=== PATIENT | male | born 1990 | race Caucasian/White ===

== ENCOUNTER 2019-06-23 10:38 | Inpatient (IN) | payer BC ==
[2019-06-23] VITALS (10 sets, daily range): BP systolic 139–155; BP diastolic 78–89
[~2019-06-23] VITALS: Ht 177.8 cm; Wt 100.0 kg
[2019-06-23] MEDS ORDERED: PROPOFOL 50 ML IV ONE ×5 (11:06→17:35)
[2019-06-23 11:09] LABS: BASO % 0 % (0-3); EOS % 0 % (0-3); HEMATOCRIT 48.4 % (39.0-53.0); HEMOGLOBIN 15.9 g/dL (13.0-17.5); LYMPH # 2.7 x10^3/uL (1.0-4.8); LYMPH % 19 % (24-48); MEAN CORPUSCULAR HEMOGLOBIN 30 pg (25-35); MEAN CORPUSCULAR HGB CONC 33 g/dL (31-37); MEAN CORPUSCULAR VOLUME 93 fL (79-100); MONO # 3.1 x10^3/uL (0.0-1.1); MONO % 22 % (0-9); NEUT # 8.3 x10^3/uL (1.8-7.7); NEUT % 59 % (31-73); PLATELET COUNT 352 x10^3/uL (140-400); RED BLOOD COUNT 5.22 x10^6/uL (4.30-5.70); RED CELL DISTRIBUTION WIDTH 12.8 % (11.5-14.5); WHITE BLOOD COUNT 14.2 x10^3/uL (4.0-11.0)
[2019-06-23] MEDS ORDERED: MIDAZOLAM HCL IV ONE (11:15)
[2019-06-23] MEDS ORDERED: NS IV ONE (11:15)
[2019-06-23] MEDS ORDERED: IV NORMAL SALINE 1000ML BAG 1,000 ML IV ONE ×3 (11:15→15:45)
--- NOTE | 2019-06-23 11:15 | PHYS DOC ---
Past Medical History Past Medical History: Seizure Additional Past Medical Histor: MS Past Medical History Limited due to acuity of condition/active seizure Past Surgical History: No Surgical History Past Surgical History Limited due to acuity of condition/active seizures Smoking Status: Never Smoker Alcohol Use: Occasionally Drug Use: Marijuana Social History Limited due to acuity of condition/active seizures Adult General Chief Complaint Chief Complaint: SEIZURE HPI HPI Patient is a 29 year old male presents to ED with ongoing seizure lasting greater than 10 minutes. Patient has history of MS and seizures in the past. His last seizure was roughly 1 year ago that was severe enough to be taken to [facility]. According to his parents and partner he was placed on a unknown seizure medication following last episode. This medication was stopped by his neurologist Perfecto Tuttle APRN at [facility] in December. Prior to this evening he had been dealing with gastroenteritis-like symptoms with nausea and vomiting and possible fever. His partner said that he was very lethargic thi s morning and his partner had to dress him. They were on the way to an urgent care when patient's right arm stiffened and he was unable to move it. They were in the middle of it going down the stairs. His partner stated that he carried the patient down the stairs. The patient then began seizing. He and his partner both fell to the ground. His partner was unsure about any head trauma. His partner reports concern due to vomiting and possible aspiration and therefore he placed him on his side and immediately dialed 911 and then patient's parents. In route to the hospital via EMT he received 10 mg of Versed IM which he was unresponsive to. No history of recent ETOH abuse or withdrawal seizures. Partner reports use of THC gummy bears this weekend during trip to [place]. Reports last used S at06/20/19. HPI limited due to acuity of condition/active seizure Review of Systems Review of Systems Constitutional: Reports subjective fever GI: Reports nausea and vomiting Neurologic: Reports active seizure like activity ROS limited due to acuity of condition/ active seizure Current Medications Current Medications Current Medications Medications (Trade) Dose Ordered Sig/Placido Start Time Stop Time Status Last Admin Dose Admin Acyclovir Sodium 800 mg/Dextrose 266 ml @ 266 mls/hr 1X ONCE 06/23/19 14:45 06/23/19 15:44 DC 06/23/19 15:18 266 MLS/HR Ceftriaxone Sodium (Rocephin) 2 gm 1X ONCE 06/23/19 14:30 06/23/19 14:31 DC 06/23/19 15:16 2 GM Dexamethasone Sodium Phosphate (Decadron) 10 mg 1X ONCE 06/23/19 14:30 06/23/19 14:31 DC 06/23/19 15:18 10 MG Levetiracetam 1000 mg/Dextrose 110 ml @ 440 mls/hr 1X ONCE 06/23/19 12:00 06/23/19 12:14 DC 06/23/19 12:19 440 MLS/HR Lidocaine HCl (Lidocaine 1% 20ml Vial) 20 ml 1X ONCE 06/23/19 12:30 06/23/19 12:31 DC 06/23/19 15:00 20 ML Lorazepam (Ativan Inj) 4 mg 1X ONCE 06/23/19 14:30 06/23/19 14:31 DC 06/23/19 14:22 4 MG Lorazepam 40 mg/ Sodium Chloride 270 ml @ 0 mls/hr CONT PRN 06/23/19 14:30 06/23/19 15:02 6.3 MLS/HR Midazolam HCl (Versed) 5 mg 1X ONCE 06/23/19 13:15 06/23/19 13:16 DC 06/23/19 10:49 5 MG Midazolam HCl 50 mg/Sodium Chloride 50 ml @ 1 mls/hr 1X ONCE 06/23/19 11:15 06/25/19 13:14 06/23/19 11:43 1 MLS/HR Propofol 50 ml @ 0 mls/hr 1X ONCE 06/23/19 11:30 06/23/19 11:31 DC 06/23/19 11:19 3 MLS/HR Rocuronium [place] (Zemuron) 50 mg 1X ONCE 06/23/19 13:15 06/23/19 13:16 DC 06/23/19 10:50 50 MG Sodium Chloride 1,000 ml @ 1,000 mls/hr 1X ONCE 06/23/19 12:30 06/23/19 13:29 DC 06/23/19 13:24 1,000 MLS/HR Vancomycin HCl 2 gm/Sodium Chloride 500 ml @ 250 mls/hr 1X ONCE 06/23/19 14:30 06/23/19 16:29 DC 06/23/19 17:27 250 MLS/HR Allergies Allergies Allergies Coded Allergies Type Severity Reaction Last Updated Verified No Known Drug Allergies 06/23/19 No Physical Exam Physical Exam Constitutional: Well developed, well nourished, active tonic clonic seizure HENT: Normocephalic, atraumatic, TMs clear, oropharynx moist Eyes: PERRL, conjunctiva normal, no discharge Neck: Supple, no stridor, no edema Cardiovascular: Heart rate tachycardic, regular rhythm Lungs & Thorax: Bilateral breath sounds diminished upon arrival, no wheezing /rales/rhonchi, required supplemental ventilation with BVM due to decreased respiratory effort Abdomen: Soft, no tenderness, no distention Skin: Warm, dry, no erythema, no laceration, area with raised lesions likely genital warts Extremities: No deformity, no edema Neurologic: Active generalized tonic clonic seizure activity, nonverbal Current Patient Data Vital Signs Vital Signs Date Time Temp Pulse Resp B/P (MAP) Pulse Ox O2 Delivery O2 Flow Rate FiO2 06/23/19 15:02 86 20 94 06/23/19 13:00 Ventilator 06/23/19 10:39 98.2 202/106 (138) 98.2 Lab Values Laboratory Tests Test 06/23/19 10:43 06/23/19 10:44 06/23/19 10:58 06/23/19 11:40 Glucose (Fingerstick) 154 mg/dL (70-99) H White Blood Count 14.2 x10^3/uL (4.0-11.0) H Red Blood Count 5.22 x10^6/uL (4.30-5.70) Hemoglobin 15.9 g/dL (13.0-17.5) Hematocrit 48.4 % (39.0-53.0) Mean Corpuscular Volume 93 fL (79-100) Mean Corpuscular Hemoglobin 30 pg (25-35) Mean Corpuscular Hemoglobin Concent 33 g/dL (31-37) Red Cell Distribution Width 12.8 % (11.5-14.5) Platelet Count 352 x10^3/uL (140-400) Neutrophils (%) (Auto) 59 % (31-73) Lymphocytes (%) (Auto) 19 % (24-48) L Monocytes (%) (Auto) 22 % (0-9) H Eosinophils (%) (Auto) 0 % (0-3) Basophils (%) (Auto) 0 % (0-3) Neutrophils # (Auto) 8.3 x10^3/uL (1.8-7.7) H Lymphocytes # (Auto) 2.7 x10^3/uL (1.0-4.8) Monocytes # (Auto) 3.1 x10^3/uL (0.0-1.1) H Eosinophils # (Auto) 0.0 x10^3/uL (0.0-0.7) Basophils # (Auto) 0.0 x10^3/uL (0.0-0.2) Segmented Neutrophils % 38 % (35-66) Band Neutrophils % 13 % (0-9) H Lymphocytes % 24 % (24-48) Monocytes % 25 % (0-10) H Platelet Estimate Adequate (ADEQUATE) Prothrombin Time 14.6 SEC (11.7-14.0) H Prothrombin Time INR 1.2 (0.8-1.1) H Activated Partial Thromboplast Time 33 SEC (24-38) Sodium Level 145 mmol/L (136-145) Potassium Level 4.8 mmol/L (3.5-5.1) Chloride Level 102 mmol/L (98-107) Carbon Dioxide Level 22 mmol/L (21-32) Anion Gap 21 (6-14) H Blood Urea Nitrogen 19 mg/dL (8-26) Creatinine 1.1 mg/dL (0.7-1.3) Estimated GFR (Cockcroft-Gault) 80.3 BUN/Creatinine Ratio 17 (6-20) Glucose Level 174 mg/dL (70-99) H Lactic Acid Level 14.2 mmol/L (0.4-2.0) *H Calcium Level 10.0 mg/dL (8.5-10.1) Magnesium Level 2.6 mg/dL (1.8-2.4) H Total Bilirubin 0.4 mg/dL (0.2-1.0) Aspartate Amino Transferase (AST) 16 U/L (15-37) Alanine Aminotransferase (ALT) 27 U/L (16-63) Alkaline Phosphatase 60 U/L (46-116) Creatine Kinase 83 U/L (39-308) Total Protein 8.0 g/dL (6.4-8.2) Albumin 4.6 g/dL (3.4-5.0) Albumin/Globulin Ratio 1.4 (1.0-1.7) Ethyl Alcohol Level < 10 mg/dL (0-10) O2 Saturation 99 % (92-99) Arterial Blood pH 7.24 (7.35-7.45) L Arterial Blood pCO2 at Patient Temp 48 mmHg (35-46) H Arterial Blood pO2 at Patient Temp 215 mmHg (85-108) H Arterial Blood HCO3 20 mmol/L (21-28) L Arterial Blood Base Excess -7 mmol/L (-3-3) L Oxyhemoglobin 97.8 % Methemoglobin 0.6 % (0.0-1.9) Carbon Monoxide, Quantitative 0.3 % (0.0-1.9) FiO2 Vent 100% Urine Collection Type U cath Urine Color Sara Urine Clarity Clear Urine pH 5.5 Urine Specific [place] 1.025 Urine Protein 100 mg/dL (NEG-TRACE) Urine Glucose (UA) Negative mg/dL (NEG) Urine Ketones (Stick) 15 mg/dL (NEG) Urine Blood Negative (NEG) Urine Nitrite Negative (NEG) Urine Bilirubin Negative (NEG) Urine Urobilinogen Dipstick 1.0 mg/dL (0.2 mg/dL) Urine Leukocyte Esterase Negative (NEG) Urine RBC 0 /HPF (0-2) Urine WBC 5-10 /HPF (0-4) Urine Bacteria Moderate /HPF (0-FEW) Urine Mucus Marked /LPF Urine Opiates Screen Neg (NEG) Urine Methadone Screen Neg (NEG) Urine Barbiturates Neg (NEG) Urine Phencyclidine Screen Neg (NEG) Urine Amphetamine/Methamphetamine Neg (NEG) Urine Benzodiazepines Screen Pos (NEG) Urine Cocaine Screen Neg (NEG) Urine Cannabinoids Screen Pos (NEG) Urine Ethyl Alcohol Neg (NEG) Test 06/23/19 14:50 CSF Tube Number 3 CSF Volume 2.0 CSF Color Colorless CSF Clarity Clear CSF WBC 3 /cmm (Not Established) CSF RBC 1 /cmm (Not Established) CSF Glucose 80 mg/dL (37-70) H CSF Total Protein 46.6 mg/dL (15.0-45.0) H Laboratory Tests 06/23/19 10:44 Laboratory Tests 06/23/19 10:44 Microbiology 06/23/19 CSF Gram Stain - Final, Complete EKG EKG [] Radiology/Procedures Radiology/Procedures PROCEDURE: PORTABLE CHEST 1V EXAM: CHEST 1 VIEW History: Hypoxia COMPARISON: None available. TECHNIQUE: Single portable radiograph of the chest FINDINGS: The ET tube is identified in the trachea the level of the clavicles. The feeding tube is identified in the stomach. The lungs are clear bilaterally. The costophrenic sulci are clear and well demarcated. IMPRESSION: 1. ET tube, feeding tube in place. 2. The lungs are clear. Electronically signed by: Onur Perez MD (06/23/2019 11:29 AM) [id number] PROCEDURE: CT HEAD WO CONTRAST CT HEAD WO CONTRAST Indication: Seizure. Exposure: One or more of the following individualized dose reduction techniques were utilized for this examination: 1. Automated exposure control 2. Adjustment of the mA and/or kV according to patient size 3. Use of iterative reconstruction technique. Technique: Standard imaging without intravenous contrast. Comparison: None FINDINGS: No evidence of acute infarct cranial hemorrhage, mass effect, midline shift or abnormal extra-axial fluid collection. Generalized enlargement of ventricles and sulci relative to the patient's age. Patchy white matter low attenuation bilaterally. Partially visualized orbits unremarkable. No large scalp hematoma is seen. The partially visualized sinuses demonstrate mild ethmoid sinus mucosal thickening and minimal right maxillary sinus mucosal thickening. The mastoids appear clear. IMPRESSION: 1. No evidence of acute intracranial hemorrhage. 2. Generalized atrophy, abnormally advanced for the patient's age. 3. Patchy white matter low attenuation, abnormal for the patient's age. Nonspecific, considerations include demyelination, leukodystrophy or congenital disorder. Correlate with patient history. Electronically signed by: Sarath Higgins MD (06/23/2019 1:05 PM) [id number] Course & Med Decision Making Course & Med Decision Making Pertinent Labs and Imaging studies reviewed. (See chart for details) Patient with pmh of MS and prior seizure requiring intubation and ICU stay at [facility] presents via EMS in status epileptics. Patient no longer on anti-seizure medications. Hx of N/V and possible fever yesterday. Patient continued with tonic clonic generalized seizure despite 10mg of IM Versed by EMS and additional 5mg of IV Versed upon arrival. Decision to protect airway. ETT successfully placed. CXR with good position of ETT and no acute infiltration noted. Patient started on Propofol and Versed gtt. Some initial improvement of seizure like a ctivity. Patient subsequently required intermittent doses to IV Ativan. Versed gtt changed to Ativan gtt. Keppra bolus also provided. CT head without acute process. Labs obtained and posted to chart. WBC and bandemia noted. Lactic acid significantly elevated. Discussed case with Dr. Blair (neurology) who recommended LP and is in agreement with admission. LP performed and empiric antibiotics and antivirals given. CSF with high glucose and no significant WBCs noted. Cannot fully exclude viral. HIV and HSV pending. Dr. Blair also requesting STAT MRI brain which was ordered. Patient requiring ICU admission for further evaluation and treatment. Discussed case with Dr. Hairston (hospitalist) who is in agreement with admission. Discussed findings and plan with patient's partner and family, who acknowledge understanding and agreement. Dragon Disclaimer Dragon Disclaimer This electronic medical record was generated, in whole or in part, using a voice recognition dictation system. Intubation Intubation : Intubation Method: orotracheal Tube Size (cm): 8.0 Medications: Versed (5mg) Breath Sounds after Intubation: equal Intubation Complications: no complications Post Intubation Xray: Yes Progress/Xray Impression: Good position of ETT Progress Emergent consent utilized. Time out performed. Hand hygiene utilized. Patient with active seizures despite multiple medications given. Decision to protect airway and place patient on Propofol. Becerril direct laryngoscope utilized. 8.0 cuffed endotracheal tube placed over bougie. Placed at 24 cm at teeth. End tidal CO2 positive with good fogging of tube and equal breath sounds bilaterally. Pa christina tolerated procedure well and without difficulty. Additional Procedures Additional Procedures : Additional Procedures: lumbar puncture Progress Written consent obtained from family. Time out performed. Patient placed in lateral recombinant position on left side. Hand hygiene utilized. Sterile attire donned. Betadine swaps applied and sterile drapes utilized. Anesthesia obtained with 1% lidocaine x 3mls via 25g hypodermic needle at L4/L5 level. 22g spinal needle placed with successful placement into spinal canal. Opening pressure 24mmHg. CSF clear. Vial sample obtained. Spinal needle removed and direct pressure held. Sterile bandaid applied. Betadine then removed from skin. Patient tolerated procedure well and without difficulty. Departure Departure Impression: Primary Impression: Status epilepticus Additional Impressions: Bandemia Leukocytosis Disposition: ADMITTED INPATIENT Condition: CRITICAL Critical Care Time Critical care time was 45 minutes which includes time at bedside, spent in discussion of patient's care with specialists and/or family members, with interpretation of laboratory and/or radiological studies and is exclusive of procedures. Problem Qualifiers Additional Impressions: Leukocytosis Leukocytosis type: unspecified Qualified Codes: D72.829 - Elevated white blood cell count, unspecified SARATH WINTER DO Jun 23, 2019 11:15
--- NOTE | 2019-06-23 11:33 | RAD ---
EXAM: CHEST 1 VIEW History: Hypoxia COMPARISON: None available. TECHNIQUE: Single portable radiograph of the chest FINDINGS: The ET tube is identified in the trachea the level of the clavicles. The feeding tube is identified in the stomach. The lungs are clear bilaterally. The costophrenic sulci are clear and well demarcated. IMPRESSION: 1. ET tube, feeding tube in place. 2. The lungs are clear. Electronically signed by: Onur Perez MD (06/23/2019 11:29 AM) [id number]
[2019-06-23] MEDS: MIDAZOLAM HCL/PF 2 MG/2 ML VIAL. IV PRN ×2 (11:38→16:13)
[2019-06-23 11:49] LABS: BILIRUBIN,URINE NEGATIVE (NEG); CLARITY,URINE CLEAR; COLOR,URINE AMBER; NITRITE,URINE NEGATIVE (NEG); PH,URINE 5.5; PROTEIN,URINE 100 mg/dL (NEG-TRACE)
[2019-06-23 11:51] LABS: PROTHROMBIN TIME PATIENT 14.6 SEC (11.7-14.0)
[2019-06-23 11:56] LABS: BARBITURATES NEG (NEG); BENZODIAZEPINES POS (NEG); CANNABINOIDS POS (NEG); COCAINE NEG (NEG); METHADONE NEG (NEG); OPIATES NEG (NEG); PHENCYCLIDINE NEG (NEG)
[2019-06-23 11:58] LABS: BACTERIA,URINE MODERATE /HPF (0-FEW); RBC,URINE 0 /HPF (0-2)
[2019-06-23] MEDS ORDERED: levETIRAcetam 1,000 MG in IV DEXTROSE 5% 100ML 100 ML IV ONE (12:00)
[2019-06-23 12:03] LABS: % BANDS 13 % (0-9); % LYMPHS 24 % (24-48); % MONOS 25 % (0-10); % SEGS 38 % (35-66); CREATININE 1.1 mg/dL (0.7-1.3); GFR 80.3; POTASSIUM 4.8 mmol/L (3.5-5.1)
[2019-06-23 12:04] LABS: PLT ESTIMATE ADEQUATE (ADEQUATE)
[2019-06-23 12:06] LABS: AMPHETAMINE/METHAMPHETAMINE NEG (NEG)
[2019-06-23 12:07] LABS: BASE EXCESS COOX -7 mmol/L (-3-3); HCO3 COOX 20 mmol/L (21-28); METHEMOGLOBIN 0.6 % (0.0-1.9); OXYHEMOGLOBIN 97.8 %; PCO2 COOX 48 mmHg (35-46); PO2 COOX 215 mmHg (85-108); SAT O2 COOX 99 % (92-99)
[2019-06-23 12:09] LABS: ALBUMIN 4.6 g/dL (3.4-5.0); ALBUMIN/GLOBULIN RATIO 1.4 (1.0-1.7); MAGNESIUM 2.6 mg/dL (1.8-2.4); TOTAL BILIRUBIN 0.4 mg/dL (0.2-1.0)
[2019-06-23] MEDS ORDERED: LIDOCAINE 1% Multi-Dose 20 ML VIAL. INJ ONE (12:30)
--- NOTE | 2019-06-23 13:08 | RAD ---
CT HEAD WO CONTRAST Indication: Seizure. Exposure: One or more of the following individualized dose reduction techniques were utilized for this examination: 1. Automated exposure control 2. Adjustment of the mA and/or kV according to patient size 3. Use of iterative reconstruction technique. Technique: Standard imaging without intravenous contrast. Comparison: None FINDINGS: No evidence of acute infarct cranial hemorrhage, mass effect, midline shift or abnormal extra-axial fluid collection. Generalized enlargement of ventricles and sulci relative to the patient's age. Patchy white matter low attenuation bilaterally. Partially visualized orbits unremarkable. No large scalp hematoma is seen. The partially visualized sinuses demonstrate mild ethmoid sinus mucosal thickening and minimal right maxillary sinus mucosal thickening. The mastoids appear clear. IMPRESSION: 1. No evidence of acute intracranial hemorrhage. 2. Generalized atrophy, abnormally advanced for the patient's age. 3. Patchy white matter low attenuation, abnormal for the patient's age. Nonspecific, considerations include demyelination, leukodystrophy or congenital disorder. Correlate with patient history. Electronically signed by: Sarath Higgins MD (06/23/2019 1:05 PM) [id number]
[2019-06-23] MEDS ORDERED: MIDAZOLAM HCL/PF 5 MG/5 ML VIAL. IV ONE ×2 (13:15)
[2019-06-23] MEDS ORDERED: ROCURONIUM 50 MG/5 ML VIAL. IV ONE (13:15)
[2019-06-23] MEDS ORDERED: DEXTROSE 5% IV ONE (14:30)
[2019-06-23] MEDS ORDERED: VANCOMYCIN 2 GM in IV NORMAL SALINE 500ML BAG 500 ML IV ONE (14:30)
[2019-06-23] MEDS ORDERED: cefTRIAXone IV Push 1 GM VIAL. IVP ONE (14:30)
[2019-06-23] MEDS ORDERED: LORazepam 40 MG in IV NORMAL SALINE 250ML 250 ML IV PRN (14:30)
[2019-06-23] MEDS ORDERED: DEXAMETHASONE SOD PHOS 4 MG/ML VIAL IVP ONE (14:30)
[2019-06-23] MEDS ORDERED: ACYCLOVIR SODIUM IV ONE (14:30)
[2019-06-23] MEDS ORDERED: ACYCLOVIR SODIUM 800 MG in IV DEXTROSE 5% 250 ML IV ONE (14:45)
[2019-06-23 15:16] LABS: CSF PROTEIN 46.6 mg/dL (15.0-45.0)
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
[2019-06-23] MEDS ORDERED: fentaNYL PF VIAL 100 MCG/2 ML VIAL IV PRN (15:45)
[2019-06-23] MEDS ORDERED: ONDANSETRON PF 4 MG/2 ML VIAL. IV PRN ×2 (15:45→20:00)
[2019-06-23 15:47] LABS: CSF CLARITY CLEAR; CSF COLOR COLORLESS
[2019-06-23 15:48] LABS: CSF RBC COUNT 1 /cmm (Not Established)
[2019-06-23 15:49] LABS: CSF WBC COUNT 3 /cmm (Not Established)
[2019-06-23] MEDS ORDERED: levETIRAcetam 750 MG in IV DEXTROSE 5% 100ML 100 ML IV SCH (17:00)
--- NOTE | 2019-06-23 17:02 | PDOC2 ---
NEUROLOGY CONSULT Date of Admission Date of Admission DATE: 06/23/19 TIME: 16:32 Reason for Consult Reason for Consult: IMPRESSION: Status epilepticus. Seizure x 1 a year ago. Postural status. Hypoxia. Respiratory failure. Metabolic encephalopathy. Lactic acidosis. Fever on 06/22/19. Leukocytosis. MS. Genital wards likely. Obesity. RECOMMENDATIONS/PLAN: Life support treatments provided in ER. Ativan IV, several doses administrated. Keppra 500 mg IV q12h. HCT performed no SAH, ICH or other acute findings. LP performed. Lab: see orders. HSV by PCR, HIV, EBV IgM and IgG included. Brain MRI w/wo contrast. EEG. Treat medical diseases. HISTORY OF THE PRESENT ILLNESS: This is a 29-year-old male patient with history of MS and seizure. He was brought to the ER of [facility] on 06/23/19 due to persistent seizures. He was reportedly to have a seizure about 1 year ago that was severe enough to be taken to [facility]. According to his parents and partner he was placed on a unknown seizure medication following last episode. This medication was stopped by his neurologist Perfecto Tuttle APRN at [facility] in December of 2018. Prior to this evening he had been dealing with gastroenteritis-like symptoms with nausea and vomiting. His partner said that he was very lethargic this morning and his partner had to dress him. They were on the way to an urgent care when patient's right arm stiffened and he was unable to move it. They were in the middle of it going down the stairs. His partner stated that he carried the patient down the stairs. The patient then began seizing. He and his partner both fell to the ground. His partner was unsure about any head trauma. His partner placed him on his side and immediately dialed 911 and his parents. In route to the hospital via EMT he received 10 mg of Versed was given. He was still seizing in the ER of [facility] and eventually stopped by Ativan and Versed. PAST MEDICAL HISTORY: Seizure MS PAST SURGERY HISTORY: No major surgery recently. ALLERGY: Unknown MEDICATIONS: Refer to [facility] HISTORY: Non contributory. SOCIAL HISTORY: Lives with his partner. Denies smoking. He drinks alcohol occasionally. He uses/abuses marijuana. REVIEW OF SYSTEMS: Constitutional: No malnutrition, weight loss, cachexia. Head: No traumatic brain or head injury. Skin: No edema, or rash. Ear: No infection. Eyes: No vision loss or color blindness. Nose: No bleeding or purulent discharges. Hearing: No hearing decrease. Neck: No injury. Cardiac: No NE, arrhythmia,claudication. Pulmonary: Pneumonia. GI: No GI ulcer, GI bleeding. Urinary/genital: UTI. Endocrinologic: Diabetes Mellitus. Skeletomuscular: No muscular atrophy, deformity. Neurological: Seizure, MS. Psychiatric: Marijuana use/abuse. Otherwise, not [id number] review of systems. PHYSICAL EXAMINATION: General appearance is in acute distress. HEENT: Normocephalic and nontraumatic. Eyes, nose, ears, and throat are unremarkable. Neck is supple. No crepitus. Cardiovascular: S1, S2, regular rate and rhythm. Pulmonary: On vent. Abdomen: Bowel sounds are positive. Extremities: No rash, lesions, or edema. No restriction of range of motion NEUROLOGICAL EXAMINATION: On vent. Unresponsiveness. Postural episodes noted. Not oriented to time, place and person. Pupils 1.5 mm, insensitive to light stimuli. EOMI not elicited. CN: no focal findings elicited. Muscle tone: Increased due to periodical posturing. Muscle strength: No movements to pain stimuli. DTR: 1 Plantar reflex: Neutral response bilaterally Gait: not able to walk. Sensory exam: Minimal response to stimuli. Not able to access cerebellar signs. F-T-N test not performed due to unresponsiveness. Current Medications Current Medications Current Medications Propofol 100 ml @ 0 mls/hr CONT PRN IV SEE PROTOCOL; Start 06/23/19 at 11:00 Chlorhexidine Gluconate (Peridex) 15 ml BID MM ; Start 06/23/19 at 21:00 Midazolam HCl (Versed) 2 mg PRN Q30MIN PRN IV SEE COMMENTS. Last administered on 06/23/19at 16:13; Start 06/23/19 at 11:00 Sodium Chloride 1,000 ml @ 1,000 mls/hr 1X ONCE IV Last administered on 06/23/19at 11:23; Start 06/23/19 at 11:15; Stop 06/23/19 at 12:14; Status DC Propofol 50 ml @ As Directed STK-MED ONCE IV ; Start 06/23/19 at 11:06; Stop 06/23/19 at 11:06; Status DC Midazolam HCl 50 mg/Sodium Chloride 50 ml @ 1 mls/hr 1X ONCE IV Last administered on 06/23/19at 11:43; Start 06/23/19 at 11:15; Stop 06/25/19 at 13:14 Propofol 50 ml @ 0 mls/hr 1X ONCE IV Last administered on 06/23/19at 11:19; Start 06/23/19 at 11:30; Stop 06/23/19 at 11:31; Status DC Propofol 50 ml @ 0 mls/hr 1X ONCE IV Last administered on 06/23/19at 11:19; Start 06/23/19 at 11:30; Stop 06/23/19 at 11:31; Status DC Levetiracetam 1000 mg/Dextrose 110 ml @ 440 mls/hr 1X ONCE IV Last administered on 06/23/19at 12:19; Start 06/23/19 at 12:00; Stop 06/23/19 at 12:14; Status DC Lorazepam (Ativan Inj) 4 mg 1X ONCE IVP Last administered on 06/23/19at 11:59; Start 06/23/19 at 12:00; Stop 06/23/19 at 12:01; Status DC Lidocaine HCl (Lidocaine 1% 20ml Vial) 20 ml 1X ONCE INJ Last administered on 06/23/19at 15:00; Start 06/23/19 at 12:30; Stop 06/23/19 at 12:31; Status DC Sodium Chloride 1,000 ml @ 1,000 mls/hr 1X ONCE IV Last administered on 06/23at 13:24; Start 06/23/19 at 12:30; Stop 06/23/19 at 13:29; Status DC Midazolam HCl (Versed) 5 mg 1X ONCE IV Last administered on 06/23/19at 10:43; Start 06/23/19 at 13:15; Stop 06/23/19 at 13:16; Status DC Midazolam HCl (Versed) 5 mg 1X ONCE IV Last administered on 06/23/19at 10:49; Start 06/23/19 at 13:15; Stop 06/23/19 at 13:16; Status DC Rocuronium [place] (Zemuron) 50 mg 1X ONCE IV Last administered on 06/23/19at 10:50; Start 06/23/19 at 13:15; Stop 06/23/19 at 13:16; Status DC Lorazepam (Ativan Inj) 2 mg PRN Q1HR PRN IVP TREMORS Last administered on 06/23/19at 13:19; Start 06/23/19 at 13:30 Lorazepam (Ativan Inj) 4 mg 1X ONCE IVP Last administered on 06/23/19at 14:22; Start 06/23/19 at 14:30; Stop 06/23/19 at 14:31; Status DC Lorazepam 40 mg/ Sodium Chloride 270 ml @ 0 mls/hr CONT PRN IV SEE PROTOCOL Last administered on 06/23/19at 15:02; Start 06/23/19 at 14:30 Ceftriaxone Sodium (Rocephin) 2 gm 1X ONCE IVP Last administered on 06/23/19at 15:16; Start 06/23/19 at 14:30; Stop 06/23/19 at 14:31; Status DC Vancomycin HCl 2 gm/Sodium Chloride 500 ml @ 250 mls/hr 1X ONCE IV ; Start 06/23/19 at 14:30; Stop 06/23/19 at 16:29; Status DC Dexamethasone Sodium Phosphate (Decadron) 10 mg 1X ONCE IVP Last administered on 06/23/19at 15:18; Start 06/23/19 at 14:30; Stop 06/23/19 at 14:31; Status DC Acyclovir Sodium 800 mg/Dextrose 116 ml @ 116 mls/hr 1X ONCE IV ; Start 06/06 12/23 at 14:30; Stop 06/23/19 at 14:36; Status DC Acyclovir Sodium 800 mg/Dextrose 266 ml @ 266 mls/hr 1X ONCE IV Last admini stered on 06/23/19at 15:18; Start 06/23/19 at 14:45; Stop 06/23/19 at 15:44; Status DC Ondansetron HCl (Zofran) 4 mg PRN Q8HRS PRN IV NAUSEA/VOMITING; Start 06/23/19 at 15:45; Stop 06/24/19 at 15:44 Fentanyl Citrate (Fentanyl 2ml Vial) 50 mcg PRN Q1HR PRN IV PAIN; Start 06/23/19 at 15:45; Stop 06/24/19 at 15:44 Sodium Chloride 1,000 ml @ 125 mls/hr 1X ONCE IV ; Start 06/23/19 at 15:45; Stop 06/23/19 at 23:44 Propofol 50 ml @ As Directed STK-MED ONCE IV ; Start 06/23/19 at 16:02; Stop 06/23/19 at 16:02; Status DC Allergies Allergies: Allergies Coded Allergies Type Severity Reaction Last Updated Verified No Known Drug Allergies 06/23/19 No ROS Review of System The patient denies any associated fevers, chills, headache, ear pain, rhinorrhea, sore throat, stiff neck, productive cough, chest pain, shortness of breath, back or flank pain, abdominal pain, nausea, vomiting, diarrhea, constipation, dysuria, rash, numbness, weakness, tingling, incontinence, difficulty ambulating, or diaphoresis. Physical Exam Physical Exam General: Well developed, well nourished, no acute distress, well appearing HEENT: Pupils equally round and reactive to light, EOMI, no discharge, normal conjunctiva Neck: Supple, no nuchal rigidity, no JVD, trachea midline, no tenderness Cardiac: RRR, no murmurs, no gallops, no rubs Chest/Lungs: CTAB, no wheeze, no rhonchi, no crackles Abdomen: soft, non-distended, no guarding, no peritoneal signs, non-tender Back: No tenderness Extremities: no edema, pulses intact, non-tender,capillary refill <3 sec bilateral upper and lower extremities, Neuro: Alert and oriented x 4, no focal deficits, normal speech Vitals Vitals: Vital Signs Date Time Temp Pulse Resp B/P (MAP) Pulse Ox O2 Delivery O2 Flow Rate FiO2 06/23/19 13:00 Ventilator Labs Labs Laboratory Tests Test 06/23/19 10:43 06/23/19 10:44 06/23/19 10:58 06/23/19 11:40 Glucose (Fingerstick) 154 mg/dL (70-99) White Blood Count 14.2 x10^3/uL (4.0-11.0) Red Blood Count 5.22 x10^6/uL (4.30-5.70) Hemoglobin 15.9 g/dL (13.0-17.5) Hematocrit 48.4 % (39.0-53.0) Mean Corpuscular Volume 93 fL (79-100) Mean Corpuscular Hemoglobin 30 pg (25-35) Mean Corpuscular Hemoglobin Concent 33 g/dL (31-37) Red Cell Distribution Width 12.8 % (11.5-14.5) Platelet Count 352 x10^3/uL (140-400) Neutrophils (%) (Auto) 59 % (31-73) Lymphocytes (%) (Auto) 19 % (24-48) Monocytes (%) (Auto) 22 % (0-9) Eosinophils (%) (Auto) 0 % (0-3) Basophils (%) (Auto) 0 % (0-3) Neutrophils # (Auto) 8.3 x10^3/uL (1.8-7.7) Lymphocytes # (Auto) 2.7 x10^3/uL (1.0-4.8) Monocytes # (Auto) 3.1 x10^3/uL (0.0-1.1) Eosinophils # (Auto) 0.0 x10^3/uL (0.0-0.7) Basophils # (Auto) 0.0 x10^3/uL (0.0-0.2) Segmented Neutrophils % 38 % (35-66) Band Neutrophils % 13 % (0-9) Lymphocytes % 24 % (24-48) Monocytes % 25 % (0-10) Platelet Estimate Adequate (ADEQUATE) Prothrombin Time 14.6 SEC (11.7-14.0) Prothromb Time International Ratio 1.2 (0.8-1.1) Activated Partial Thromboplast Time 33 SEC (24-38) Sodium Level 145 mmol/L (136-145) Potassium Level 4.8 mmol/L (3.5-5.1) Chloride Level 102 mmol/L (98-107) Carbon Dioxide Level 22 mmol/L (21-32) Anion Gap 21 (6-14) Blood Urea Nitrogen 19 mg/dL (8-26) Creatinine 1.1 mg/dL (0.7-1.3) Estimated GFR (Cockcroft-Gault) 80.3 BUN/Creatinine Ratio 17 (6-20) Glucose Level 174 mg/dL (70-99) Lactic Acid Level 14.2 mmol/L (0.4-2.0) Calcium Level 10.0 mg/dL (8.5-10.1) Magnesium Level 2.6 mg/dL (1.8-2.4) Total Bilirubin 0.4 mg/dL (0.2-1.0) Aspartate Amino Transf (AST/SGOT) 16 U/L (15-37) Alanine Aminotransferase (ALT/SGPT) 27 U/L (16-63) Alkaline Phosphatase 60 U/L (46-116) Creatine Kinase 83 U/L (39-308) Total Protein 8.0 g/dL (6.4-8.2) Albumin 4.6 g/dL (3.4-5.0) Albumin/Globulin Ratio 1.4 (1.0-1.7) Ethyl Alcohol Level < 10 mg/dL (0-10) O2 Saturation 99 % (92-99) Arterial Blood pH 7.24 (7.35-7.45) Arterial Blood pCO2 at Patient Temp 48 mmHg (35-46) Arterial Blood pO2 at Patient Temp 215 mmHg (85-108) Arterial Blood HCO3 20 mmol/L (21-28) Arterial Blood Base Excess -7 mmol/L (-3-3) Oxyhemoglobin 97.8 % Methemoglobin 0.6 % (0.0-1.9) Carbon Monoxide, Quantitative 0.3 % (0.0-1.9) FiO2 Vent 100% Urine Collection Type U cath Urine Color Sara Urine Clarity Clear Urine pH 5.5 Urine Specific Bangs 1.025 Urine Protein 100 mg/dL (NEG-TRACE) Urine Glucose (UA) Negative mg/dL (NEG) Urine Ketones (Stick) 15 mg/dL (NEG) Urine Blood Negative (NEG) Urine Nitrite Negative (NEG) Urine Bilirubin Negative (NEG) Urine Urobilinogen Dipstick 1.0 mg/dL (0.2 mg/dL) Urine Leukocyte Esterase Negative (NEG) Urine RBC 0 /HPF (0-2) Urine WBC 5-10 /HPF (0-4) Urine Bacteria Moderate /HPF (0-FEW) Urine Mucus Marked /LPF Urine Opiates Screen Neg (NEG) Urine Methadone Screen Neg (NEG) Urine Barbiturates Neg (NEG) Urine Phencyclidine Screen Neg (NEG) Urine Amphetamine/Methamphetamine Neg (NEG) Urine Benzodiazepines Screen Pos (NEG) Urine Cocaine Screen Neg (NEG) Urine Cannabinoids Screen Pos (NEG) Urine Ethyl Alcohol Neg (NEG) Test 06/23/19 14:50 CSF Tube Number 3 CSF Volume 2.0 CSF Color Colorless CSF Clarity Clear CSF WBC 3 /cmm (Not Established) CSF RBC 1 /cmm (Not Established) CSF Glucose 80 mg/dL (37-70) CSF Total Protein 46.6 mg/dL (15.0-45.0) Laboratory Tests Test 06/23/19 10:43 06/23/19 10:44 06/23/19 10:58 06/23/19 11:40 Glucose (Fingerstick) 154 mg/dL (70-99) White Blood Count 14.2 x10^3/uL (4.0-11.0) Red Blood Count 5.22 x10^6/uL (4.30-5.70) Hemoglobin 15.9 g/dL (13.0-17.5) Hematocrit 48.4 % (39.0-53.0) Mean Corpuscular Volume 93 fL (79-100) Mean Corpuscular Hemoglobin 30 pg (25-35) Mean Corpuscular Hemoglobin Concent 33 g/dL (31-37) Red Cell Distribution Width 12.8 % (11.5-14.5) Platelet Count 352 x10^3/uL (140-400) Neutrophils (%) (Auto) 59 % (31-73) Lymphocytes (%) (Auto) 19 % (24-48) Monocytes (%) (Auto) 22 % (0-9) Eosinophils (%) (Auto) 0 % (0-3) Basophils (%) (Auto) 0 % (0-3) Neutrophils # (Auto) 8.3 x10^3/uL (1.8-7.7) Lymphocytes # (Auto) 2.7 x10^3/uL (1.0-4.8) Monocytes # (Auto) 3.1 x10^3/uL (0.0-1.1) Eosinophils # (Auto) 0.0 x10^3/uL (0.0-0.7) Basophils # (Auto) 0.0 x10^3/uL (0.0-0.2) Segmented Neutrophils % 38 % (35-66) Band Neutrophils % 13 % (0-9) Lymphocytes % 24 % (24-48) Monocytes % 25 % (0-10) Platelet Estimate Adequate (ADEQUATE) Prothrombin Time 14.6 SEC (11.7-14.0) Prothromb Time International Ratio 1.2 (0.8-1.1) Activated Partial Thromboplast Time 33 SEC (24-38) Sodium Level 145 mmol/L (136-145) Potassium Level 4.8 mmol/L (3.5-5.1) Chloride Level 102 mmol/L (98-107) Carbon Dioxide Level 22 mmol/L (21-32) Anion Gap 21 (6-14) Blood Urea Nitrogen 19 mg/dL (8-26) Creatinine 1.1 mg/dL (0.7-1.3) Estimated GFR (Cockcroft-Gault) 80.3 BUN/Creatinine Ratio 17 (6-20) Glucose Level 174 mg/dL (70-99) Lactic Acid Level 14.2 mmol/L (0.4-2.0) Calcium Level 10.0 mg/dL (8.5-10.1) Magnesium Level 2.6 mg/dL (1.8-2.4) Total Bilirubin 0.4 mg/dL (0.2-1.0) Aspartate Amino Transf (AST/SGOT) 16 U/L (15-37) Alanine Aminotransferase (ALT/SGPT) 27 U/L (16-63) Alkaline Phosphatase 60 U/L (46-116) Creatine Kinase 83 U/L (39-308) Total Protein 8.0 g/dL (6.4-8.2) Albumin 4.6 g/dL (3.4-5.0) Albumin/Globulin Ratio 1.4 (1.0-1.7) Ethyl Alcohol Level < 10 mg/dL (0-10) O2 Saturation 99 % (92-99) Arterial Blood pH 7.24 (7.35-7.45) Arterial Blood pCO2 at Patient Temp 48 mmHg (35-46) Arterial Blood pO2 at Patient Temp 215 mmHg (85-108) Arterial Blood HCO3 20 mmol/L (21-28) Arterial Blood Base Excess -7 mmol/L (-3-3) Oxyhemoglobin 97.8 % Methemoglobin 0.6 % (0.0-1.9) Carbon Monoxide, Quantitative 0.3 % (0.0-1.9) FiO2 Vent 100% Urine Collection Type U cath Urine Color Sara Urine Clarity Clear Urine pH 5.5 Urine Specific Bangs 1.025 Urine Protein 100 mg/dL (NEG-TRACE) Urine Glucose (UA) Negative mg/dL (NEG) Urine Ketones (Stick) 15 mg/dL (NEG) Urine Blood Negative (NEG) Urine Nitrite Negative (NEG) Urine Bilirubin Negative (NEG) Urine Urobilinogen Dipstick 1.0 mg/dL (0.2 mg/dL) Urine Leukocyte Esterase Negative (NEG) Urine RBC 0 /HPF (0-2) Urine WBC 5-10 /HPF (0-4) Urine Bacteria Moderate /HPF (0-FEW) Urine Mucus Marked /LPF Urine Opiates Screen Neg (NEG) Urine Methadone Screen Neg (NEG) Urine Barbiturates Neg (NEG) Urine Phencyclidine Screen Neg (NEG) Urine Amphetamine/Methamphetamine Neg (NEG) Urine Benzodiazepines Screen Pos (NEG) Urine Cocaine Screen Neg (NEG) Urine Cannabinoids Screen Pos (NEG) Urine Ethyl Alcohol Neg (NEG) Test 06/23/19 14:50 CSF Tube Number 3 CSF Volume 2.0 CSF Color Colorless CSF Clarity Clear CSF WBC 3 /cmm (Not Established) CSF RBC 1 /cmm (Not Established) CSF Glucose 80 mg/dL (37-70) CSF Total Protein 46.6 mg/dL (15.0-45.0) RADHA WORRELL MD Jun 23, 2019 17:02
[2019-06-23] MEDS ORDERED: GADOTERATE 5 MMOL/10ML VIAL. IVP ONE ×2 (17:45)
--- NOTE | 2019-06-23 19:50 | RAD ---
MRI Brain with and without contrast History: Status epilepticus Technique: Multiplanar, multi sequential pre and postcontrast MR imaging was performed of the brain. Comparison: None other than head CT this same day. Findings: There is some motion degradation. There is some signal loss on diffusion sequence in the left parietal temporal region. There is no convincing evidence of recent infarct. There is no midline shift, intra-axial mass effect, or nodular parenchymal or leptomeningeal enhancement. There is multifocal moderate to severe T2 and FLAIR hyperintense signal abnormality of the supratentorial parenchyma bilaterally greatest of the bilateral parietal and periatrial white matter. There is some extent of T2 and FLAIR hyperintense signal close to the cortical surface in the right parietal region although signal abnormalities primarily centered in the white matter. There is moderate ethmoid air cell mucosal thickening, to lesser degree the sphenoid sinus. There is [id number] right and minimal left maxillary sinus mucosal thickening, small right maxillary sinus air-fluid level. There is some fluid in the pharynx. Cerebellar tonsils are normal in location. There is preserved marrow signal of the clivus. There is no abnormality of pineal gland or pituitary gland. There is minimal patchy fluid and thickening of the left mastoid air cells, minimal thickening on the right. IMPRESSION: 1. There is no abnormal intracranial enhancement or evidence of recent infarct. There is scattered multifocal moderate to severe T2 and FLAIR hyperintense signal abnormality of the supratentorial parenchyma bilaterally primarily centered in the white matter. In a patient this age, sequela of inflammatory demyelinating disease is considered most likely unless there is suspicion for inherited disease such as CADASIL. Symmetric pattern and distribution of involvement would be atypical for sequela of infectious etiology. 2. There is paranasal sinus mucosal thickening as stated, small right maxillary sinus air-fluid level. Electronically signed by: Jeffrey Diaz MD (06/23/2019 7:46 PM) [id number]
[2019-06-23] MEDS: PROPOFOL 100 ML IV PRN (20:08)
[2019-06-23 21:00] LABS: INFLUENZA A PATIENT POSITIVE (NEGATIVE); INFLUENZA B PATIENT NEGATIVE (NEGATIVE)
[2019-06-23] MEDS: OSELTAMIVIR 30 MG/5 ML ORAL.SUSP. PEG SCH (23:19)
[2019-06-23] MEDS: CHLORHEXIDINE 0.12% 15 ML MOUTHWASH. MM SCH (23:19)
[2019-06-23] MEDS: levETIRAcetam 750 MG in IV DEXTROSE 5% 100ML 100 ML IV SCH (23:22)
[2019-06-24] VITALS (24 sets, daily range): BP systolic 108–157; BP diastolic 49–88
[2019-06-24] MEDS: ACYCLOVIR SODIUM 800 MG in IV DEXTROSE 5% 250 ML IV SCH ×4 (00:09→23:16)
[2019-06-24] MEDS: VANCOMYCIN PER PHARMACY MC PRN ×3 (01:17→17:55)
--- NOTE | 2019-06-24 01:17 | NUR ---
Pharmacy Vancomycin Dosing Note S:Consulted to monitor and dose vancomycin started 06/23/19. O:FLORES VASQUES is a 29 year old M with Meningitis . Height: 6 feet, 1 inches Weight: 104 kg [place] Body Weight: 79.90 Adjusted Body Weight: 89.54 Dosing Weight: Actual Other Antibiotics: CEFTRIAXONE 2GM LABS: Last BUN: 19 Last Creatinine: 1.1 Creatinine Clearance: 127 mL/min Last WBC: 14.2 Last Procalcitonin: Tmax (past 24 hours): Microbiology: I/O: Drug Levels: Last level: on at Last dose given 06/23/19 at 1700 Vancomycin Dosing: Loading Dose: 2000 mg x1 Dosing Weight: Actual Target Trough: 15-20 A: Based on: WT AND CRCL P: 1. Begin Vancomycin 1500 mg IV q8h 2. Follow up Trough level on 06/24/19 at 1630 3. Pharmacy will continue to monitor, follow and adjust therapy as needed. ERNIE VALLEJO RPH, 06/24/19 0117 Signed: 06/24/19 at 0118 by ERNIE VALLEJO RPH PHA
[2019-06-24] MEDS: PROPOFOL 100 ML IV PRN ×3 (01:24→19:44)
[2019-06-24] MEDS: VANCOMYCIN 1.5 GM in IV NORMAL SALINE 500ML BAG 500 ML IV SCH ×3 (02:30→17:00)
[2019-06-24 05:17] LABS: BASO % 0 % (0-3); EOS % 0 % (0-3); HEMATOCRIT 39.1 % (39.0-53.0); HEMOGLOBIN 13.5 g/dL (13.0-17.5); LYMPH # 0.5 x10^3/uL (1.0-4.8); LYMPH % 6 % (24-48); MEAN CORPUSCULAR HEMOGLOBIN 30 pg (25-35); MEAN CORPUSCULAR HGB CONC 35 g/dL (31-37); MONO # 1.6 x10^3/uL (0.0-1.1); MONO % 19 % (0-9); NEUT # 6.3 x10^3/uL (1.8-7.7); NEUT % 75 % (31-73); PLATELET COUNT 220 x10^3/uL (140-400); RED BLOOD COUNT 4.52 x10^6/uL (4.30-5.70); RED CELL DISTRIBUTION WIDTH 12.5 % (11.5-14.5); WHITE BLOOD COUNT 8.4 x10^3/uL (4.0-11.0)
[2019-06-24 05:18] LABS: MEAN CORPUSCULAR VOLUME 89 fL (79-100)
[2019-06-24 05:25] LABS: CALCIUM 8.4 mg/dL (8.5-10.1); CREATININE 0.7 mg/dL (0.7-1.3); GFR 135.3; POTASSIUM 3.7 mmol/L (3.5-5.1)
[2019-06-24 08:02] LABS: BASE EXCESS ABG 1 mmol/L (-3-3); HCO3 ABG 23 mmol/L (21-28); PCO2 ABG 31 mmHg (35-46); PO2 ABG 115 mmHg (85-108); SAT O2 ABG 98 % (92-99)
[2019-06-24] MEDS ORDERED: DIVA-53 PO (08:43)
[2019-06-24] MEDS ORDERED: CHOL500062 PO (08:43)
[2019-06-24] MEDS ORDERED: GINK60CA PO (08:43)
[2019-06-24] MEDS ORDERED: FING0.5C3 PO (08:43)
--- NOTE | 2019-06-24 08:46 | RAD ---
CHEST AP ONLY Clinical Indication: Mechanical ventilator Comparison: 06/23/2019 Portable Chest X-ray Exam. Findings: Portable semiupright frontal view of the chest was obtained. Enteric and tracheal tubes are in place. The cardiomediastinal silhouette is normal. Lungs are clear. There is no pneumothorax. No pleural effusion is appreciated. No acute bone abnormality. IMPRESSION: No acute cardiopulmonary process. Electronically signed by: Shawn Lopes MD (06/24/2019 8:43 AM) [facility]
--- NOTE | 2019-06-24 09:15 | NUR ---
IP: Pt is Influenza + requiring droplet precautions for 7 days and 24 hours without a fever, whichever is longest.
[2019-06-24] MEDS: levETIRAcetam 750 MG in IV DEXTROSE 5% 100ML 100 ML IV SCH ×2 (10:20→20:54)
[2019-06-24] MEDS: OSELTAMIVIR 30 MG/5 ML ORAL.SUSP. PEG SCH ×2 (10:24→20:54)
[2019-06-24] MEDS: CHLORHEXIDINE 0.12% 15 ML MOUTHWASH. MM SCH ×2 (10:42→20:54)
[2019-06-24] MEDS: MULTIVITAMINS,THERAPEUTIC 5 ML ORAL LIQUID. NG SCH (10:42)
[2019-06-24 11:24] LABS: FIO2 ABG 50
--- NOTE | 2019-06-24 11:53 | PDOC ---
[employer] PROGRESS NOTE Chief Complaint Chief Complaint status epilepticus, MS exacerbation History of Present Illness History of Present Illness 06/24/2019 pt seen and examined family present at bedside, discussed pt care with them chart reviewed consulted with RN regarding pt care and treatment plan pt on ventilator AC 20/500/40% fiO2/ 5 peep pt currently on IC fluids reviewed imaging results with family and answered their questions Vitals/I&O Vitals/I&O: Vital Signs Date Time Temp Pulse Resp B/P (MAP) Pulse Ox O2 Delivery O2 Flow Rate FiO2 06/24/19 11:41 95 Ventilator 06/24/19 10:04 99.7 92 20 115/74 (88) 99.7 I & O 06/23/19 06/23/19 06/24/19 15:00 23:00 07:00 Intake Total 2110 ml 291 ml 255 ml Output Total 1350 ml 1210 ml Balance 2110 ml -1059 ml -955 ml Physical Exam General: moderate distress Abdomen: Normal bowel sounds, Soft, No tenderness, No hepatosplenomegaly, No masses Extremities: No clubbing, No cyanosis, No edema, Normal pulses, No tenderness/swelling Skin: No rashes, No breakdown, No significant lesion Labs Labs: Laboratory Tests Test 06/23/19 14:50 06/23/19 16:10 06/23/19 20:15 06/24/19 04:50 CSF Tube Number 3 CSF Volume 2.0 CSF Color Colorless CSF Clarity Clear CSF WBC 3 /cmm (Not Established) CSF RBC 1 /cmm (Not Established) CSF Glucose 80 mg/dL (37-70) CSF Total Protein 46.6 mg/dL (15.0-45.0) Lactic Acid Level 1.2 mmol/L (0.4-2.0) 1.1 mmol/L (0.4-2.0) HIV (1&2) Antibody Screen Nonreactive (Nonreactive) Influenza Type A Antigen Positive (NEGATIVE) Influenza Type B Antigen Negative (NEGATIVE) White Blood Count 8.4 x10^3/uL (4.0-11.0) Red Blood Count 4.52 x10^6/uL (4.30-5.70) Hemoglobin 13.5 g/dL (13.0-17.5) Hematocrit 39.1 % (39.0-53.0) Mean Corpuscular Volume 89 fL (79-100) Mean Corpuscular Hemoglobin 30 pg (25-35) Mean Corpuscular Hemoglobin Concent 35 g/dL (31-37) Red Cell Distribution Width 12.5 % (11.5-14.5) Platelet Count 220 x10^3/uL (140-400) Neutrophils (%) (Auto) 75 % (31-73) Lymphocytes (%) (Auto) 6 % (24-48) Monocytes (%) (Auto) 19 % (0-9) Eosinophils (%) (Auto) 0 % (0-3) Basophils (%) (Auto) 0 % (0-3) Neutrophils # (Auto) 6.3 x10^3/uL (1.8-7.7) Lymphocytes # (Auto) 0.5 x10^3/uL (1.0-4.8) Monocytes # (Auto) 1.6 x10^3/uL (0.0-1.1) Eosinophils # (Auto) 0.0 x10^3/uL (0.0-0.7) Basophils # (Auto) 0.0 x10^3/uL (0.0-0.2) Sodium Level 143 mmol/L (136-145) Potassium Level 3.7 mmol/L (3.5-5.1) Chloride Level 106 mmol/L (98-107) Carbon Dioxide Level 27 mmol/L (21-32) Anion Gap 10 (6-14) Blood Urea Nitrogen 13 mg/dL (8-26) Creatinine 0.7 mg/dL (0.7-1.3) Estimated GFR (Cockcroft-Gault) 135.3 Glucose Level 111 mg/dL (70-99) Calcium Level 8.4 mg/dL (8.5-10.1) Test 06/24/19 07:55 O2 Saturation 98 % (92-99) Arterial Blood pH 7.49 (7.35-7.45) Arterial Blood pCO2 at Patient Temp 31 mmHg (35-46) Arterial Blood pO2 at Patient Temp 115 mmHg (85-108) Arterial Blood HCO3 23 mmol/L (21-28) Arterial Blood Base Excess 1 mmol/L (-3-3) FiO2 50 Review of Systems Review of Systems: GI: no complaint of NV Skin: no erythema, urticaria or petechiae Assessment and Plan Assessmemt and Plan status epilepticus, MS exacerbation Plan ICU monitoring Obtain ABG Vent weaning DVT prophylaxis Seizure meds Trend labs Appreciated input from subspecialist Imaging as indicated per specialist Resume home meds Prognosis guarded but slowly improving He is still critically ill Total time 31 minutes Comment Review of Relevant I have reviewed the following items rosalina (where applicable) has been applied. Medications: Current Medications Medications (Trade) Dose Ordered Sig/Placido Route PRN Reason Start Time Stop Time Status Last Admin Dose Admin Chlorhexidine Gluconate (Peridex) 15 ml BID MM 06/23/19 21:00 06/24/19 10:42 Levetiracetam 1000 mg/Dextrose 110 ml @ 440 mls/hr 1X ONCE IV 06/23/19 12:00 06/23/19 12:14 DC 06/23/19 12:19 Lorazepam (Ativan Inj) 4 mg 1X ONCE IVP 06/23/19 12:00 06/23/19 12:01 DC 06/23/19 11:59 Lidocaine HCl (Lidocaine 1% 20ml Vial) 20 ml 1X ONCE INJ 06/23/19 12:30 06/23/19 12:31 DC 06/23/19 15:00 Sodium Chloride 1,000 ml @ 1,000 mls/hr 1X ONCE IV 06/23/19 12:30 06/23/19 13:29 DC 06/23/19 13:24 Midazolam HCl (Versed) 5 mg 1X ONCE IV 06/23/19 13:15 06/23/19 13:16 DC 06/23/19 10:43 Midazolam HCl (Versed) 5 mg 1X ONCE IV 06/23/19 13:15 06/23/19 13:16 DC 06/23/19 10:49 Rocuronium [place] (Zemuron) 50 mg 1X ONCE IV 06/23/19 13:15 06/23/19 13:16 DC 06/23/19 10:50 Lorazepam (Ativan Inj) 2 mg PRN Q1HR PRN IVP TREMORS 06/23/19 13:30 06/23/19 13:19 Lorazepam (Ativan Inj) 4 mg 1X ONCE IVP 06/23/19 14:30 06/23/19 14:31 DC 06/23/19 14:22 Lorazepam 40 mg/ Sodium Chloride 270 ml @ 0 mls/hr CONT PRN IV SEE PROTOCOL 06/23/19 14:30 06/23/19 15:02 Ceftriaxone Sodium (Rocephin) 2 gm 1X ONCE IVP 06/23/19 14:30 06/23/19 14:31 DC 06/23/19 15:16 Vancomycin HCl 2 gm/Sodium Chloride 500 ml @ 250 mls/hr 1X ONCE IV 06/23/19 14:30 06/23/19 16:29 DC 06/23/19 17:27 Dexamethasone Sodium Phosphate (Decadron) 10 mg 1X ONCE IVP 06/23/19 14:30 06/23/19 14:31 DC 06/23/19 15:18 Acyclovir Sodium 800 mg/Dextrose 266 ml @ 266 mls/hr 1X ONCE IV 06/23/19 14:45 06/23/19 15:44 DC 06/23/19 15:18 Levetiracetam 750 mg/Dextrose 107.5 ml @ 420 mls/hr Q12HR IV 06/23/19 21:00 06/24/19 10:20 Gadoterate Meglumine (Dotarem) 10 ml 1X ONCE IVP 06/23/19 17:45 06/23/19 17:47 DC 06/23/19 18:50 Gadoterate Meglumine (Dotarem) 10 ml 1X ONCE IVP 06/23/19 17:45 06/23/19 17:47 DC 06/23/19 18:50 Acyclovir Sodium 800 mg/Dextrose 266 ml @ 266 mls/hr Q8H IV 06/23/19 23:00 06/24/19 10:26 Vancomycin HCl (Vanco Per Pharmacy) 1 each PRN DAILY PRN MC SEE COMMENTS 06/23/19 20:30 06/24/19 01:17 Vancomycin HCl 1.5 gm/Sodium Chloride 500 ml @ 250 mls/hr Q8H IV 06/24/19 01:00 06/24/19 10:42 Oseltamivir Phosphate (Tamiflu Suspension) 75 mg BID PEG 06/23/19 22:00 06/28/19 21:59 06/24/19 10:24 Multivitamins/ Minerals Therapeutic (Centrum Multivit-Mineral Liq) 5 ml DAILY NG 06/24/19 09:00 06/24/19 10:42 CASTDEREKNIAL K III DO Jun 24, 2019 11:53
[2019-06-24] MEDS ORDERED: cefTRIAXone IV Push 2 GM VIAL. IVP SCH (14:00)
--- NOTE | 2019-06-24 14:13 | NUR ---
Patient currently off blood pressure frequent monitoring due to increased irritability with cuff squeezing hourly. Patient calm at this time after cuff stopped and medication took effect.
--- NOTE | 2019-06-24 14:15 | NUR ---
SS following for discharge planning. SS reviewed pt chart. Pt is from home and is currently on the vent. SS will continue to follow for discharge planning.
--- NOTE | 2019-06-24 14:48 | PDOC ---
PROGRESS NOTES Assessment Assessment Status epilepticus. Seizure x 1 a year ago. Fever. Influenza A. Respiratory failure. Metabolic encephalopathy. Lactic acidosis. Leukocytosis. MS. Genital wards likely. Obesity. RECOMMENDATIONS/PLAN: Life support in ICU. Ativan IV PRN. On versed drop. Continue Keppra 750 mg IV q12h. Treat medical diseases. EEG. Discussed with his parents and partner at bedside in ICU on 06/25/19. HCT performed no SAH, ICH or other acute findings. LP performed. Brain MRI w/wo contrast no acute findings. HISTORY OF THE PRESENT ILLNESS: This is a 29-year-old male patient with history of MS and seizure. He was brought to the ER of [facility] on 06/23/19 due to persistent seizures. He was reportedly to have a seizure about 1 year ago that was severe enough to be taken to [facility]. According to his parents and partner he was placed on a unknown seizure medication following last episode. This medication was [facility]. Prior to this evening he had been dealing with gastroenteritis-like symptoms with nausea and vomiting. His partner said that he was very lethargic this morning and his partner had to dress him. They were on the way to an urgent care when patient's right arm stiffened and he was unable to move it. They were in the middle of it going down the stairs. His partner stated that he carried the patient down the stairs. The patient then began seizing. He and his partner both fell to the ground. His partner was unsure about any head trauma. His partner placed him on his side and immediately dialed 911 and his parents. In route to the hospital via EMT he received 10 mg of Versed was given. He was still seizing in the ER of [facility] and eventually stopped by Ativan and Versed. 06/23/19: On vent unresponsive. Seizures controlled. PAST MEDICAL HISTORY: Seizure MS PAST SURGERY HISTORY: No major surgery recently. ALLERGY: Unknown MEDICATIONS: Refer to [facility] FAMILY HISTORY: Non contributory. SOCIAL HISTORY: Lives with his partner. Denies smoking. He drinks alcohol occasionally. He uses/abuses marijuana. REVIEW OF SYSTEMS: Constitutional: No malnutrition, weight loss, cachexia. Head: No traumatic brain or head injury. Skin: No edema, or rash. Ear: No infection. Eyes: No vision loss or color blindness. Nose: No bleeding or purulent discharges. Hearing: No hearing decrease. Neck: No injury. Cardiac: No ME, arrhythmia,claudication. Pulmonary: Pneumonia. GI: No GI ulcer, GI bleeding. Urinary/genital: UTI. Endocrinologic: Diabetes Mellitus. Skeletomuscular: No muscular atrophy, deformity. Neurological: Seizure, MS. Psychiatric: Marijuana use/abuse. Otherwise, not [id number] review of systems. PHYSICAL EXAMINATION: General appearance is in acute distress. HEENT: Normocephalic and nontraumatic. Eyes, nose, ears, and throat are unremarkable. Neck is supple. No crepitus. Cardiovascular: S1, S2, regular rate and rhythm. Pulmonary: On vent. Abdomen: Bowel sounds are positive. Extremities: No rash, lesions, or edema. No restriction of range of motion NEUROLOGICAL EXAMINATION: On vent. Unresponsiveness. Postural episodes not noted on 06/23/19. Not oriented to time, place and person. Pupils 1.5 mm reactive to light stimuli. EOMI not elicited. CN: no focal findings elicited. Muscle tone: Decreased.. Muscle strength: No movements to pain stimuli. DTR: 1 Plantar reflex: Neutral response bilaterally Gait: not able to walk. Sensory exam: No response to stimuli. Not able to access cerebellar signs. F-T-N test not performed due to unresponsiveness. Objective Objective Vital Signs Date Time Temp Pulse Resp B/P (MAP) Pulse Ox O2 Delivery O2 Flow Rate FiO2 06/24/19 14:06 97 20 142/78 (99) 100 Ventilator 06/24/19 12:00 100.4 100.4 Intake and Output 06/24/19 07:00 Intake Total 2656 ml Output Total 2560 ml Balance 96 ml Intake Oral 0 ml IV Total 2656 ml Output Urine Total 2560 ml Vitals Signs Vitals VS - Last 72 Hours, by Label Date Time Temp Pulse Resp B/P (MAP) Pulse Ox O2 Delivery O2 Flow Rate FiO2 06/24/19 14:06 97 20 142/78 (99) 100 Ventilator 06/24/19 13:00 103 24 150/84 (106) 97 Ventilator 06/24/19 12:00 100.4 100 23 148/88 (108) 100 Ventilator 100.4 06/24/19 12:00 Mechanical Ventilator 06/24/19 11:41 95 Ventilator 06/24/19 11:00 84 20 143/85 (104) 100 Ventilator 06/24/19 10:04 99.7 92 20 115/74 (88) 100 Ventilator 99.7 06/24/19 09:31 99 Ventilator 2 09:00 88 20 109/60 (76) 94 Ventilator 06/24/19 08:00 Mechanical Ventilator 06/24/19 08:00 93 20 135/79 (97) 93 Ventilator 06/24/19 07:50 99 Ventilator 06/24/19 07:00 101.2 89 20 137/84 (101) 99 Ventilator 101.2 06/24/19 06:00 92 18 138/83 (101) 97 Ventilator 06/24/19 05:00 98 Ventilator 06/24/19 05:00 89 20 137/78 (97) 97 Ventilator 06/24/19 04:00 Mechanical Ventilator 06/24/19 04:00 98.1 88 18 137/76 (96) 98 Ventilator 98.1 06/24/19 03:00 88 20 108/49 (68) 97 Ventilator 06/24/19 02:35 98 Ventilator 06/24/19 02:18 94 20 128/75 (92) 97 Ventilator 06/24/19 02:00 94 20 128/75 (92) 97 Ventilator 06/24/19 01:00 94 20 135/80 (98) 98 Ventilator 2 23:59 99.6 92 20 142/86 (104) 99 Ventilator 99.6 06/23/19 23:59 Mechanical Ventilator 220 23:00 91 16 153/89 (110) 98 Ventilator 220 22:49 99 Ventilator 21820 22:00 92 18 155/89 (111) 98 Ventilator 218/20 21:00 93 18 139/85 (103) 96 Ventilator 2/18/20 20:30 92 18 145/86 (105) 98 Ventilator 218/20 20:03 98 Ventilator 218/20 20:00 Mechanical Ventilator 218/20 20:00 92 18 148/87 (107) 99 Ventilator 2/18/20 19:45 92 18 155/89 (111) 98 Ventilator 2/18/20 19:30 92 18 143/84 (103) 96 Ventilator 21820 19:15 92 18 155/89 (111) 98 Ventilator 06/23/19 19:00 98.1 90 20 142/78 (99) 98 Ventilator 98.1 06/23/19 17:32 90 20 97 06/23/19 17:02 98 20 98 06/23/19 16:32 102 20 98 06/23/19 16:30 97 Ventilator 06/23/19 16:01 96 20 96 06/23/19 15:32 92 20 95 06/23/19 15:02 86 20 94 06/23/19 14:32 83 20 99 06/23/19 14:02 87 20 94 06/23/19 13:32 88 20 94 06/23/19 13:02 99 20 96 06/23/19 13:00 Ventilator 06/23/19 12:21 96 20 96 06/23/19 12:01 96 20 96 06/23/19 11:40 107 20 99 06/23/19 11:25 107 20 99 06/23/19 11:15 110 20 99 06/23/19 11:00 126 24 99 06/23/19 11:00 Ventilator 06/23/19 10:55 130 34 99 06/23/19 10:39 98.2 131 34 202/106 (138) 88 NonRebreather Mask 98.2 Laboratory Laboratory Laboratory Tests Test 06/23/19 14:50 06/23/19 16:10 06/23/19 20:15 06/24/19 04:50 CSF Tube Number 3 CSF Volume 2.0 CSF Color Colorless CSF Clarity Clear CSF WBC 3 /cmm (Not Established) CSF RBC 1 /cmm (Not Established) CSF Glucose 80 mg/dL (37-70) CSF Total Protein 46.6 mg/dL (15.0-45.0) Lactic Acid Level 1.2 mmol/L (0.4-2.0) 1.1 mmol/L (0.4-2.0) HIV (1&2) Antibody Screen Nonreactive (Nonreactive) Influenza Type A Antigen Positive (NEGATIVE) Influenza Type B Antigen Negative (NEGATIVE) White Blood Count 8.4 x10^3/uL (4.0-11.0) Red Blood Count 4.52 x10^6/uL (4.30-5.70) Hemoglobin 13.5 g/dL (13.0-17.5) Hematocrit 39.1 % (39.0-53.0) Mean Corpuscular Volume 89 fL (79-100) Mean Corpuscular Hemoglobin 30 pg (25-35) Mean Corpuscular Hemoglobin Concent 35 g/dL (31-37) Red Cell Distribution Width 12.5 % (11.5-14.5) Platelet Count 220 x10^3/uL (140-400) Neutrophils (%) (Auto) 75 % (31-73) Lymphocytes (%) (Auto) 6 % (24-48) Monocytes (%) (Auto) 19 % (0-9) Eosinophils (%) (Auto) 0 % (0-3) Basophils (%) (Auto) 0 % (0-3) Neutrophils # (Auto) 6.3 x10^3/uL (1.8-7.7) Lymphocytes # (Auto) 0.5 x10^3/uL (1.0-4.8) Monocytes # (Auto) 1.6 x10^3/uL (0.0-1.1) Eosinophils # (Auto) 0.0 x10^3/uL (0.0-0.7) Basophils # (Auto) 0.0 x10^3/uL (0.0-0.2) Sodium Level 143 mmol/L (136-145) Potassium Level 3.7 mmol/L (3.5-5.1) Chloride Level 106 mmol/L (98-107) Carbon Dioxide Level 27 mmol/L (21-32) Anion Gap 10 (6-14) Blood Urea Nitrogen 13 mg/dL (8-26) Creatinine 0.7 mg/dL (0.7-1.3) Estimated GFR (Cockcroft-Gault) 135.3 Glucose Level 111 mg/dL (70-99) Calcium Level 8.4 mg/dL (8.5-10.1) Test 06/24/19 07:55 O2 Saturation 98 % (92-99) Arterial Blood pH 7.49 (7.35-7.45) Arterial Blood pCO2 at Patient Temp 31 mmHg (35-46) Arterial Blood pO2 at Patient Temp 115 mmHg (85-108) Arterial Blood HCO3 23 mmol/L (21-28) Arterial Blood Base Excess 1 mmol/L (-3-3) FiO2 50 Microbiology 06/23/19 CSF Gram Stain - Final, Complete 06/23/19 Blood Culture - Preliminary, Resulted NO GROWTH AFTER 1 DAY Medication Medications Current Medications Acetaminophen (Tylenol) 650 mg PRN Q6HRS PRN NG MILD PAIN / TEMP; Start 06/24/19 at 08:00 Acyclovir Sodium 800 mg/Dextrose 266 ml @ 266 mls/hr 1X ONCE IV Last administered on 06/23/19at 15:18; Start 06/23/19 at 14:45; Stop 06/23/19 at 15:44; Status DC Acyclovir Sodium 800 mg/Dextrose 266 ml @ 266 mls/hr Q8H IV Last administered on 06/24/19at 10:26; Start 06/23/19 at 23:00 Ceftriaxone Sodium (Rocephin) 2 gm Q24H IVP Last administered on 06/24/19at 13:40; Start 06/24/19 at 14:00 Chlorhexidine Gluconate (Peridex) 15 ml BID MM Last administered on 06/24/19at 10:42; Start 06/23/19 at 21:00 Fentanyl Citrate (Fentanyl 2ml Vial) 50 mcg PRN Q1HR PRN IV PAIN; Start 06/23/19 at 15:45; Stop 06/24/19 at 15:44 Gadoterate Meglumine (Dotarem) 10 ml 1X ONCE IVP Last administered on 06/23/19at 18:50; Start 06/23/19 at 17:45; Stop 06/23/19 at 17:47; Status DC Gadoterate Meglumine (Dotarem) 10 ml 1X ONCE IVP Last administered on 06/23/19at 18:50; Start 06/23/19 at 17:45; Stop 06/23/19 at 17:47; Status DC Levetiracetam 750 mg/Dextrose 107.5 ml @ 420 mls/hr Q12HR IV ; Start 06/23/19 at 17:00; Status Cancel Levetiracetam 750 mg/Dextrose 107.5 ml @ 420 mls/hr Q12HR IV Last administered on 06/24/19at 10:20; Start 06/23/19 at 21:00 Lorazepam (Ativan Inj) 2 mg 1X ONCE IVP ; Start 06/23/19 at 17:00; Stop 06/23/19 at 17:01; Status DC Multivitamins/ Minerals Therapeutic (Centrum Multivit-Mineral Liq) 5 ml DAILY NG Last administered on 06/24/19at 10:42; Start 06/24/19 at 09:00 Ondansetron HCl (Zofran) 4 mg PRN Q4HRS PRN IV NAUSEA/VOMITING; Start 06/23/19 at 20:00 Ondansetron HCl (Zofran) 4 mg PRN Q8HRS PRN IV NAUSEA/VOMITING; Start 06/23/19 at 15:45; Stop 06/23/19 at 19:58; Status DC Oseltamivir Phosphate (Tamiflu Suspension) 75 mg BID PEG Last administered on 06/24/19at 10:24; Start 06/23/19 at 22:00; Stop 06/28/19 at 21:59 Propofol 50 ml @ As Directed STK-MED ONCE IV ; Start 06/23/19 at 16:02; Stop 06/23/19 at 16:02; Status DC Propofol 50 ml @ As Directed STK-MED ONCE IV ; Start 06/23/19 at 17:35; Stop 06/23/19 at 17:35; Status DC Sodium Chloride 1,000 ml @ 125 mls/hr 1X ONCE IV ; Start 06/23/19 at 15:45; Stop 06/23/19 at 23:44; Status DC Vancomycin HCl (Vanco Per Pharmacy) 1 each PRN DAILY PRN MC SEE COMMENTS Last administered on 06/24/19at 01:17; Start 06/23/19 at 20:30 Vancomycin HCl (Vancomycin Trough Level) 1 each 1X ONCE MC ; Start 06/24/19 at 16:30; Stop 06/24/19 at 16:31 Vancomycin HCl 1.5 gm/Sodium Chloride 500 ml @ 250 mls/hr Q8H IV Last admini stered on 06/24/19at 10:42; Start 06/24/19 at 01:00 Comment Review of Relevant I have reviewed the following items rosalina (where applicable) has been applied. RADHA WORRELL MD Jun 24, 2019 14:48
[2019-06-24 17:20] LABS: VANC TR 10.8 mcg/mL (10.0-20.0)
--- NOTE | 2019-06-24 17:56 | NUR ---
Pharmacy Vancomycin Dosing Note S:Consulted to monitor and dose vancomycin started 06/23/19. O:FLORES VASQUES is a 29 year old M with Meningitis . Height: 5 feet, 11 inches Weight: 104.465976 kg Dixon Body Weight: 75.30 Adjusted Body Weight: 86.78 Dosing Weight: Actual Other Antibiotics: CEFTRIAXONE 2GM LABS: Last BUN: 19 Last Creatinine: 1.1 Creatinine Clearance: 127 mL/min Last WBC: 14.2 Last Procalcitonin: Tmax (past 24 hours): Microbiology: I/O: Drug Levels: Last Trough level: 10.8 on 06/25/19 at 1730 Last dose given 06/23/19 at 1700 Vancomycin Dosing: Loading Dose: 2000 mg x1 Dosing Weight: Actual Target Trough: 15-20 A: Based on: SUBTHERAPEUTIC TROUGH, P: 1. NEW REGIMEN Vancomycin 2000 mg IV q8h 2. Follow up Trough level on 06/25/19 at 1730 3. Pharmacy will continue to monitor, follow and adjust therapy as needed. MK SABA ROPER [facility], 06/24/19 [id number]
[2019-06-24] MEDS: ACETAMINOPHEN 650 MG/20.3 ML SOLUTION. NG PRN (18:27)
[2019-06-24] MEDS: VANCOMYCIN 2 GM in IV NORMAL SALINE 500ML BAG 500 ML IV SCH (18:43)
[2019-06-24] MEDS: ENOXAPARIN 40 MG/0.4 ML SYRINGE. SQ SCH (20:55)
[2019-06-25] VITALS (25 sets, daily range): BP systolic 109–160; BP diastolic 0–105
[2019-06-25] MEDS: PROPOFOL 100 ML IV PRN ×3 (01:01→07:19)
[2019-06-25] MEDS: VANCOMYCIN 2 GM in IV NORMAL SALINE 500ML BAG 500 ML IV SCH ×2 (01:39→09:35)
--- NOTE | 2019-06-25 02:33 | CONS ---
DATE OF CONSULTATION: 06/24/2019 ATTENDING PHYSICIAN: David Hairston MD REASON FOR CONSULTATION: The patient seen in pulmonary consultation at the request of Dr. Hairston for vent management. HISTORY OF PRESENT ILLNESS: The patient is a 29-year-old with a history of MS and seizures who was brought to the Emergency Room due to persistent seizures. Apparently, he has had some seizures in the past, the last time he had this particular episode was last year in [place]. The patient was intubated and he currently remains intubated. He has been off of sedation since this morning. He has had a complete workup by Neurology. He is currently on Ativan p.r.n., Keppra. He underwent imaging studies including an MRI of the brain, which revealed no abnormal intracranial enhancement. Mucosa was thickened. The patient also had a LP, which revealed no organisms on Gram stain. Blood cultures to date are negative. He underwent serology for influenza, which was positive for influenza A. HIV antibody screen was nonreactive. Toxicology screen was positive for cannabinoid. Alcohol level was negative. Electrolytes were noted. Arterial blood gas this morning, pH of 7.49, PaCO2 of 31, PaO2 115. White count was elevated, but came back down. I reviewed his medication. He is currently on acyclovir, ceftriaxone and multiple other medications. PAST MEDICAL HISTORY: Remarkable for seizures and MS. PAST SURGICAL HISTORY: None. FAMILY HISTORY: Depression. SOCIAL HISTORY: He occasionally uses marijuana. REVIEW OF SYSTEMS: Unobtainable secondary to the patient's condition. ALLERGIES: No known drug allergies. PHYSICAL EXAMINATION: GENERAL: The patient was off sedation, but did not respond to verbal or tactile stimuli. HEENT: Eyes, the sclerae were nonicteric. NECK: Jugular venous distention was not elevated. No lymphadenopathy. CHEST: Full expansion. LUNGS: Scattered rhonchi, no wheezes. CARDIOVASCULAR: Regular rate and rhythm with S1, S2, no S3. ABDOMEN: Soft, nontender, nondistended. EXTREMITIES: No clubbing, cyanosis or edema. NEUROLOGIC: The patient had not been sedated since early this morning, he has a strong cough and gag reflex. DIAGNOSTIC STUDIES: Chest x-ray reviewed. No acute cardiopulmonary process. IMPRESSION: 1. Acute respiratory failure secondary to status epilepticus. 2. Status epilepticus. 3. Metabolic encephalopathy. 4. Lactic acidosis secondary to seizures and increased work of breathing. 5. ER fever. 6. Leukocytosis. 7. Positive influenza screen. 8. Status post LP with no organisms seen on Gram stain. PLAN: 1. We will continue off sedation. 2. As soon as the patient awakens and follows commands, we will extubate. 3. Continue empiric antibiotic per PCP. The patient is currently on acyclovir, Rocephin and vancomycin. 4. Follow LP results. 5. Decrease minute ventilation to normalize pH. The above was discussed with the father who was at the bedside. I do appreciate the privilege in sharing in the patient's care. Total cumulative critical care time of 50 minutes. CHAPARRO ROMAN MD DR: CHELSEA/alfred JOB#: [id number] / [id number]
[2019-06-25] MEDS: ACYCLOVIR SODIUM 800 MG in IV DEXTROSE 5% 250 ML IV SCH ×3 (06:24→22:50)
[2019-06-25 07:59] LABS: BASE EXCESS ABG 3 mmol/L (-3-3); HCO3 ABG 26 mmol/L (21-28); PCO2 ABG 37 mmHg (35-46); PO2 ABG 96 mmHg (85-108); SAT O2 ABG 97 % (92-99)
[2019-06-25] MEDS: OSELTAMIVIR 30 MG/5 ML ORAL.SUSP. PEG SCH ×2 (09:35→22:09)
[2019-06-25] MEDS: MULTIVITAMINS,THERAPEUTIC 5 ML ORAL LIQUID. NG SCH (09:35)
[2019-06-25] MEDS: levETIRAcetam 750 MG in IV DEXTROSE 5% 100ML 100 ML IV SCH ×2 (09:35→22:18)
[2019-06-25] MEDS: CHLORHEXIDINE 0.12% 15 ML MOUTHWASH. MM SCH ×2 (09:35→21:00)
[2019-06-25 09:48] LABS: CALCIUM 8.2 mg/dL (8.5-10.1); CREATININE 0.6 mg/dL (0.7-1.3); GFR 161.6; POTASSIUM 3.5 mmol/L (3.5-5.1)
--- NOTE | 2019-06-25 10:39 | PDOC ---
PULMONARY PROGRESS NOTES Subjective OFF PROPOFOL NOT FULLY AWAKE Vitals Vital Signs Date Time Temp Pulse Resp B/P (MAP) Pulse Ox O2 Delivery O2 Flow Rate FiO2 06/25/19 08:58 98 Ventilator 06/25/19 06:05 99.1 90 16 134/75 (94) 99.1 Lungs: Clear Cardiovascular: S1 Abdomen: Soft Extremities: No Edema Skin: Warm Labs Laboratory Tests Test 06/23/19 10:43 06/23/19 10:44 06/23/19 10:58 06/23/19 11:40 Glucose (Fingerstick) 154 mg/dL (70-99) White Blood Count 14.2 x10^3/uL (4.0-11.0) Red Blood Count 5.22 x10^6/uL (4.30-5.70) Hemoglobin 15.9 g/dL (13.0-17.5) Hematocrit 48.4 % (39.0-53.0) Mean Corpuscular Volume 93 fL (79-100) Mean Corpuscular Hemoglobin 30 pg (25-35) Mean Corpuscular Hemoglobin Concent 33 g/dL (31-37) Red Cell Distribution Width 12.8 % (11.5-14.5) Platelet Count 352 x10^3/uL (140-400) Neutrophils (%) (Auto) 59 % (31-73) Lymphocytes (%) (Auto) 19 % (24-48) Monocytes (%) (Auto) 22 % (0-9) Eosinophils (%) (Auto) 0 % (0-3) Basophils (%) (Auto) 0 % (0-3) Neutrophils # (Auto) 8.3 x10^3/uL (1.8-7.7) Lymphocytes # (Auto) 2.7 x10^3/uL (1.0-4.8) Monocytes # (Auto) 3.1 x10^3/uL (0.0-1.1) Eosinophils # (Auto) 0.0 x10^3/uL (0.0-0.7) Basophils # (Auto) 0.0 x10^3/uL (0.0-0.2) Segmented Neutrophils % 38 % (35-66) Band Neutrophils % 13 % (0-9) Lymphocytes % 24 % (24-48) Monocytes % 25 % (0-10) Platelet Estimate Adequate (ADEQUATE) Prothrombin Time 14.6 SEC (11.7-14.0) Prothromb Time International Ratio 1.2 (0.8-1.1) Activated Partial Thromboplast Time 33 SEC (24-38) Sodium Level 145 mmol/L (136-145) Potassium Level 4.8 mmol/L (3.5-5.1) Chloride Level 102 mmol/L (98-107) Carbon Dioxide Level 22 mmol/L (21-32) Anion Gap 21 (6-14) Blood Urea Nitrogen 19 mg/dL (8-26) Creatinine 1.1 mg/dL (0.7-1.3) Estimated GFR (Cockcroft-Gault) 80.3 BUN/Creatinine Ratio 17 (6-20) Glucose Level 174 mg/dL (70-99) Lactic Acid Level 14.2 mmol/L (0.4-2.0) Calcium Level 10.0 mg/dL (8.5-10.1) Magnesium Level 2.6 mg/dL (1.8-2.4) Total Bilirubin 0.4 mg/dL (0.2-1.0) Aspartate Amino Transf (AST/SGOT) 16 U/L (15-37) Alanine Aminotransferase (ALT/SGPT) 27 U/L (16-63) Alkaline Phosphatase 60 U/L (46-116) Creatine Kinase 83 U/L (39-308) Total Protein 8.0 g/dL (6.4-8.2) Albumin 4.6 g/dL (3.4-5.0) Albumin/Globulin Ratio 1.4 (1.0-1.7) Ethyl Alcohol Level < 10 mg/dL (0-10) O2 Saturation 99 % (92-99) Arterial Blood pH 7.24 (7.35-7.45) Arterial Blood pCO2 at Patient Temp 48 mmHg (35-46) Arterial Blood pO2 at Patient Temp 215 mmHg (85-108) Arterial Blood HCO3 20 mmol/L (21-28) Arterial Blood Base Excess -7 mmol/L (-3-3) Oxyhemoglobin 97.8 % Methemoglobin 0.6 % (0.0-1.9) Carbon Monoxide, Quantitative 0.3 % (0.0-1.9) FiO2 Vent 100% Urine Collection Type U cath Urine Color Sara Urine Clarity Clear Urine pH 5.5 Urine Specific [place] 1.025 Urine Protein 100 mg/dL (NEG-TRACE) Urine Glucose (UA) Negative mg/dL (NEG) Urine Ketones (Stick) 15 mg/dL (NEG) Urine Blood Negative (NEG) Urine Nitrite Negative (NEG) Urine Bilirubin Negative (NEG) Urine Urobilinogen Dipstick 1.0 mg/dL (0.2 mg/dL) Urine Leukocyte Esterase Negative (NEG) Urine RBC 0 /HPF (0-2) Urine WBC 5-10 /HPF (0-4) Urine Bacteria Moderate /HPF (0-FEW) Urine Mucus Marked /LPF Urine Opiates Screen Neg (NEG) Urine Methadone Screen Neg (NEG) Urine Barbiturates Neg (NEG) Urine Phencyclidine Screen Neg (NEG) Urine Amphetamine/Methamphetamine Neg (NEG) Urine Benzodiazepines Screen Pos (NEG) Urine Cocaine Screen Neg (NEG) Urine Cannabinoids Screen Pos (NEG) Urine Ethyl Alcohol Neg (NEG) Test 06/23/19 14:50 06/23/19 16:10 06/23/19 20:15 06/24/19 04:50 CSF Tube Number 3 CSF Volume 2.0 CSF Color Colorless CSF Clarity Clear CSF WBC 3 /cmm (Not Established) CSF RBC 1 /cmm (Not Established) CSF Glucose 80 mg/dL (37-70) CSF Total Protein 46.6 mg/dL (15.0-45.0) Lactic Acid Level 1.2 mmol/L (0.4-2.0) 1.1 mmol/L (0.4-2.0) Aileen-Plata Virus Capsid Ag IgG Ab 397.0 U/mL (0.0-17.9) Aileen-Plata Virus Capsid Ag IgM Ab <36.0 U/mL (0.0-35.9) Aileen-Plata Nuc Assoc Ag IgG Index 357.0 U/mL (0.0-17.9) Aileen-Plata Virus Interpretation Comment (.) HIV (1&2) Antibody Screen Nonreactive (Nonreactive) Influenza Type A Antigen Positive (NEGATIVE) Influenza Type B Antigen Negative (NEGATIVE) White Blood Count 8.4 x10^3/uL (4.0-11.0) Red Blood Count 4.52 x10^6/uL (4.30-5.70) Hemoglobin 13.5 g/dL (13.0-17.5) Hematocrit 39.1 % (39.0-53.0) Mean Corpuscular Volume 89 fL (79-100) Mean Corpuscular Hemoglobin 30 pg (25-35) Mean Corpuscular Hemoglobin Concent 35 g/dL (31-37) Red Cell Distribution Width 12.5 % (11.5-14.5) Platelet Count 220 x10^3/uL (140-400) Neutrophils (%) (Auto) 75 % (31-73) Lymphocytes (%) (Auto) 6 % (24-48) Monocytes (%) (Auto) 19 % (0-9) Eosinophils (%) (Auto) 0 % (0-3) Basophils (%) (Auto) 0 % (0-3) Neutrophils # (Auto) 6.3 x10^3/uL (1.8-7.7) Lymphocytes # (Auto) 0.5 x10^3/uL (1.0-4.8) Monocytes # (Auto) 1.6 x10^3/uL (0.0-1.1) Eosinophils # (Auto) 0.0 x10^3/uL (0.0-0.7) Basophils # (Auto) 0.0 x10^3/uL (0.0-0.2) Sodium Level 143 mmol/L (136-145) Potassium Level 3.7 mmol/L (3.5-5.1) Chloride Level 106 mmol/L (98-107) Carbon Dioxide Level 27 mmol/L (21-32) Anion Gap 10 (6-14) Blood Urea Nitrogen 13 mg/dL (8-26) Creatinine 0.7 mg/dL (0.7-1.3) Estimated GFR (Cockcroft-Gault) 135.3 Glucose Level 111 mg/dL (70-99) Calcium Level 8.4 mg/dL (8.5-10.1) Test 06/24/19 07:55 06/24/19 16:35 06/25/19 08:00 06/25/19 08:40 O2 Saturation 98 % (92-99) 97 % (92-99) Arterial Blood pH 7.49 (7.35-7.45) 7.47 (7.35-7.45) Arterial Blood pCO2 at Patient Temp 31 mmHg (35-46) 37 mmHg (35-46) Arterial Blood pO2 at Patient Temp 115 mmHg (85-108) 96 mmHg (85-108) Arterial Blood HCO3 23 mmol/L (21-28) 26 mmol/L (21-28) Arterial Blood Base Excess 1 mmol/L (-3-3) 3 mmol/L (-3-3) FiO2 50 Vancomycin Level Trough 10.8 mcg/mL (10.0-20.0) Vancomycin Last Dose Date Unk Vancomycin Last Dose Time Unk Sodium Level 140 mmol/L (136-145) Potassium Level 3.5 mmol/L (3.5-5.1) Chloride Level 105 mmol/L (98-107) Carbon Dioxide Level 28 mmol/L (21-32) Anion Gap 7 (6-14) Blood Urea Nitrogen 10 mg/dL (8-26) Creatinine 0.6 mg/dL (0.7-1.3) Estimated GFR (Cockcroft-Gault) 161.6 Glucose Level 110 mg/dL (70-99) Calcium Level 8.2 mg/dL (8.5-10.1) Laboratory Tests Test 06/24/19 16:35 06/25/19 08:00 06/25/19 08:40 Vancomycin Level Trough 10.8 mcg/mL (10.0-20.0) Vancomycin Last Dose Date Unk Vancomycin Last Dose Time Unk O2 Saturation 97 % (92-99) Arterial Blood pH 7.47 (7.35-7.45) Arterial Blood pCO2 at Patient Temp 37 mmHg (35-46) Arterial Blood pO2 at Patient Temp 96 mmHg (85-108) Arterial Blood HCO3 26 mmol/L (21-28) Arterial Blood Base Excess 3 mmol/L (-3-3) Sodium Level 140 mmol/L (136-145) Potassium Level 3.5 mmol/L (3.5-5.1) Chloride Level 105 mmol/L (98-107) Carbon Dioxide Level 28 mmol/L (21-32) Anion Gap 7 (6-14) Blood Urea Nitrogen 10 mg/dL (8-26) Creatinine 0.6 mg/dL (0.7-1.3) Estimated GFR (Cockcroft-Gault) 161.6 Glucose Level 110 mg/dL (70-99) Calcium Level 8.2 mg/dL (8.5-10.1) Medications Active Scripts Medications Dose Route/Sig Max Daily Dose Days Date Category Gilenya (Fingolimod Hcl) 0.5 Mg Capsule 0.5 Mg PO DAILY 06/24/19 Reported Vitamin D3 (Cholecalciferol (Vitamin D3)) 5,000 Unit Tab.rapdis 1 Tab PO DAILY 30 06/24/19 Reported Ginkgo Biloba Extract (Ginkgo Biloba Albia Extract) 60 Mg Capsule 60 Mg PO DAILY 06/24/19 Reported Divalproex Sodium 500 Mg Tablet.dr 500 Mg PO DAILY PRN 06/24/19 Reported Comments CXR 06/25 faint interstitial infiltrates Impression . 1. Acute respiratory failure secondary to status epilepticus. 2. Status epilepticus. 3. Metabolic encephalopathy. 4. Lactic acidosis secondary to seizures and increased work of breathing. 5. fever. 6. Leukocytosis. 7. Positive influenza screen. 8. Status post LP with no organisms seen on Gram stain. Plan . 1. off sedation. Not fully awake, likely post-ictal 2. As soon as the patient awakens and follows commands, we will extubate.vs CPAP trial 3. Continue empiric antibiotic per PCP. The patient is currently on acyclovir, Rocephin and vancomycin. 4. Follow LP results. 5. d/w RN/ father cct 30 min GUICHO SMALL MD Jun 25, 2019 10:39
[2019-06-25] MEDS: VANCOMYCIN PER PHARMACY MC PRN (10:52)
--- NOTE | 2019-06-25 11:58 | PDOC ---
[facility] [facility] PROGRESS NOTE Chief Complaint Chief Complaint status epilepticus MS exacerbation Influenza A (lab confirmed) History of Present Illness History of Present Illness 06/24/2019 pt seen and examined family present at bedside, discussed pt care with them chart reviewed consulted with RN regarding pt care and treatment plan pt on ventilator AC 20/500/40% fiO2/ 5 peep pt currently on IC fluids reviewed imaging results with family and answered their questions 06/25/2019 Patient was seen and examined in the ICU Discussed with his father Chart reviewed D/W RN and RT Patient is some what arousable Vitals/I&O Vitals/I&O: Vital Signs Date Time Temp Pulse Resp B/P (MAP) Pulse Ox O2 Delivery O2 Flow Rate FiO2 06/25/19 11:19 99 Ventilator 06/25/19 11:00 85 20 140/86 (104) 06/25/19 08:00 99.0 99.0 I & O 06/24/19 06/24/19 06/25/19 15:00 23:00 07:00 Intake Total 957.5 ml 1137.21 ml 1158 ml Output Total 295 ml 345 ml 675 ml Balance 662.5 ml 792.21 ml 483 ml Physical Exam General: Alert, moderate distress Lungs: Clear Abdomen: Normal bowel sounds, Soft, No tenderness, No hepatosplenomegaly, No masses Extremities: No clubbing, No cyanosis, No edema, Normal pulses, No tenderness/swelling Skin: No rashes, No breakdown, No significant lesion Labs Labs: Laboratory Tests Test 06/24/19 16:35 06/25/19 08:00 06/25/19 08:40 Vancomycin Level Trough 10.8 mcg/mL (10.0-20.0) Vancomycin Last Dose Date Unk Vancomycin Last Dose Time Unk O2 Saturation 97 % (92-99) Arterial Blood pH 7.47 (7.35-7.45) Arterial Blood pCO2 at Patient Temp 37 mmHg (35-46) Arterial Blood pO2 at Patient Temp 96 mmHg (85-108) Arterial Blood HCO3 26 mmol/L (21-28) Arterial Blood Base Excess 3 mmol/L (-3-3) Sodium Level 140 mmol/L (136-145) Potassium Level 3.5 mmol/L (3.5-5.1) Chloride Level 105 mmol/L (98-107) Carbon Dioxide Level 28 mmol/L (21-32) Anion Gap 7 (6-14) Blood Urea Nitrogen 10 mg/dL (8-26) Creatinine 0.6 mg/dL (0.7-1.3) Estimated GFR (Cockcroft-Gault) 161.6 Glucose Level 110 mg/dL (70-99) Calcium Level 8.2 mg/dL (8.5-10.1) Review of Systems Review of Systems: unable to obtained Assessment and Plan Assessmemt and Plan Assessment: status epilepticus MS exacerbation Influenza A (lab confirmed) Plan ICU monitoring Vent weaning Tamiflu Hold ABX Hope to extubate later today DVT prophylaxis Seizure meds ICU isolation Trend labs Appreciated input from subspecialist Resume home meds Prognosis guarded but slowly improving He is still critically ill Total time 31 minutes Comment Review of Relevant I have reviewed the following items rosalina (where applicable) has been applied. Medications: Current Medications Medications (Trade) Dose Ordered Sig/Placido Route PRN Reason Start Time Stop Time Status Last Admin Dose Admin Ceftriaxone Sodium (Rocephin) 2 gm Q24H IVP 06/24/19 14:00 06/25/19 11:42 DC 06/24/19 13:40 Enoxaparin Sodium (Lovenox 40mg Syringe) 40 mg Q24H SQ 06/24/19 21:00 06/24/19 20:55 Vancomycin HCl 2 gm/Sodium Chloride 500 ml @ 250 mls/hr Q8H IV 06/24/19 18:00 06/25/19 11:42 DC 06/25/19 09:35 MARCELLE AQUINO III DO Jun 25, 2019 11:58
--- NOTE | 2019-06-25 12:13 | RAD ---
CHEST AP ONLY Clinical Indication: Mechanical ventilation Comparison: 06/24/2019 view of the chest. Findings: Portable semiupright frontal view of the chest was obtained. Pedicle screws in place. Enteric tube is identified. The cardiomediastinal silhouette is normal. Lungs are clear. There is no pneumothorax. No pleural effusion is appreciated. No acute bone abnormality. IMPRESSION: No acute cardiopulmonary process. Electronically signed by: Shawn Lopes MD (06/25/2019 12:10 PM) [id number]
--- NOTE | 2019-06-25 14:13 | PDOC ---
PROGRESS NOTES Assessment Assessment Status epilepticus. Seizure x 1 a year ago. Influenza A. Respiratory failure. Metabolic encephalopathy. Fever Lactic acidosis. Leukocytosis. MS. Genital wards likely. Obesity. RECOMMENDATIONS/PLAN: Continue l abbey support in ICU at the present time. Continue Keppra decrease to 500 mg IV q12h, change to PO when can swallow. Treat medical diseases. Discussed with his father at bedside in ICU on 06/25/19. HCT performed no SAH, ICH or other acute findings. LP performed. Brain MRI w/wo contrast no acute findings. HISTORY OF THE PRESENT ILLNESS: This is a 29-year-old male patient with history of MS and seizure. He was brought to the ER of [facility] on 06/23/19 due to persistent seizures. He was reportedly to have a seizure about 1 year ago that was severe enough to be taken to [facility]. According to his parents and partner he was placed on a unknown seizure medication following last episode. This medication was stopped by his neurologist Perfecto Tuttle APRN at [facility] in December of 2018. Prior to this evening he had been dealing with gastroenteritis-like symptoms with nausea and vomiting. His partner said that he was very lethargic this morning and his partner had to dress him. They were on the way to an urgent care when patient's right arm stiffened and he was unable to move it. They were in the middle of it going down the stairs. His partner stated that he carried the patient down the stairs. The patient then began seizing. He and his partner both fell to the ground. His partner was unsure about any head trauma. His partner placed him on his side and immediately dialed 911 and his parents. In route to the hospital via EMT he received 10 mg of Versed was given. He was still seizing in the ER of [facility] and eventually stopped by Ativan and Versed. 06/24/19: On vent. No sedation. No seizures. PAST MEDICAL HISTORY: Seizure MS PAST SURGERY HISTORY: No major surgery recently. ALLERGY: Unknown MEDICATIONS: Refer to [facility] FAMILY HISTORY: Non contributory. SOCIAL HISTORY: Lives with his partner. Denies smoking. He drinks alcohol occasionally. He uses/abuses marijuana. REVIEW OF SYSTEMS: Constitutional: No malnutrition, weight loss, cachexia. Head: No traumatic brain or head injury. Skin: No edema, or rash. Ear: No infection. Eyes: No vision loss or color blindness. Nose: No bleeding or purulent discharges. Hearing: No hearing decrease. Neck: No injury. Cardiac: No VT, arrhythmia,claudication. Pulmonary: Pneumonia. GI: No GI ulcer, GI bleeding. Urinary/genital: UTI. Endocrinologic: Diabetes Mellitus. Skeletomuscular: No muscular atrophy, deformity. Neurological: Seizure, MS. Psychiatric: Marijuana use/abuse. Otherwise, not [id number] review of systems. PHYSICAL EXAMINATION: General appearance is in subacute distress. HEENT: Normocephalic and nontraumatic. Eyes, nose, ears, and throat are unremarkable. Neck is supple. No crepitus. Cardiovascular: S1, S2, regular rate and rhythm. Pulmonary: On vent. Abdomen: Bowel sounds are positive. Extremities: No rash, lesions, or edema. No restriction of range of motion NEUROLOGICAL EXAMINATION: On vent. Showed some response. Not oriented to time, place and person. Pupils 3 mm reactive to light stimuli. EOMI not elicited. CN: no focal findings elicited. Muscle tone: Decreased.. Muscle strength: movements noted to pain stimuli. DTR: 2 Plantar reflex: Neutral response bilaterally Gait: not able to walk. Sensory exam: Withdraw response to stimuli. Not able to access cerebellar signs. F-T-N test not performed due to not able to follow commands. Objective Objective Vital Signs Date Time Temp Pulse Resp B/P (MAP) Pulse Ox O2 Delivery O2 Flow Rate FiO2 06/25/19 13:43 99 Ventilator 06/25/19 13:00 92 20 140/76 (97) 06/25/19 12:00 98.9 98.9 Intake and Output 06/25/19 07:00 Intake Total 3252.71 ml Output Total 1315 ml Balance 1937.71 ml Intake Oral 0 ml IV Total 1637.71 ml Tube Feeding 1615 ml Output Urine Total 1315 ml Vitals Signs Vitals VS - Last 72 Hours, by Label Date Time Temp Pulse Resp B/P (MAP) Pulse Ox O2 Delivery O2 Flow Rate FiO2 06/25/19 13:43 99 Ventilator 06/25/19 13:00 92 20 140/76 (97) 98 Ventilator 06/25/19 12:00 98.9 78 20 139/84 (102) 96 Ventilator 98.9 06/25/19 12:00 Mechanical Ventilator 06/25/19 11:19 99 Ventilator 06/25/19 11:00 85 20 140/86 (104) 98 Ventilator 06/25/19 10:00 78 20 109/50 (69) 98 Ventilator 06/25/19 09:00 84 20 128/57 (80) 98 Ventilator 06/25/19 08:58 98 Ventilator 06/25/19 08:00 99.0 84 20 122/52 (75) 96 Ventilator 99.0 06/25/19 08:00 Mechanical Ventilator 06/25/19 07:46 98 Ventilator 06/25/19 07:00 80 20 119/52 (74) 98 Ventilator 06/25/19 06:05 99.1 90 16 134/75 (94) 96 Ventilator 99.1 06/25/19 05:11 86 18 141/86 (104) 98 Ventilator 06/25/19 04:28 100 Ventilator 06/25/19 04:00 99.1 90 16 134/75 (94) 96 Ventilator 99.1 06/25/19 04:00 Mechanical Ventilator 06/25/19 03:00 86 16 135/72 (93) 96 Ventilator 06/25/19 02:06 97 14 146/74 (98) 99 Ventilator 06/25/19 01:27 100 Ventilator 06/25/19 01:00 97 16 137/64 (88) 98 Ventilator 06/25/19 00:06 99.1 93 18 130/72 (91) 97 Ventilator 99.1 06/24/19 23:59 Mechanical Ventilator 06/24/19 23:52 97 Ventilator 06/24/19 23:18 91 18 112/60 (77) 98 Ventilator 06/24/19 22:00 90 20 132/75 (94) 96 Ventilator 06/24/19 21:06 98.9 89 22 135/75 (95) 98 Ventilator 98.9 06/24/19 20:12 96 Ventilator 06/24/19 20:00 Mechanical Ventilator 06/24/19 19:21 102.9 107 24 157/81 (106) 96 Ventilator 102.9 06/24/19 19:00 101.6 109 25 149/85 (106) 98 Ventilator 101.6 06/24/19 18:12 96 Ventilator 06/24/19 18:00 102.9 107 24 157/81 (106) 96 Ventilator 102.9 06/24/19 17:00 101 22 149/85 (106) 97 Ventilator 06/24/19 16:24 95 Ventilator 06/24/19 16:00 Mechanical Ventilator 06/24/19 16:00 100.8 117 26 141/78 (99) 94 Ventilator 100.8 06/24/19 15:00 98 20 149/86 (107) 93 Ventilator 06/24/19 14:06 97 20 142/78 (99) 100 Ventilator 06/24/19 13:15 95 Ventilator 06/24/19 13:00 103 24 150/84 (106) 97 Ventilator 06/24/19 12:00 100.4 100 23 148/88 (108) 100 Ventilator 100.4 06/24/19 12:00 Mechanical Ventilator 06/24/19 11:41 95 Ventilator 06/24/19 11:00 84 20 143/85 (104) 100 Ventilator 06/24/19 10:04 99.7 92 20 115/74 (88) 100 Ventilator 99.7 06/24/19 09:31 99 Ventilator 06/24/19 09:00 88 20 109/60 (76) 94 Ventilator 06/24/19 08:00 Mechanical Ventilator 06/24/19 08:00 93 20 135/79 (97) 93 Ventilator 06/24/19 07:50 99 Ventilator 06/24/19 07:00 101.2 89 20 137/84 (101) 99 Ventilator 101.2 Laboratory Laboratory Laboratory Tests Test 06/24/19 16:35 06/25/19 08:00 06/25/19 08:40 Vancomycin Level Trough 10.8 mcg/mL (10.0-20.0) Vancomycin Last Dose Date Unk Vancomycin Last Dose Time Unk O2 Saturation 97 % (92-99) Arterial Blood pH 7.47 (7.35-7.45) Arterial Blood pCO2 at Patient Temp 37 mmHg (35-46) Arterial Blood pO2 at Patient Temp 96 mmHg (85-108) Arterial Blood HCO3 26 mmol/L (21-28) Arterial Blood Base Excess 3 mmol/L (-3-3) Sodium Level 140 mmol/L (136-145) Potassium Level 3.5 mmol/L (3.5-5.1) Chloride Level 105 mmol/L (98-107) Carbon Dioxide Level 28 mmol/L (21-32) Anion Gap 7 (6-14) Blood Urea Nitrogen 10 mg/dL (8-26) Creatinine 0.6 mg/dL (0.7-1.3) Estimated GFR (Cockcroft-Gault) 161.6 Glucose Level 110 mg/dL (70-99) Calcium Level 8.2 mg/dL (8.5-10.1) Microbiology 06/23/19 CSF Gram Stain - Final, Complete 06/23/19 Blood Culture - Preliminary, Resulted NO GROWTH AFTER 2 DAYS 06/23/19 Urine Culture - Final, Complete 06/23/19 Urine Culture Result 1 (VINAY) - Final, Complete Medication Medications Current Medications Enoxaparin Sodium (Lovenox 40mg Syringe) 40 mg Q24H SQ Last administered on 06/24/19at 20:55; Start 06/24/19 at 21:00 Vancomycin HCl (Vancomycin Trough Level) 1 each 1X ONCE MC ; Start 06/24/19 at 16:30; Stop 06/24/19 at 16:31; Status DC Vancomycin HCl (Vancomycin Trough Level) 1 each 1X ONCE MC ; Start 06/25/19 at 17:30; Stop 06/25/19 at 11:44; Status DC Vancomycin HCl 2 gm/Sodium Chloride 500 ml @ 250 mls/hr Q8H IV Last administered on 06/25/19at 09:35; Start 06/24/19 at 18:00; Stop 06/25/19 at 11:42; Status DC Comment Review of Relevant I have reviewed the following items rosalina (where applicable) has been applied. RADHA WORRELL MD Jun 25, 2019 14:13
[2019-06-25 15:37] LABS: BASE EXCESS ABG 2 mmol/L (-3-3); HCO3 ABG 26 mmol/L (21-28); PCO2 ABG 36 mmHg (35-46); PO2 ABG 141 mmHg (85-108); SAT O2 ABG 98 % (92-99)
--- NOTE | 2019-06-25 15:57 | NUR ---
Pt extubated at 1355, RT sabrina and RN at bedside- pt placed on 2L NC, 02 sat 100%, no complaints of pain. Pt tolerated well, immediately talking to RN after extubation.
[2019-06-25 16:27] LABS: FIO2 ABG 40
[2019-06-25] MEDS: ENOXAPARIN 40 MG/0.4 ML SYRINGE. SQ SCH (22:09)
[2019-06-26] VITALS (18 sets, daily range): BP systolic 125–181; BP diastolic 78–106
[2019-06-26] MEDS: ACYCLOVIR SODIUM 800 MG in IV DEXTROSE 5% 250 ML IV SCH (06:21)
[2019-06-26] MEDS: CHLORHEXIDINE 0.12% 15 ML MOUTHWASH. MM SCH (07:40)
[2019-06-26] MEDS: MULTIVITAMINS,THERAPEUTIC 5 ML ORAL LIQUID. NG SCH (08:02)
[2019-06-26] MEDS: levETIRAcetam 750 MG in IV DEXTROSE 5% 100ML 100 ML IV SCH (08:02)
[2019-06-26] MEDS: OSELTAMIVIR 30 MG/5 ML ORAL.SUSP. PEG SCH (08:02)
--- NOTE | 2019-06-26 10:08 | PDOC ---
PROGRESS NOTES Chief Complaint Chief Complaint impression status epilepticus MS exacerbation scattered multifocal moderate to severe T2 and FLAIR hyperintense signal abnormality of the supratentorial parenchyma bilaterally primarily centered in the white matter Influenza A (lab confirmed) Status epilepticus. acute Metabolic encephalopathy. post ictal Lactic acidosis secondary to seizures and increased work of breathing. fever. Leukocytosis. Positive influenza screen. acute hypoxic Respiratory failure. Metabolic encephalopathy. Fever Lactic acidosis. History of Present Illness History of Present Illness 06/24/2019 pt seen and examined family present at bedside, discussed pt care with them chart reviewed consulted with RN regarding pt care and treatment plan pt on ventilator AC 20/500/40% fiO2/ 5 peep pt currently on IC fluids reviewed imaging results with family and answered their questions 06/26/2019 examined in the ICU Chart reviewed D/W RN arousable 33 min cc time General: Alert, moderate distress Lungs: Clear Abdomen: Normal bowel sounds, Soft, No tenderness, No hepatosplenomegaly, No masses Extremities: No clubbing, No cyanosis, No edema, Normal pulses, No tenderness/swelling Skin: No rashes, No breakdown, No significant lesion Vitals Vitals Vital Signs Date Time Temp Pulse Resp B/P (MAP) Pulse Ox O2 Delivery O2 Flow Rate FiO2 06/26/19 08:00 Room Air 06/26/19 06:00 88 20 140/86 (104) 99 06/26/19 04:00 98.2 98.2 06/25/19 17:00 2.0 Physical Exam Physical Exam General: Alert, moderate distress Lungs: Clear Abdomen: Normal bowel sounds, Soft, No tenderness, No hepatosplenomegaly, No masses Extremities: No clubbing, No cyanosis, No edema, Normal pulses, No tenderness/swelling Skin: No rashes, No breakdown, No significant lesion General: Alert, Cooperative, moderate distress Lungs: Clear Abdomen: Normal bowel sounds, Soft, No tenderness, No hepatosplenomegaly, No masses Extremities: No clubbing, No cyanosis, No edema, Normal pulses, No tenderness/swelling Skin: No rashes, No breakdown, No significant lesion Labs LABS MRI Brain with and without contrast History: Status epilepticus Technique: Multiplanar, multi sequential pre and postcontrast MR imaging was performed of the brain. Comparison: None other than head CT this same day. Findings: There is some motion degradation. There is some signal loss on diffusion sequence in the left parietal temporal region. There is no convincing evidence of recent infarct. There is no midline shift, intra-axial mass effect, or nodular parenchymal or leptomeningeal enhancement. There is multifocal moderate to severe T2 and FLAIR hyperintense signal abnormality of the supratentorial parenchyma bilaterally greatest of the bilateral parietal and periatrial white matter. There is some extent of T2 and FLAIR hyperintense signal close to the cortical surface in the right parietal region although signal abnormalities primarily centered in the white matter. There is moderate ethmoid air cell mucosal thickening, to lesser degree the sphenoid sinus. There is [id number]-[id number] right and minimal left maxillary sinus mucosal thickening, small right maxillary sinus air-fluid level. There is some fluid in the pharynx. Cerebellar tonsils are normal in location. There is preserved marrow signal of the clivus. There is no abnormality of pineal gland or pituitary gland. There is minimal patchy fluid and thickening of the left mastoid air cells, minimal thickening on the right. IMPRESSION: 1. There is no abnormal intracranial enhancement or evidence of recent infarct. There is scattered multifocal moderate to severe T2 and FLAIR hyperintense signal abnormality of the supratentorial parenchyma bilaterally primarily centered in the white matter. In a patient this age, sequela of inflammatory demyelinating disease is considered most likely unless there is suspicion for inherited disease such as CADASIL. Symmetric pattern and distribution of involvement would be atypical for sequela of infectious etiology. 2. There is paranasal sinus mucosal thickening as stated, small right maxillary sinus air-fluid level. Electronically signed by: Gerald Bass MD (06/23/2019 7:46 PM) [id number] DICTATED and SIGNED BY: GERALD BASS MD DATE: 06/23/191945 STATUS: ADM IN ORD. PHYSICIAN: NIDIA MUÑOZ MD REASON: Mechanical vent PROCEDURE: CHEST AP ONLY CHEST AP ONLY Clinical Indication: Mechanical ventilation Comparison: 06/24/2019 view of the chest. Findings: Portable semiupright frontal view of the chest was obtained. Pedicle screws in place. Enteric tube is identified. The cardiomediastinal silhouette is normal. Lungs are clear. There is no pneumothorax. No pleural effusion is appreciated. No acute bone abnormality. IMPRESSION: No acute cardiopulmonary process. Electronically signed by: Shawn Harmon MD (06/25/2019 12:10 PM) [id number] DICTATED and SIGNED BY: SHAWN HARMON MD DATE: 06/25/19 1210 Laboratory Tests Test 06/25/19 15:30 O2 Saturation 98 % (92-99) Arterial Blood pH 7.47 (7.35-7.45) Arterial Blood pCO2 at Patient Temp 36 mmHg (35-46) Arterial Blood pO2 at Patient Temp 141 mmHg (85-108) Arterial Blood HCO3 26 mmol/L (21-28) Arterial Blood Base Excess 2 mmol/L (-3-3) FiO2 40 Assessment and Plan Assessmemt and Plan Problems Medical Problems: (1) Bandemia Status: Acute (2) Leukocytosis Status: Acute (3) Status epilepticus Status: Acute Comment Review of Relevant I have reviewed the following items rosalina (where applicable) has been applied. Labs Laboratory Tests Test 06/24/19 16:35 06/25/19 08:00 06/25/19 08:40 06/25/19 15:30 Vancomycin Level Trough 10.8 mcg/mL (10.0-20.0) Vancomycin Last Dose Date Unk Vancomycin Last Dose Time Unk O2 Saturation 97 % (92-99) 98 % (92-99) Arterial Blood pH 7.47 (7.35-7.45) 7.47 (7.35-7.45) Arterial Blood pCO2 at Patient Temp 37 mmHg (35-46) 36 mmHg (35-46) Arterial Blood pO2 at Patient Temp 96 mmHg (85-108) 141 mmHg (85-108) Arterial Blood HCO3 26 mmol/L (21-28) 26 mmol/L (21-28) Arterial Blood Base Excess 3 mmol/L (-3-3) 2 mmol/L (-3-3) Sodium Level 140 mmol/L (136-145) Potassium Level 3.5 mmol/L (3.5-5.1) Chloride Level 105 mmol/L (98-107) Carbon Dioxide Level 28 mmol/L (21-32) Anion Gap 7 (6-14) Blood Urea Nitrogen 10 mg/dL (8-26) Creatinine 0.6 mg/dL (0.7-1.3) Estimated GFR (Cockcroft-Gault) 161.6 Glucose Level 110 mg/dL (70-99) Calcium Level 8.2 mg/dL (8.5-10.1) FiO2 40 Laboratory Tests Test 06/25/19 15:30 O2 Saturation 98 % (92-99) Arterial Blood pH 7.47 (7.35-7.45) Arterial Blood pCO2 at Patient Temp 36 mmHg (35-46) Arterial Blood pO2 at Patient Temp 141 mmHg (85-108) Arterial Blood HCO3 26 mmol/L (21-28) Arterial Blood Base Excess 2 mmol/L (-3-3) FiO2 40 Microbiology 06/23/19 CSF Gram Stain - Final, Complete 06/23/19 Blood Culture - Preliminary, Resulted NO GROWTH AFTER 2 DAYS 06/23/19 Urine Culture - Final, Complete 06/23/19 Urine Culture Result 1 (VINAY) - Final, Complete Medications Current Medications Propofol 100 ml @ 0 mls/hr CONT PRN IV SEE PROTOCOL Last administered on 06/25/19at 07:19; Start 06/23/19 at 11:00 Chlorhexidine Gluconate (Peridex) 15 ml BID MM Last administered on 06/25/19at 09:35; Start 06/23/19 at 21:00 Midazolam HCl (Versed) 2 mg PRN Q30MIN PRN IV SEE COMMENTS. Last administered on 06/23/19at 16:13; Start 06/23/19 at 11:00 Sodium Chloride 1,000 ml @ 1,000 mls/hr 1X ONCE IV Last administered on 06/23/19at 11:23; Start 06/23/19 at 11:15; Stop 06/23/19 at 12:14; Status DC Propofol 50 ml @ As Directed STK-MED ONCE IV ; Start 06/23/19 at 11:06; Stop 06/23/19 at 11:06; Status DC Midazolam HCl 50 mg/Sodium Chloride 50 ml @ 1 mls/hr 1X ONCE IV Last administered on 06/23/19at 11:43; Start 06/23/19 at 11:15; Stop 06/25/19 at 13:14; Status DC Propofol 50 ml @ 0 mls/hr 1X ONCE IV Last administered on 06/23/19at 11:19; Start 06/23/19 at 11:30; Stop 06/23/19 at 11:31; Status DC Propofol 50 ml @ 0 mls/hr 1X ONCE IV Last administered on 06/23/19at 11:19; Start 06/23/19 at 11:30; Stop 2/18/20 at 11:31; Status DC Levetiracetam 1000 mg/Dextrose 110 ml @ 440 mls/hr 1X ONCE IV Last administered on 06/23/19at 12:19; Start 06/23/19 at 12:00; Stop 06/23/19 at 12:14; Status DC Lorazepam (Ativan Inj) 4 mg 1X ONCE IVP Last administered on 06/23/19at 11:59; Start 06/23/19 at 12:00; Stop 06/23/19 at 12:01; Status DC Lidocaine HCl (Lidocaine 1% 20ml Vial) 20 ml 1X ONCE INJ Last administered on 06/23/19at 15:00; Start 06/23/19 at 12:30; Stop 06/23/19 at 12:31; Status DC Sodium Chloride 1,000 ml @ 1,000 mls/hr 1X ONCE IV Last administered on 06/23/19at 13:24; Start 06/23/19 at 12:30; Stop 06/23/19 at 13:29; Status DC Midazolam HCl (Versed) 5 mg 1X ONCE IV Last administered on 06/23/19at 10:43; Start 06/23/19 at 13:15; Stop 06/23/19 at 13:16; Status DC Midazolam HCl (Versed) 5 mg 1X ONCE IV Last administered on 06/23/19at 10:49; Start 06/23/19 at 13:15; Stop 06/23/19 at 13:16; Status DC Rocuronium [place] (Zemuron) 50 mg 1X ONCE IV Last administered on 06/23/19at 10:50; Start 06/23/19 at 13:15; Stop 06/23/19 at 13:16; Status DC Lorazepam (Ativan Inj) 2 mg PRN Q1HR PRN IVP TREMORS Last administered on 06/23/19at 13:19; Start 06/23/19 at 13:30 Lorazepam (Ativan Inj) 4 mg 1X ONCE IVP Last administered on 06/23/19at 14:22; Start 06/23/19 at 14:30; Stop 06/23/19 at 14:31; Status DC Lorazepam 40 mg/ Sodium Chloride 270 ml @ 0 mls/hr CONT PRN IV SEE PROTOCOL Last administered on 06/23/19at 15:02; Start 2/18/20 at 14:30 Ceftriaxone Sodium (Rocephin) 2 gm 1X ONCE IVP Last administered on 06/23/19at 15:16; Start 06/23/19 at 14:30; Stop 06/23/19 at 14:31; Status DC Vancomycin HCl 2 gm/Sodium Chloride 500 ml @ 250 mls/hr 1X ONCE IV Last administered on 06/23/19at 17:27; Start 06/23/19 at 14:30; Stop 06/23/19 at 16:29; Status DC Dexamethasone Sodium Phosphate (Decadron) 10 mg 1X ONCE IVP Last administered on 06/23/19at 15:18; Start 06/23/19 at 14:30; Stop 06/23/19 at 14:31; Status DC Acyclovir Sodium 800 mg/Dextrose 116 ml @ 116 mls/hr 1X ONCE IV ; Start 06/23/19 at 14:30; Stop 06/23/19 at 14:36; Status DC Acyclovir Sodium 800 mg/Dextrose 266 ml @ 266 mls/hr 1X ONCE IV Last administered on 06/23/19at 15:18; Start 06/23/19 at 14:45; Stop 06/23/19 at 15:44; Status DC Ondansetron HCl (Zofran) 4 mg PRN Q8HRS PRN IV NAUSEA/VOMITING; Start 06/23/19 at 15:45; Stop 06/23/19 at 19:58; Status DC Fentanyl Citrate (Fentanyl 2ml Vial) 50 mcg PRN Q1HR PRN IV PAIN; Start 06/23/19 at 15:45; Stop 06/24/19 at 15:44; Status DC Sodium Chloride 1,000 ml @ 125 mls/hr 1X ONCE IV ; Start 06/23/19 at 15:45; Stop 06/23/19 at 23:44; Status DC Propofol 50 ml @ As Directed STK-MED ONCE IV ; Start 06/23/19 at 16:02; Stop at 16:02; Status DC Levetiracetam 750 mg/Dextrose 107.5 ml @ 420 mls/hr Q12HR IV ; Start 06/23/19 at 17:00; Status Cancel Levetiracetam 750 mg/Dextrose 107.5 ml @ 420 mls/hr Q12HR IV Last administered on 06/26/19at 08:02; Start 06/23/19 at 21:00 Lorazepam (Ativan Inj) 2 mg 1X ONCE IVP ; Start 06/23/19 at 17:00; Stop 06/23/19 at 17:01; Status DC Propofol 50 ml @ As Directed STK-MED ONCE IV ; Start 06/23/19 at 17:35; Stop 06/23/19 at 17:35; Status DC Gadoterate Meglumine (Dotarem) 10 ml 1X ONCE IVP Last administered on 06/23/19at 18:50; Start 06/23/19 at 17:45; Stop 06/23/19 at 17:47; Status DC Gadoterate Meglumine (Dotarem) 10 ml 1X ONCE IVP Last administered on 06/23/19at 18:50; Start 06/23/19 at 17:45; Stop 06/23/19 at 17:47; Status DC Ondansetron HCl (Zofran) 4 mg PRN Q4HRS PRN IV NAUSEA/VOMITING; Start 06/23/19 at 20:00 Acyclovir Sodium 800 mg/Dextrose 266 ml @ 266 mls/hr Q8H IV Last administered on 06/26/19at 06:21; Start 06/23/19 at 23:00 Ceftriaxone Sodium (Rocephin) 2 gm Q24H IVP Last administered on 06/24/19at 13:40; Start 06/24/19 at 14:00; Stop 06/25/19 at 11:42; Status DC Vancomycin HCl (Vanco Per Pharmacy) 1 each PRN DAILY PRN MC SEE COMMENTS Last administered on 06/25/19at 10:52; Start 06/23/19 at 20:30; Stop 06/25/19 at 11:44 ; Status DC Vancomycin HCl 1.5 gm/Sodium Chloride 500 ml @ 250 mls/hr Q8H IV Last administered on 06/24/19at 17:00; Start 06/24/19 at 01:00; Stop 06/24/19 at 17:45; Status DC Vancomycin HCl (Vancomycin Trough Level) 1 each 1X ONCE MC ; Start 06/24/19 at 16:30; Stop 06/24/19 at 16:31; Status DC Oseltamivir Phosphate (Tamiflu Suspension) 75 mg BID PEG Last administered on 06/25/19at 22:09; Start 06/23/19 at 22:00; Stop 06/26/19 at 08:08; Status DC Acetaminophen (Tylenol) 650 mg PRN Q6HRS PRN NG MILD PAIN / TEMP Last administered on 06/24/19at 18:27; Start 06/24/19 at 08:00 Multivitamins/ Minerals Therapeutic (Centrum Multivit-Mineral Liq) 5 ml DAILY NG Last administered on 06/26/19at 08:02; Start 06/24/19 at 09:00 Enoxaparin Sodium (Lovenox 40mg Syringe) 40 mg Q24H SQ Last administered on 06/25/19at 22:09; Start 06/24/19 at 21:00 Vancomycin HCl 2 gm/Sodium Chloride 500 ml @ 250 mls/hr Q8H IV Last administered on 06/25/19at 09:35; Start 06/24/19 at 18:00; Stop 06/25/19 at 11:42; Status DC Vancomycin HCl (Vancomycin Trough Level) 1 each 1X ONCE MC ; Start 06/25/19 at 17:30; Stop 06/25/19 at 11:44; Status DC Oseltamivir Phosphate (Tamiflu) 75 mg BID PO ; Start 06/26/19 at 09:00; Stop 06/28/19 at 09:01 Active Scripts Active Reported Gilenya (Fingolimod Hcl) 0.5 Mg Capsule 0.5 Mg PO DAILY Vitamin D3 (Cholecalciferol (Vitamin D3)) 5,000 Unit Tab.rapdis 1 Tab PO DAILY 30 Days Ginkgo Biloba Extract (Ginkgo Biloba [place] Extract) 60 Mg Capsule 60 Mg PO DAILY Divalproex Sodium 500 Mg Tablet.dr 500 Mg PO DAILY PRN Vitals/I & O Vital Sign - Last 24 Hours 06/25/19 06/25/19 06/25/19 06/25/19 11:00 11:19 12:00 12:00 Temp 98.9 98.9 Pulse 85 78 Resp 20 20 B/P (MAP) 140/86 (104) 139/84 (102) Pulse Ox 98 99 96 O2 Delivery Ventilator Ventilator Mechanical Ventilator Ventilator 06/25/19 06/25/19 06/25/19 06/25/19 13:00 13:43 14:00 15:00 Pulse 92 87 92 Resp 20 20 20 B/P (MAP) 140/76 (97) 138/78 (98) 140/76 (97) Pulse Ox 98 99 98 98 O2 Delivery Ventilator Ventilator Ventilator Ventilator 06/25/19 06/25/19 06/25/19 06/25/19 15:00 16:00 16:00 17:00 Temp 99.1 99.1 Pulse 90 95 Resp 20 16 B/P (MAP) 153/81 (105) 140/73 (95) Pulse Ox 99 96 98 O2 Delivery Ventilator Nasal Cannula Mechanical Ventilator Nasal Cannula O2 Flow Rate 2.0 2.0 06/25/19 06/25/19 06/25/19 06/25/19 18:00 19:00 20:00 20:00 Pulse 87 90 95 Resp 25 20 18 B/P (MAP) 155/105 (122) 148/92 (110) 155/96 (115) Pulse Ox 98 99 99 O2 Delivery Room Air Room Air Room Air Room Air 06/25/19 06/25/19 06/25/19 06/25/19 21:00 22:11 23:00 23:59 Temp 98.2 98.2 Pulse 94 89 88 82 Resp 14 22 20 18 B/P (MAP) 148/78 (101) 160/104 (122) 158/9 (58) 137/82 (100) Pulse Ox 99 96 98 98 O2 Delivery Room Air Room Air Room Air Room Air 06/25/19 06/26/19 06/26/19 06/26/19 23:59 01:00 02:00 03:00 Temp 98.8 98.8 Pulse 100 92 84 Resp 20 18 15 B/P (MAP) 137/94 (108) 145/86 (105) 157/94 (115) Pulse Ox 98 99 99 O2 Delivery Room Air Room Air Room Air Room Air 06/26/19 06/26/19 06/26/19 06/26/19 04:00 04:00 05:32 06:00 Temp 98.2 98.2 Pulse 93 90 88 Resp 18 18 20 B/P (MAP) 147/78 (101) 147/93 (111) 140/86 (104) Pulse Ox 98 99 99 O2 Delivery Room Air Room Air Room Air Room Air 06/26/19 08:00 O2 Delivery Room Air Intake and Output 06/25/19 06/25/19 06/26/19 15:00 23:00 07:00 Intake Total 350 ml 873.5 ml 350 ml Output Total 550 ml 625 ml 700 ml Balance -200 ml 248.5 ml -350 ml NAGA LING MD Jun 26, 2019 10:08
[2019-06-26] MEDS: OSELTAMIVIR 75 MG CAPSULE PO SCH ×2 (10:17→20:43)
--- NOTE | 2019-06-26 10:30 | RAD ---
CHEST AP ONLY History: Shortness of breath Comparison: June 25, 2019 Findings: Increased central and bibasilar patchy opacities. Low lung volumes. Elevation the right hemidiaphragm. Interval extubation and removal of enteric tube. No pneumothorax. No pleural effusion. Impression: 1. Low lung volumes with central and bibasilar opacities, likely atelectasis. Electronically signed by: Gen Pruitt DO (06/26/2019 10:27 AM) [id number]
--- NOTE | 2019-06-26 11:36 | PDOC ---
PULMONARY PROGRESS NOTES Subjective EXTUBATED 06/25 ON RA confused Vitals Vital Signs Date Time Temp Pulse Resp B/P (MAP) Pulse Ox O2 Delivery O2 Flow Rate FiO2 06/26/19 11:00 88 22 142/103 (116) 99 Room Air 06/26/19 08:00 98.2 98.2 06/25/19 17:00 2.0 ROS: No Chest Pain General: No acute distress Lungs: Clear Cardiovascular: S1 Abdomen: Soft Extremities: No Edema Skin: Warm Labs Laboratory Tests Test 06/24/19 16:35 06/25/19 08:00 06/25/19 08:40 06/25/19 15:30 Vancomycin Level Trough 10.8 mcg/mL (10.0-20.0) Vancomycin Last Dose Date Unk Vancomycin Last Dose Time Unk O2 Saturation 97 % (92-99) 98 % (92-99) Arterial Blood pH 7.47 (7.35-7.45) 7.47 (7.35-7.45) Arterial Blood pCO2 at Patient Temp 37 mmHg (35-46) 36 mmHg (35-46) Arterial Blood pO2 at Patient Temp 96 mmHg (85-108) 141 mmHg (85-108) Arterial Blood HCO3 26 mmol/L (21-28) 26 mmol/L (21-28) Arterial Blood Base Excess 3 mmol/L (-3-3) 2 mmol/L (-3-3) Sodium Level 140 mmol/L (136-145) Potassium Level 3.5 mmol/L (3.5-5.1) Chloride Level 105 mmol/L (98-107) Carbon Dioxide Level 28 mmol/L (21-32) Anion Gap 7 (6-14) Blood Urea Nitrogen 10 mg/dL (8-26) Creatinine 0.6 mg/dL (0.7-1.3) Estimated GFR (Cockcroft-Gault) 161.6 Glucose Level 110 mg/dL (70-99) Calcium Level 8.2 mg/dL (8.5-10.1) FiO2 40 Laboratory Tests Test 06/25/19 15:30 O2 Saturation 98 % (92-99) Arterial Blood pH 7.47 (7.35-7.45) Arterial Blood pCO2 at Patient Temp 36 mmHg (35-46) Arterial Blood pO2 at Patient Temp 141 mmHg (85-108) Arterial Blood HCO3 26 mmol/L (21-28) Arterial Blood Base Excess 2 mmol/L (-3-3) FiO2 40 Medications Active Scripts Medications Dose Route/Sig Max Daily Dose Days Date Category Gilenya (Fingolimod Hcl) 0.5 Mg Capsule 0.5 Mg PO DAILY 06/24/19 Reported Vitamin D3 (Cholecalciferol (Vitamin D3)) 5,000 Unit Tab.rapdis 1 Tab PO DAILY 30 06/24/19 Reported Ginkgo Biloba Extract (Ginkgo Biloba [place] Extract) 60 Mg Capsule 60 Mg PO DAILY 06/24/19 Reported Divalproex Sodium 500 Mg Tablet.dr 500 Mg PO DAILY PRN 06/24/19 Reported Comments CXR 06/25 faint interstitial infiltrates Impression . 1. Acute respiratory failure secondary to status epilepticus. extubated 06/25 2. Status epilepticus. 3. Metabolic encephalopathy. post ictal 4. Lactic acidosis secondary to seizures and increased work of breathing. 5. fever. 6. Leukocytosis. 7. Positive influenza screen. 8. Status post LP with no organisms seen on Gram stain. Plan . 1. on RA 2. Influenza isolation/ tamiflu 3. off antibiotic per PCP. 4. Follow LP results. 5. d/w RN/ father 6. Neuro rec GUICHO SMALL MD Jun 26, 2019 11:36
[2019-06-26 12:17] LABS: CREATININE 0.5 mg/dL (0.7-1.3); GFR 199.5
[2019-06-26 13:11] LABS: HERPES SIMPLEX TYPE 1 Negative (Negative); HERPES SIMPLEX TYPE 2 Negative (Negative)
--- NOTE | 2019-06-26 14:09 | PDOC ---
PROGRESS NOTES Assessment Assessment Status epilepticus. Seizure x 1, a year ago. Influenza A. Respiratory failure. Metabolic encephalopathy. Fever Lactic acidosis. Leukocytosis. MS. Genital wards likely. Obesity. RECOMMENDATIONS/PLAN: Continue Keppra 500 mg po bid. Treat medical diseases. EEG. FU CSF culture results. Discussed with his parents at bedside in ICU on 06/26/19. HCT performed no SAH, ICH or other acute findings. 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 Brain MRI w/wo contrast no acute findings. HISTORY OF THE PRESENT ILLNESS: This is a 29-year-old male patient with history of MS and seizure. He was brought to the ER of [facility] on 06/23/19 due to persistent seizures. He was repo rtedly to have a seizure about 1 year ago that was severe enough to be taken to [facility]. According to his parents and partner he was placed on a unknown seizure medication following last episode. This medication was stopped by his neurologist Perfecto Tuttle APRN at [facility] in December of 2018. Prior to this evening he had been dealing with gastroenteritis-like symptoms with nausea and vomiting. His partner said that he was very lethargic this morning and his partner had to dress him. They were on the way to an urgent care when patient's right arm stiffened and he was unable to move it. They were in the middle of it going down the stairs. His partner stated that he carried the patient down the stairs. The patient then began seizing. He and his partner both fell to the ground. His partner was unsure about any head trauma. His partner placed him on his side and immediately dialed 911 and his parents. In route to the hospital via EMT he received 10 mg of Versed was given. He was stil l seizing in the ER of [facility] and eventually stopped by Ativan and Versed. 06/26/19: Off vent. No sedation. No seizures. Still has MS changes. PAST MEDICAL HISTORY: Seizure MS PAST SURGERY HISTORY: No major surgery recently. ALLERGY: Unknown MEDICATIONS: Refer to [facility] FAMILY HISTORY: Non contributory. SOCIAL HISTORY: Lives with his partner. Denies smoking. He drinks alcohol occasionally. He uses/abuses marijuana. REVIEW OF SYSTEMS: Constitutional: No malnutrition, weight loss, cachexia. Head: No traumatic brain or head injury. Skin: No edema, or rash. Ear: No infection. Eyes: No vision loss or color blindness. Nose: No bleeding or purulent discharges. Hearing: No hearing decrease. Neck: No injury. Cardiac: No LA, arrhythmia,claudication. Pulmonary: Pneumonia. GI: No GI ulcer, GI bleeding. Urinary/genital: UTI. Endocrinologic: Diabetes Mellitus. Skeletomuscular: No muscular atrophy, deformity. Neurological: Seizure, MS. Psychiatric: Marijuana use/abuse. Otherwise, not [id number] review of systems. PHYSICAL EXAMINATION: General appearance is in subacute distress. HEENT: Normocephalic and nontraumatic. Eyes, nose, ears, and throat are unremarkable. Neck is supple. No crepitus. Cardiovascular: S1, S2, regular rate and rhythm. Pulmonary: On vent. Abdomen: Bowel sounds are positive. Extremities: No rash, lesions, or edema. No restriction of range of motion NEUROLOGICAL EXAMINATION: Off vent. Drowsiness. Able to talk, but reactions are very slow. Not oriented to time and place but knew person. PERRL EOMI. CN: no focal findings elicited. Muscle tone: WNL Muscle strength: 4 DTR: 2 UE, 1+ at knee. Plantar reflex: Neutral response bilaterally Gait: Able to walk a few steps. Sensory exam: No acute abnormal findings. No other cerebellar signs elicited. F-T-N test not performed due to not follow commands. Objective Objective Vital Signs Date Time Temp Pulse Resp B/P (MAP) Pulse Ox O2 Delivery O2 Flow Rate FiO2 06/26/19 12:00 98.8 88 18 154/86 (108) Room Air 98.8 06/26/19 11:00 99 06/25/19 17:00 2.0 Intake and Output 06/26/19 07:00 Intake Total 1573.5 ml Output Total 1975 ml Balance -401.5 ml IV Total 1223.5 ml Tube Feeding 350 ml Output Urine Total 1975 ml Vitals Signs Vitals VS - Last 72 Hours, by Label Date Time Temp Pulse Resp B/P (MAP) Pulse Ox O2 Delivery O2 Flow Rate FiO2 06/26/19 12:00 98.8 88 18 154/86 (108) Room Air 98.8 06/26/19 12:00 Room Air 06/26/19 11:00 88 22 142/103 (116) 99 Room Air 06/26/19 10:00 83 22 168/83 (111) 99 Room Air 06/26/19 09:00 84 22 157/83 (107) 99 Room Air 06/26/19 08:00 Room Air 06/26/19 08:00 98.2 93 18 181/104 (129) 98 Room Air 98.2 06/26/19 07:00 90 20 125/96 (106) 99 Room Air 06/26/19 06:00 88 20 140/86 (104) 99 Room Air 06/26/19 05:32 90 18 147/93 (111) 99 Room Air 06/26/19 04:00 Room Air 06/26/19 04:00 98.2 93 18 147/78 (101) 98 Room Air 98.2 06/26/19 03:00 84 15 157/94 (115) 99 Room Air 06/26/19 02:00 92 18 145/86 (105) 99 Room Air 06/26/19 01:00 98.8 100 20 137/94 (108) 98 Room Air 98.8 06/25/19 23:59 Room Air 06/25/19 23:59 82 18 137/82 (100) 98 Room Air 06/25/19 23:00 88 20 158/9 (58) 98 Room Air 06/25/19 22:11 89 22 160/104 (122) 96 Room Air 06/25/19 21:00 98.2 94 14 148/78 (101) 99 Room Air 98.2 06/25/19 20:00 Room Air 06/25/19 20:00 95 18 155/96 (115) 99 Room Air 06/25/19 19:00 90 20 148/92 (110) 99 Room Air 06/25/19 18:00 87 25 155/105 (122) 98 Room Air 06/25/19 17:00 95 16 140/73 (95) 98 Nasal Cannula 2.0 06/25/19 16:00 Mechanical Ventilator 06/25/19 16:00 99.1 90 20 153/81 (105) 96 Nasal Cannula 2.0 99.1 06/25/19 15:00 99 Ventilator 06/25/19 15:00 92 20 140/76 (97) 98 Ventilator 06/25/19 14:00 87 20 138/78 (98) 98 Ventilator 06/25/19 13:43 99 Ventilator 06/25/19 13:00 92 20 140/76 (97) 98 Ventilator 06/25/19 12:00 98.9 78 20 139/84 (102) 96 Ventilator 98.9 06/25/19 12:00 Mechanical Ventilator 06/25/19 11:19 99 Ventilator 06/25/19 11:00 85 20 140/86 (104) 98 Ventilator 06/25/19 10:00 78 20 109/50 (69) 98 Ventilator 06/25/19 09:00 84 20 128/57 (80) 98 Ventilator 06/25/19 08:58 98 Ventilator 06/25/19 08:00 99.0 84 20 122/52 (75) 96 Ventilator 99.0 06/25/19 08:00 Mechanical Ventilator 06/25/19 07:46 98 Ventilator 06/25/19 07:00 80 20 119/52 (74) 98 Ventilator Laboratory Laboratory Laboratory Tests Test 06/25/19 15:30 06/26/19 11:55 O2 Saturation 98 % (92-99) Arterial Blood pH 7.47 (7.35-7.45) Arterial Blood pCO2 at Patient Temp 36 mmHg (35-46) Arterial Blood pO2 at Patient Temp 141 mmHg (85-108) Arterial Blood HCO3 26 mmol/L (21-28) Arterial Blood Base Excess 2 mmol/L (-3-3) FiO2 40 Creatinine 0.5 mg/dL (0.7-1.3) Estimated GFR (Cockcroft-Gault) 199.5 Microbiology 06/23/19 CSF Gram Stain - Final, Complete 06/23/19 Blood Culture - Preliminary, Resulted NO GROWTH AFTER 3 DAYS 06/23/19 Urine Culture - Final, Complete 06/23/19 Urine Culture Result 1 (VINAY) - Final, Complete Medication Medications Current Medications Non-Formulary Medication 1 ea DAILY PO ; Start 06/26/19 at 13:30 Oseltamivir Phosphate (Tamiflu) 75 mg BID PO Last administered on 06/26/19at 10:17; Start 06/26/19 at 09:00; Stop 06/28/19 at 09:01 Vancomycin HCl (Vancomycin Trough Level) 1 each 1X ONCE MC ; Start 06/25/19 at 17:30; Stop 06/25/19 at 11:44; Status DC Comment Review of Relevant I have reviewed the following items rosalina (where applicable) has been applied. RADHA WORRELL MD Jun 26, 2019 14:09
[2019-06-26] MEDS: GILENYA 0.5 MG PO SCH (16:28)
--- NOTE | 2019-06-26 17:41 | EEG ---
DATE OF SERVICE: 06/26/2019 EEG NUMBER: [id number]. OBJECTIVE: This is a 29-year-old male patient who had seizures that went to status epileptics on 06/23/2019. EEG was requested to evaluate seizure activity. METHODS: Twenty electrodes were applied according to the international 10-20 electrode placement system. EKG monitoring, hyperventilation, intermittent photic stimulation, monopolar and bipolar montages are routinely utilized. The record was obtained on a digital system with video monitoring. MEDICATIONS: Keppra, Ativan. FINDINGS: 1. Background: The patient was recorded in the awake, drowsy, and sleep states. The overall background amplitude is variable. No well-organized posterior dominant rhythm is observed. The overall background rhythm is with diffuse slowing and persistent epileptiform discharges. 2. Abnormalities: There are near generalized continued [id number] discharges about 2-3 Hz per second throughout the entire recording. No clinical seizure seen. 3. Activation: Hyperventilation was not performed because the patient was not able to follow the commands. Intermittent photic stimulation was performed with photic driving. IMPRESSION: This EEG is a remarkably abnormal study for the awake, drowsy, and sleep states. No posterior dominant rhythm is observed. The overall background rhythm is with persistent near generalized persistent epileptiform discharges throughout the entire recording. This pattern of EEG is suggestive of subclinical status epileptics. RADHA WORRELL MD DR: ABDIAZIZ/alfred JOB#: [id number] / [id number] JERZY
[2019-06-26] MEDS: ENOXAPARIN 40 MG/0.4 ML SYRINGE. SQ SCH (20:43)
[2019-06-26] MEDS: levETIRAcetam 1,000 MG in IV DEXTROSE 5% 100ML 100 ML IV SCH (20:58)
[2019-06-26] MEDS: LACOSAMIDE 200 MG in IV DEXTROSE 5% 50 ML IV SCH (20:59)
[2019-06-26] MEDS ORDERED: levETIRAcetam 500 MG TABLET PO SCH (21:00)
--- NOTE | 2019-06-26 21:33 | NUR ---
Pt. oriented to self only, reoriented frequently. Pt. very impulsive, attempting to get up from bed several times per hour. Within site of nurse station with curtain open. Bed alarm activated and additional Swift bed alarm placed.
[2019-06-27] VITALS (18 sets, daily range): BP systolic 121–152; BP diastolic 79–98
--- NOTE | 2019-06-27 08:03 | RAD ---
EXAM: Chest, single view. HISTORY: Mechanical ventilation. COMPARISON: 06/26/2019 FINDINGS: A frontal view of the chest is obtained. There is no infiltrate, pleural effusion or pneumothorax. The heart is normal in size. IMPRESSION: No acute pulmonary finding. Electronically signed by: Madie Goyal MD (06/27/2019 8:00 AM) [id number]
[2019-06-27] MEDS: GILENYA 0.5 MG PO SCH (08:50)
[2019-06-27] MEDS: OSELTAMIVIR 75 MG CAPSULE PO SCH ×2 (08:50→21:42)
[2019-06-27] MEDS: levETIRAcetam 1,000 MG in IV DEXTROSE 5% 100ML 100 ML IV SCH ×2 (08:52→22:41)
[2019-06-27] MEDS: LACOSAMIDE 200 MG in IV DEXTROSE 5% 50 ML IV SCH ×2 (08:52→22:41)
--- NOTE | 2019-06-27 10:46 | PDOC ---
PROGRESS NOTES Chief Complaint Chief Complaint impression status epilepticus MS exacerbation scattered multifocal moderate to severe T2 and FLAIR hyperintense signal abnormality of the supratentorial parenchyma bilaterally primarily centered in the white matter Influenza A (lab confirmed) Status epilepticus. acute Metabolic encephalopathy. post ictal Lactic acidosis secondary to seizures and increased work of breathing. fever. Leukocytosis. Positive influenza screen. acute hypoxic Respiratory failure. Metabolic encephalopathy. Fever Lactic acidosis. History of Present Illness History of Present Illness 06/24/2019 pt seen and examined family present at bedside, discussed pt care with them chart reviewed consulted with RN regarding pt care and treatment plan pt on ventilator AC 20/500/40% fiO2/ 5 peep pt currently on IC fluids reviewed imaging results with family and answered their questions 06/27/2019 examined in the ICU Chart reviewed D/W RN impulsive, still needs 1:1 sitter 34 min cc time General: Alert, no distress confused to details Lungs: Clear Abdomen: Normal bowel sounds, Soft, No tenderness, No hepatosplenomegaly, No masses Extremities: No clubbing, No cyanosis, No edema, Normal pulses, No tenderness/s welling Skin: No rashes, No breakdown, No significant lesion Vitals Vitals Vital Signs Date Time Temp Pulse Resp B/P (MAP) Pulse Ox O2 Delivery O2 Flow Rate FiO2 06/27/19 10:00 98.2 80 18 128/83 (98) 98 Room Air 2.0 98.2 Physical Exam Physical Exam General: Alert, moderate distress Lungs: Clear Abdomen: Normal bowel sounds, Soft, No tenderness, No hepatosplenomegaly, No masses Extremities: No clubbing, No cyanosis, No edema, Normal pulses, No tenderness/swelling Skin: No rashes, No breakdown, No significant lesion General: Alert, Cooperative, moderate distress Lungs: Clear Abdomen: Normal bowel sounds, Soft, No tenderness, No hepatosplenomegaly, No masses Extremities: No clubbing, No cyanosis, No edema, Normal pulses, No tenderness/swelling Skin: No rashes, No breakdown, No significant lesion Labs LABS EXAM: Chest, single view. HISTORY: Mechanical ventilation. COMPARISON: 06/26/2019 FINDINGS: A frontal view of the chest is obtained. There is no infiltrate, pleural effusion or pneumothorax. The heart is normal in size. IMPRESSION: No acute pulmonary finding. Electronically signed by: Madie Goyal MD (06/27/2019 8:00 AM) [id number] DICTATED and SIGNED BY: MADIE GOYAL MD DATE: 06/27/19 0800 Laboratory Tests Test 06/26/19 11:55 Creatinine 0.5 mg/dL (0.7-1.3) Estimated GFR (Cockcroft-Gault) 199.5 Assessment and Plan Assessmemt and Plan Problems Medical Problems: (1) Bandemia Status: Acute (2) Leukocytosis Status: Acute (3) Status epilepticus Status: Acute Comment Review of Relevant I have reviewed the following items rosalina (where applicable) has been applied. Labs Laboratory Tests Test 06/25/19 15:30 06/26/19 11:55 O2 Saturation 98 % (92-99) Arterial Blood pH 7.47 (7.35-7.45) Arterial Blood pCO2 at Patient Temp 36 mmHg (35-46) Arterial Blood pO2 at Patient Temp 141 mmHg (85-108) Arterial Blood HCO3 26 mmol/L (21-28) Arterial Blood Base Excess 2 mmol/L (-3-3) FiO2 40 Creatinine 0.5 mg/dL (0.7-1.3) Estimated GFR (Cockcroft-Gault) 199.5 Laboratory Tests Test 06/26/19 11:55 Creatinine 0.5 mg/dL (0.7-1.3) Estimated GFR (Cockcroft-Gault) 199.5 Microbiology 06/23/19 CSF Gram Stain - Final, Complete 06/23/19 Blood Culture - Preliminary, Resulted NO GROWTH AFTER 3 DAYS 06/23/19 Urine Culture - Final, Complete 06/23/19 Urine Culture Result 1 (VINAY) - Final, Complete Medications Current Medications Propofol 100 ml @ 0 mls/hr CONT PRN IV SEE PROTOCOL Last administered on 06/25/19at 07:19; Start 06/23/19 at 11:00 Chlorhexidine Gluconate (Peridex) 15 ml BID MM Last administered on 06/25/19at 09:35; Start 06/23/19 at 21:00; Stop 06/26/19 at 14:53; Status DC Midazolam HCl (Versed) 2 mg PRN Q30MIN PRN IV SEE COMMENTS. Last administered on 06/23/19at 16:13; Start 06/23/19 at 11:00 Sodium Chloride 1,000 ml @ 1,000 mls/hr 1X ONCE IV Last administered on 06/23/19at 11:23; Start 06/23/19 at 11:15; Stop 06/23/19 at 12:14; Status DC Propofol 50 ml @ As Directed STK-MED ONCE IV ; Start 06/23/19 at 11:06; Stop 06/23/19 at 11:06; Status DC Midazolam HCl 50 mg/Sodium Chloride 50 ml @ 1 mls/hr 1X ONCE IV Last administered on 06/23/19at 11:43; Start 06/23/19 at 11:15; Stop 06/25/19 at 13:14; Status DC Propofol 50 ml @ 0 mls/hr 1X ONCE IV Last administered on 06/23/19at 11:19; Start 06/23/19 at 11:30; Stop 06/23/19 at 11:31; Status DC Propofol 50 ml @ 0 mls/hr 1X ONCE IV Last administered on 06/23/19at 11:19; Start 06/23/19 at 11:30; Stop 06/23/19 at 11:31; Status DC Levetiracetam 1000 mg/Dextrose 110 ml @ 440 mls/hr 1X ONCE IV Last administered on 06/23/19at 12:19; Start 06/23/19 at 12:00; Stop 06/23/19 at 12:14; Status DC Lorazepam (Ativan Inj) 4 mg 1X ONCE IVP Last administered on 06/23/19at 11:59; Start 06/23/19 at 12:00; Stop 06/23/19 at 12:01; Status DC Lidocaine HCl (Lidocaine 1% 20ml Vial) 20 ml 1X ONCE INJ Last administered on 06/23/19at 15:00; Start 06/23/19 at 12:30; Stop 06/23/19 at 12:31; Status DC Sodium Chloride 1,000 ml @ 1,000 mls/hr 1X ONCE IV Last administered on 06/23/19at 13:24; Start 06/23/19 at 12:30; Stop 06/23/19 at 13:29; Status DC Midazolam HCl (Versed) 5 mg 1X ONCE IV Last administered on 06/23/19at 10:43; Start 06/23/19 at 13:15; Stop 06/23/19 at 13:16; Status DC Midazolam HCl (Versed) 5 mg 1X ONCE IV Last administered on 06/23/19at 10:49; Start 06/23/19 at 13:15; Stop 06/23/19 at 13:16; Status DC Rocuronium [place] (Zemuron) 50 mg 1X ONCE IV Last administered on 06/23/19at 10:50; Start 06/23/19 at 13:15; Stop 06/23/19 at 13:16; Status DC Lorazepam (Ativan Inj) 2 mg PRN Q1HR PRN IVP TREMORS Last administered on 06/23/19at 13:19; Start 06/23/19 at 13:30 Lorazepam (Ativan Inj) 4 mg 1X ONCE IVP Last administered on 06/23/19at 14:22; Start 06/23/19 at 14:30; Stop 06/23/19 at 14:31; Status DC Lorazepam 40 mg/ Sodium Chloride 270 ml @ 0 mls/hr CONT PRN IV SEE PROTOCOL Last administered on 06/23/19at 15:02; Start 06/23/19 at 14:30 Ceftriaxone Sodium (Rocephin) 2 gm 1X ONCE IVP Last administered on 06/23/19at 15:16; Start 06/23/19 at 14:30; Stop 06/23/19 at 14:31; Status DC Vancomycin HCl 2 gm/Sodium Chloride 500 ml @ 250 mls/hr 1X ONCE IV Last administered on 06/23/19at 17:27; Start 06/23/19 at 14:30; Stop 06/23/19 at 16:29; Status DC Dexamethasone Sodium Phosphate (Decadron) 10 mg 1X ONCE IVP Last administered on 06/23/19at 15:18; Start 06/23/19 at 14:30; Stop 06/23/19 at 14:31; Status DC Acyclovir Sodium 800 mg/Dextrose 116 ml @ 116 mls/hr 1X ONCE IV ; Start 06/23/19 at 14:30; Stop 06/23/19 at 14:36; Status DC Acyclovir Sodium 800 mg/Dextrose 266 ml @ 266 mls/hr 1X ONCE IV Last administered on 06/23/19at 15:18; Start 06/23/19 at 14:45; Stop 06/23/19 at 15:44; Status DC Ondansetron HCl (Zofran) 4 mg PRN Q8HRS PRN IV NAUSEA/VOMITING; Start 06/23/19 at 15:45; Stop 06/23/19 at 19:58; Status DC Fentanyl Citrate (Fentanyl 2ml Vial) 50 mcg PRN Q1HR PRN IV PAIN; Start 06/23/19 at 15:45; Stop 06/24/19 at 15:44; Status DC Sodium Chloride 1,000 ml @ 125 mls/hr 1X ONCE IV ; Start 06/23/19 at 15:45; Stop 06/23/19 at 23:44; Status DC Propofol 50 ml @ As Directed STK-MED ONCE IV ; Start 06/23/19 at 16:02; Stop 06/23/19 at 16:02; Status DC Levetiracetam 750 mg/Dextrose 107.5 ml @ 420 mls/hr Q12HR IV ; Start 06/23/19 at 17:00; Status Cancel Levetiracetam 750 mg/Dextrose 107.5 ml @ 420 mls/hr Q12HR IV Last administered on 06/26/19at 08:02; Start 06/23/19 at 21:00; Stop 06/26/19 at 14:05; Status DC Lorazepam (Ativan Inj) 2 mg 1X ONCE IVP ; Start 06/23/19 at 17:00; Stop 06/23/19 at 17:01; Status DC Propofol 50 ml @ As Directed STK-MED ONCE IV ; Start 06/23/19 at 17:35; Stop 06/23/19 at 17:35; Status DC Gadoterate Meglumine (Dotarem) 10 ml 1X ONCE IVP Last administered on 06/23/19at 18:50; Start 06/23/19 at 17:45; Stop 06/23/19 at 17:47; Status DC Gadoterate Meglumine (Dotarem) 10 ml 1X ONCE IVP Last administered on 06/23/19at 18:50; Start 06/23/19 at 17:45; Stop 06/23/19 at 17:47; Status DC Ondansetron HCl (Zofran) 4 mg PRN Q4HRS PRN IV NAUSEA/VOMITING; Start 06/23/19 at 20:00 Acyclovir Sodium 800 mg/Dextrose 266 ml @ 266 mls/hr Q8H IV Last administered on 06/26/19at 06:21; Start 06/23/19 at 23:00; Stop 06/26/19 at 14:47; Status DC Ceftriaxone Sodium (Rocephin) 2 gm Q24H IVP Last administered on 06/24/19at 13:40; Start 06/24/19 at 14:00; Stop 06/25/19 at 11:42; Status DC Vancomycin HCl (Vanco Per Pharmacy) 1 each PRN DAILY PRN MC SEE COMMENTS Last administered on 06/25/19at 10:52; Start 06/23/19 at 20:30; Stop 06/25/19 at 11:44; Status DC Vancomycin HCl 1.5 gm/Sodium Chloride 500 ml @ 250 mls/hr Q8H IV Last a dministered on 06/24/19at 17:00; Start 06/24/19 at 01:00; Stop 06/24/19 at 17:45; Status DC Vancomycin HCl (Vancomycin Trough Level) 1 each 1X ONCE MC ; Start 06/24/19 at 16:30; Stop 06/24/19 at 16:31; Status DC Oseltamivir Phosphate (Tamiflu Suspension) 75 mg BID PEG Last administered on 06/25/19at 22:09; Start 06/23/19 at 22:00; Stop 06/26/19 at 08:08; Status DC Acetaminophen (Tylenol) 650 mg PRN Q6HRS PRN NG MILD PAIN / TEMP Last administered on 06/24/19at 18:27; Start 06/24/19 at 08:00 Multivitamins/ Minerals Therapeutic (Centrum Multivit-Mineral Liq) 5 ml DAILY NG Last administered on 06/26/19at 08:02; Start 06/24/19 at 09:00; Stop 06/27/19 at 08:43; Status DC Enoxaparin Sodium (Lovenox 40mg Syringe) 40 mg Q24H SQ Last administered on 06/26/19at 20:43; Start 06/24/19 at 21:00 Vancomycin HCl 2 gm/Sodium Chloride 500 ml @ 250 mls/hr Q8H IV Last administered on 06/25/19at 09:35; Start 06/24/19 at 18:00; Stop 06/25/19 at 11:42; Status DC Vancomycin HCl (Vancomycin Trough Level) 1 each 1X ONCE MC ; Start 06/25/19 at 17:30; Stop 06/25/19 at 11:44; Status DC Oseltamivir Phosphate (Tamiflu) 75 mg BID PO Last administered on 06/27/19at 08:50; Start 06/26/19 at 09:00; Stop 06/28/19 at 09:01 Non-Formulary Medication 1 ea DAILY PO Last administered on 06/27/19at 08:50; Start 06/26/19 at 13:30 Levetiracetam (Keppra) 750 mg BID PO ; Start 06/26/19 at 21:00; Stop 06/26/19 at 17:04; Status DC Levetiracetam 1000 mg/Dextrose 110 ml @ 440 mls/hr Q12HR IV Last administered on 06/27/19at 08:52; Start 06/26/19 at 21:00 Lacosamide 200 mg/ Dextrose 70 ml @ 120 mls/hr BID IV Last administered on 06/27/19at 08:52; Start 06/26/19 at 21:00 Lorazepam (Ativan Inj) 2 mg BID IVP Last administered on 06/26/19at 20:43; Start 06/26/19 at 21:00 Multivitamins (Thera M Plus) 1 tab DAILY PO ; Start 06/27/19 at 09:00 Active Scripts Active Reported Gilenya (Fingolimod Hcl) 0.5 Mg Capsule 0.5 Mg PO DAILY Vitamin D3 (Cholecalciferol (Vitamin D3)) 5,000 Unit Tab.rapdis 1 Tab PO DAILY 30 Days Ginkgo Biloba Extract (Ginkgo Biloba [place] Extract) 60 Mg Capsule 60 Mg PO DAILY Divalproex Sodium 500 Mg Tablet.dr 500 Mg PO DAILY PRN Vitals/I & O Vital Sign - Last 24 Hours 06/26/19 06/26/19 06/26/19 06/26/19 11:00 12:00 12:00 14:00 Temp 98.8 98.8 Pulse 88 88 74 Resp 22 B/P (MAP) 142/103 (116) 154/86 (108) Pulse Ox 99 O2 Delivery Room Air Room Air Room Air Room Air 06/26/19 06/26/19 06/26/19 06/26/19 15:00 16:00 16:00 17:00 Temp 98.6 98.6 Pulse 82 84 88 Resp 20 18 30 B/P (MAP) 158/106 (123) Pulse Ox 98 O2 Delivery Room Air Room Air Room Air Room Air 06/26/19 06/26/19 06/26/19 06/26/19 19:00 20:00 20:00 21:00 Temp 98.7 98.7 Pulse 98 82 93 Resp 20 30 B/P (MAP) 139/87 (104) 134/90 (105) 130/86 (101) Pulse Ox 98 97 97 O2 Delivery Room Air Room Air Room Air Room Air 06/26/19 06/26/19 06/27/19 06/27/19 22:00 23:00 00:00 00:00 Temp 98.8 98.8 Pulse 83 111 88 Resp 18 27 B/P (MAP) 131/94 (106) 131/94 (106) 148/94 (112) Pulse Ox 97 99 O2 Delivery Room Air Room Air Room Air Room Air 06/27/19 06/27/19 06/27/19 06/27/19 01:00 02:00 03:00 04:00 Temp 98.3 98.3 Pulse 70 67 74 82 Resp 18 14 B/P (MAP) 142/98 (113) 145/92 (109) 135/79 (97) 138/93 (108) O2 Delivery Room Air Room Air Room Air Room Air 06/27/19 06/27/19 06/27/19 06/27/19 04:00 05:00 06:00 07:00 Temp 98.2 98.2 Pulse 69 90 80 Resp 19 18 B/P (MAP) 139/95 (110) 140/88 (105) 134/90 (105) Pulse Ox 99 99 O2 Delivery Room Air Room Air Room Air Room Air O2 Flow Rate 2.0 06/27/19 06/27/19 06/27/19 06/27/19 08:00 08:00 09:00 10:00 Temp 98.6 98.6 98.2 98.6 98.6 98.2 Pulse 75 76 80 Resp 18 18 18 B/P (MAP) 130/88 (102) 135/89 (104) 128/83 (98) Pulse Ox 99 98 98 O2 Delivery Room Air Room Air Room Air Room Air O2 Flow Rate 2.0 2.0 2.0 Intake and Output 06/26/19 06/26/19 06/27/19 15:00 23:00 07:00 Intake Total 500 ml Output Total 900 ml 230 ml 725 ml Balance -900 ml 270 ml -725 ml NAGA LING MD Jun 27, 2019 10:46
--- NOTE | 2019-06-27 10:52 | PDOC ---
PULMONARY PROGRESS NOTES Subjective EXTUBATED 06/25, improved mentation today on exam Vitals Vital Signs Date Time Temp Pulse Resp B/P (MAP) Pulse Ox O2 Delivery O2 Flow Rate FiO2 06/27/19 10:00 98.2 80 18 128/83 (98) 98 Room Air 2.0 98.2 ROS: No Nausea, No Chest Pain, No Abdominal Pain, No Increase Cough General: Alert, No acute distress Lungs: Clear Cardiovascular: S1 Abdomen: Soft Extremities: No Edema Skin: Warm Labs Laboratory Tests Test 06/25/19 15:30 06/26/19 11:55 O2 Saturation 98 % (92-99) Arterial Blood pH 7.47 (7.35-7.45) Arterial Blood pCO2 at Patient Temp 36 mmHg (35-46) Arterial Blood pO2 at Patient Temp 141 mmHg (85-108) Arterial Blood HCO3 26 mmol/L (21-28) Arterial Blood Base Excess 2 mmol/L (-3-3) FiO2 40 Creatinine 0.5 mg/dL (0.7-1.3) Estimated GFR (Cockcroft-Gault) 199.5 Laboratory Tests Test 06/26/19 11:55 Creatinine 0.5 mg/dL (0.7-1.3) Estimated GFR (Cockcroft-Gault) 199.5 Medications Active Scripts Medications Dose Route/Sig Max Daily Dose Days Date Category Gilenya (Fingolimod Hcl) 0.5 Mg Capsule 0.5 Mg PO DAILY 06/24/19 Reported Vitamin D3 (Cholecalciferol (Vitamin D3)) 5,000 Unit Tab.rapdis 1 Tab PO DAILY 30 06/24/19 Reported Ginkgo Biloba Extract (Ginkgo Biloba [place] Extract) 60 Mg Capsule 60 Mg PO DAILY 06/24/19 Reported Divalproex Sodium 500 Mg Tablet.dr 500 Mg PO DAILY PRN 06/24/19 Reported Impression . 1. Acute respiratory failure secondary to status epilepticus. extubated 06/25 2. Status epilepticus. 3. Metabolic encephalopathy. post ictal, improved 4. Lactic acidosis secondary to seizures and increased work of breathing. 5. fever. 6. Leukocytosis. 7. Positive influenza screen. 8. Status post LP with no organisms seen on Gram stain. Plan . Stable from pulmonary standpoint remains on R/A seizure precautions, no overnight seizures reported cont. tamiflu ,total course Follow neurology recs remains off antibiotics D/W GUICHO HOLM MD Jun 27, 2019 10:51
[2019-06-27] MEDS: MULTIVITAMIN with MINERAL TABLET. PO SCH (12:22)
[2019-06-27 15:42] LABS: BASO % 0 % (0-3); EOS # 0.1 x10^3/uL (0.0-0.7); EOS % 2 % (0-3); HEMATOCRIT 41.6 % (39.0-53.0); HEMOGLOBIN 14.6 g/dL (13.0-17.5); LYMPH # 0.4 x10^3/uL (1.0-4.8); LYMPH % 7 % (24-48); MEAN CORPUSCULAR HEMOGLOBIN 30 pg (25-35); MEAN CORPUSCULAR HGB CONC 35 g/dL (31-37); MEAN CORPUSCULAR VOLUME 86 fL (79-100); MONO # 0.8 x10^3/uL (0.0-1.1); MONO % 12 % (0-9); NEUT % 79 % (31-73); PLATELET COUNT 368 x10^3/uL (140-400); RED BLOOD COUNT 4.83 x10^6/uL (4.30-5.70); RED CELL DISTRIBUTION WIDTH 12.5 % (11.5-14.5); WHITE BLOOD COUNT 6.4 x10^3/uL (4.0-11.0)
[2019-06-27 15:44] LABS: ALBUMIN 3.5 g/dL (3.4-5.0); ALBUMIN/GLOBULIN RATIO 1.1 (1.0-1.7); CALCIUM 9.3 mg/dL (8.5-10.1); CREATININE 0.6 mg/dL (0.7-1.3); GFR 161.6; POTASSIUM 4.4 mmol/L (3.5-5.1); TOTAL BILIRUBIN 0.4 mg/dL (0.2-1.0); TOTAL PROTEIN 6.7 g/dL (6.4-8.2)
--- NOTE | 2019-06-27 20:27 | PDOC ---
PROGRESS NOTES Assessment Problems Medical Problems: (1) Bandemia Status: Acute (2) Leukocytosis Status: Acute (3) Status epilepticus Status: Acute Plan Seizures Influenza A. Metabolic encephalopathy. MS. Continue seizure meds No new clinical seizures Treat medical diseases. Seizure precautions Subjective Pt feeling better no acute Events. No clinical seizures. Objective Vital Signs Date Time Temp Pulse Resp B/P (MAP) Pulse Ox O2 Delivery O2 Flow Rate FiO2 06/27/19 19:12 98.6 80 18 125/86 (99) 97 Room Air 98.6 06/27/19 15:00 2.0 Intake and Output 06/27/19 07:00 Intake Total 500 ml Output Total 1855 ml Balance -1355 ml Intake Oral 500 ml Output Urine Total 1855 ml PHYSICAL EXAM PHYSICAL EXAMINATION: General appearance alert able to follow commands HEENT: Normocephalic and nontraumatic. Eyes, nose, ears, and throat are unremarkable. Neck is supple. No crepitus. Cardiovascular: S1, S2, regular rate and rhythm. Abdomen: Bowel sounds are positive. Extremities: No rash, lesions, or edema. No restriction of range of motion NEUROLOGICAL EXAMINATION: General appearance alert able to follow commands PERRL EOMI. CN: no focal findings elicited. Muscle tone: WNL Muscle strength: good DTR: 2 UE, 1+ at knee. Plantar reflex: Neutral response bilaterally Sensory exam: No acute abnormal findings. No other cerebellar signs elicited. Review of Relevant I have reviewed the following items rosalina (where applicable) has been applied. Labs Laboratory Tests Test 06/26/19 11:55 06/27/19 15:08 Creatinine 0.5 mg/dL (0.7-1.3) 0.6 mg/dL (0.7-1.3) Estimated GFR (Cockcroft-Gault) 199.5 161.6 White Blood Count 6.4 x10^3/uL (4.0-11.0) Red Blood Count 4.83 x10^6/uL (4.30-5.70) Hemoglobin 14.6 g/dL (13.0-17.5) Hematocrit 41.6 % (39.0-53.0) Mean Corpuscular Volume 86 fL (79-100) Mean Corpuscular Hemoglobin 30 pg (25-35) Mean Corpuscular Hemoglobin Concent 35 g/dL (31-37) Red Cell Distribution Width 12.5 % (11.5-14.5) Platelet Count 368 x10^3/uL (140-400) Neutrophils (%) (Auto) 79 % (31-73) Lymphocytes (%) (Auto) 7 % (24-48) Monocytes (%) (Auto) 12 % (0-9) Eosinophils (%) (Auto) 2 % (0-3) Basophils (%) (Auto) 0 % (0-3) Neutrophils # (Auto) 5.0 x10^3/uL (1.8-7.7) Lymphocytes # (Auto) 0.4 x10^3/uL (1.0-4.8) Monocytes # (Auto) 0.8 x10^3/uL (0.0-1.1) Eosinophils # (Auto) 0.1 x10^3/uL (0.0-0.7) Basophils # (Auto) 0.0 x10^3/uL (0.0-0.2) Sodium Level 142 mmol/L (136-145) Potassium Level 4.4 mmol/L (3.5-5.1) Chloride Level 104 mmol/L (98-107) Carbon Dioxide Level 25 mmol/L (21-32) Anion Gap 13 (6-14) Blood Urea Nitrogen 18 mg/dL (8-26) BUN/Creatinine Ratio 30 (6-20) Glucose Level 96 mg/dL (70-99) Calcium Level 9.3 mg/dL (8.5-10.1) Total Bilirubin 0.4 mg/dL (0.2-1.0) Aspartate Amino Transf (AST/SGOT) 39 U/L (15-37) Alanine Aminotransferase (ALT/SGPT) 80 U/L (16-63) Alkaline Phosphatase 52 U/L (46-116) Total Protein 6.7 g/dL (6.4-8.2) Albumin 3.5 g/dL (3.4-5.0) Albumin/Globulin Ratio 1.1 (1.0-1.7) Laboratory Tests Test 06/27/19 15:08 White Blood Count 6.4 x10^3/uL (4.0-11.0) Red Blood Count 4.83 x10^6/uL (4.30-5.70) Hemoglobin 14.6 g/dL (13.0-17.5) Hematocrit 41.6 % (39.0-53.0) Mean Corpuscular Volume 86 fL (79-100) Mean Corpuscular Hemoglobin 30 pg (25-35) Mean Corpuscular Hemoglobin Concent 35 g/dL (31-37) Red Cell Distribution Width 12.5 % (11.5-14.5) Platelet Count 368 x10^3/uL (140-400) Neutrophils (%) (Auto) 79 % (31-73) Lymphocytes (%) (Auto) 7 % (24-48) Monocytes (%) (Auto) 12 % (0-9) Eosinophils (%) (Auto) 2 % (0-3) Basophils (%) (Auto) 0 % (0-3) Neutrophils # (Auto) 5.0 x10^3/uL (1.8-7.7) Lymphocytes # (Auto) 0.4 x10^3/uL (1.0-4.8) Monocytes # (Auto) 0.8 x10^3/uL (0.0-1.1) Eosinophils # (Auto) 0.1 x10^3/uL (0.0-0.7) Basophils # (Auto) 0.0 x10^3/uL (0.0-0.2) Sodium Level 142 mmol/L (136-145) Potassium Level 4.4 mmol/L (3.5-5.1) Chloride Level 104 mmol/L (98-107) Carbon Dioxide Level 25 mmol/L (21-32) Anion Gap 13 (6-14) Blood Urea Nitrogen 18 mg/dL (8-26) Creatinine 0.6 mg/dL (0.7-1.3) Estimated GFR (Cockcroft-Gault) 161.6 BUN/Creatinine Ratio 30 (6-20) Glucose Level 96 mg/dL (70-99) Calcium Level 9.3 mg/dL (8.5-10.1) Total Bilirubin 0.4 mg/dL (0.2-1.0) Aspartate Amino Transf (AST/SGOT) 39 U/L (15-37) Alanine Aminotransferase (ALT/SGPT) 80 U/L (16-63) Alkaline Phosphatase 52 U/L (46-116) Total Protein 6.7 g/dL (6.4-8.2) Albumin 3.5 g/dL (3.4-5.0) Albumin/Globulin Ratio 1.1 (1.0-1.7) Microbiology 06/23/19 CSF Gram Stain - Final, Complete 06/23/19 Blood Culture - Preliminary, Resulted NO GROWTH AFTER 4 DAYS 06/23/19 Urine Culture - Final, Complete 06/23/19 Urine Culture Result 1 (VINAY) - Final, Complete Medications Current Medications Propofol 100 ml @ 0 mls/hr CONT PRN IV SEE PROTOCOL Last administered on 06/25/19at 07:19; Start 06/23/19 at 11:00 Chlorhexidine Gluconate (Peridex) 15 ml BID MM Last administered on 06/25/19at 09:35; Start 06/23/19 at 21:00; Stop 06/26/19 at 14:53; Status DC Midazolam HCl (Versed) 2 mg PRN Q30MIN PRN IV SEE COMMENTS. Last administered on 06/23/19at 16:13; Start 06/23/19 at 11:00 Sodium Chloride 1,000 ml @ 1,000 mls/hr 1X ONCE IV Last administered on 06/23/19at 11:23; Start 06/23/19 at 11:15; Stop 06/23/19 at 12:14; Status DC Propofol 50 ml @ As Directed STK-MED ONCE IV ; Start 06/23/19 at 11:06; Stop 06/23/19 at 11:06; Status DC Midazolam HCl 50 mg/Sodium Chloride 50 ml @ 1 mls/hr 1X ONCE IV Last administered on 06/23/19at 11:43; Start 06/23/19 at 11:15; Stop 06/25/19 at 13:14; Status DC Propofol 50 ml @ 0 mls/hr 1X ONCE IV Last administered on 06/23/19at 11:19; Start 06/23/19 at 11:30; Stop 06/23/19 at 11:31; Status DC Propofol 50 ml @ 0 mls/hr 1X ONCE IV Last administered on 06/23/19at 11:19; Start 06/23/19 at 11:30; Stop 06/23/19 at 11:31; Status DC Levetiracetam 1000 mg/Dextrose 110 ml @ 440 mls/hr 1X ONCE IV Last administered on 06/23/19at 12:19; Start 06/23/19 at 12:00; Stop 06/23/19 at 12:14; Status DC Lorazepam (Ativan Inj) 4 mg 1X ONCE IVP Last administered on 06/23/19at 11:59; Start 06/23/19 at 12:00; Stop 06/23/19 at 12:01; Status DC Lidocaine HCl (Lidocaine 1% 20ml Vial) 20 ml 1X ONCE INJ Last administered on 06/23/19at 15:00; Start 06/23/19 at 12:30; Stop 06/23/19 at 12:31; Status DC Sodium Chloride 1,000 ml @ 1,000 mls/hr 1X ONCE IV Last administered on 06/23/19at 13:24; Start 06/23/19 at 12:30; Stop 06/23/19 at 13:29; Status DC Midazolam HCl (Versed) 5 mg 1X ONCE IV Last administered on 06/23/19at 10:43; Start 06/23/19 at 13:15; Stop 06/23/19 at 13:16; Status DC Midazolam HCl (Versed) 5 mg 1X ONCE IV Last administered on 06/23/19at 10:49; Start 06/23/19 at 13:15; Stop 06/23/19 at 13:16; Status DC Rocuronium [place] (Zemuron) 50 mg 1X ONCE IV Last administered on 06/23/19at 10:50; Start 06/23/19 at 13:15; Stop 06/23/19 at 13:16; Status DC Lorazepam (Ativan Inj) 2 mg PRN Q1HR PRN IVP TREMORS Last administered on 06/23/19at 13:19; Start 06/23/19 at 13:30 Lorazepam (Ativan Inj) 4 mg 1X ONCE IVP Last administered on 06/23/19at 14:22; Start 06/23/19 at 14:30; Stop 06/23/19 at 14:31; Status DC Lorazepam 40 mg/ Sodium Chloride 270 ml @ 0 mls/hr CONT PRN IV SEE PROTOCOL Last administered on 06/23/19at 15:02; Start 06/23/19 at 14:30 Ceftriaxone Sodium (Rocephin) 2 gm 1X ONCE IVP Last administered on 06/23/19at 15:16; Start 2/18/20 at 14:30; Stop 06/23/19 at 14:31; Status DC Vancomycin HCl 2 gm/Sodium Chloride 500 ml @ 250 mls/hr 1X ONCE IV Last administered on 06/23/19at 17:27; Start 06/23/19 at 14:30; Stop 06/23/19 at 16:29; Status DC Dexamethasone Sodium Phosphate (Decadron) 10 mg 1X ONCE IVP Last administered on 06/23/19at 15:18; Start 06/23/19 at 14:30; Stop 06/23/19 at 14:31; Status DC Acyclovir Sodium 800 mg/Dextrose 116 ml @ 116 mls/hr 1X ONCE IV ; Start 06/23/19 at 14:30; Stop 06/23/19 at 14:36; Status DC Acyclovir Sodium 800 mg/Dextrose 266 ml @ 266 mls/hr 1X ONCE IV Last administered on 06/23/19at 15:18; Start 06/23/19 at 14:45; Stop 06/23/19 at 15:44; Status DC Ondansetron HCl (Zofran) 4 mg PRN Q8HRS PRN IV NAUSEA/VOMITING; Start 06/23/19 at 15:45; Stop 06/23/19 at 19:58; Status DC Fentanyl Citrate (Fentanyl 2ml Vial) 50 mcg PRN Q1HR PRN IV PAIN; Start 06/23/19 at 15:45; Stop 06/24/19 at 15:44; Status DC Sodium Chloride 1,000 ml @ 125 mls/hr 1X ONCE IV ; Start 06/23/19 at 15:45; Stop 06/23/19 at 23:44; Status DC Propofol 50 ml @ As Directed STK-MED ONCE IV ; Start 06/23/19 at 16:02; Stop 06/23/19 at 16:02; Status DC Levetiracetam 750 mg/Dextrose 107.5 ml @ 420 mls/hr Q12HR IV ; Start 06/23/19 at 17:00; Status Cancel Levetiracetam 750 mg/Dextrose 107.5 ml @ 420 mls/hr Q12HR IV Last administered on 06/26/19at 08:02; Start 06/23/19 at 21:00; Stop 06/26/19 at 14:05; Status DC Lorazepam (Ativan Inj) 2 mg 1X ONCE IVP ; Start 06/23/19 at 17:00; Stop 06/23/19 at 17:01; Status DC Propofol 50 ml @ As Directed STK-MED ONCE IV ; Start 06/23/19 at 17:35; Stop 06/23/19 at 17:35; Status DC Gadoterate Meglumine (Dotarem) 10 ml 1X ONCE IVP Last administered on 06/23/19at 18:50; Start 06/23/19 at 17:45; Stop 06/23/19 at 17:47; Status DC Gadoterate Meglumine (Dotarem) 10 ml 1X ONCE IVP Last administered on 06/23/19at 18:50; Start 06/23/19 at 17:45; Stop 06/23/19 at 17:47; Status DC Ondansetron HCl (Zofran) 4 mg PRN Q4HRS PRN IV NAUSEA/VOMITING; Start 06/23/19 at 20:00 Acyclovir Sodium 800 mg/Dextrose 266 ml @ 266 mls/hr Q8H IV Last administered on 06/26/19at 06:21; Start 06/23/19 at 23:00; Stop 06/26/19 at 14:47; Status DC Ceftriaxone Sodium (Rocephin) 2 gm Q24H IVP Last administered on 06/24/19at 13:40; Start 06/24/19 at 14:00; Stop 06/25/19 at 11:42; Status DC Vancomycin HCl (Vanco Per Pharmacy) 1 each PRN DAILY PRN MC SEE COMMENTS Last administered on 06/25/19at 10:52; Start 06/23/19 at 20:30; Stop 06/25/19 at 11:44; Status DC Vancomycin HCl 1.5 gm/Sodium Chloride 500 ml @ 250 mls/hr Q8H IV Last administered on 06/24/19at 17:00; Start 06/24/19 at 01:00; Stop 06/24/19 at 17:45; Status DC Vancomycin HCl (Vancomycin Trough Level) 1 each 1X ONCE MC ; Start 06/24/19 at 16:30; Stop 06/24/19 at 16:31; Status DC Oseltamivir Phosphate (Tamiflu Suspension) 75 mg BID PEG Last administered on 06/25/19at 22:09; Start 06/23/19 at 22:00; Stop 06/26/19 at 08:08; Status DC Acetaminophen (Tylenol) 650 mg PRN Q6HRS PRN NG MILD PAIN / TEMP Last administered on 06/24/19at 18:27; Start 06/24/19 at 08:00 Multivitamins/ Minerals Therapeutic (Centrum Multivit-Mineral Liq) 5 ml DAILY NG Last administered on 06/26/19at 08:02; Start 06/24/19 at 09:00; Stop 06/27/19 at 08:43; Status DC Enoxaparin Sodium (Lovenox 40mg Syringe) 40 mg Q24H SQ Last administered on 06/26/19at 20:43; Start 06/24/19 at 21:00 Vancomycin HCl 2 gm/Sodium Chloride 500 ml @ 250 mls/hr Q8H IV Last administered on 06/25/19at 09:35; Start 06/24/19 at 18:00; Stop 06/25/19 at 11:42; Status DC Vancomycin HCl (Vancomycin Trough Level) 1 each 1X ONCE MC ; Start 06/25/19 at 17:30; Stop 06/25/19 at 11:44; Status DC Oseltamivir Phosphate (Tamiflu) 75 mg BID PO Last administered on 06/27/19at 08:50; Start 06/26/19 at 09:00; Stop 06/28/19 at 09:01 Non-Formulary Medication 1 ea DAILY PO Last administered on 06/27/19at 08:50; Start 06/26/19 at 13:30 Levetiracetam (Keppra) 750 mg BID PO ; Start 06/26/19 at 21:00; Stop 06/26/19 at 17:04; Status DC Levetiracetam 1000 mg/Dextrose 110 ml @ 440 mls/hr Q12HR IV Last administered on 06/27/19at 08:52; Start 06/26/19 at 21:00 Lacosamide 200 mg/ Dextrose 70 ml @ 120 mls/hr BID IV Last administered on 06/27/19at 08:52; Start 06/26/19 at 21:00 Lorazepam (Ativan Inj) 2 mg BID IVP Last administered on 06/26/19at 20:43; Start 06/26/19 at 21:00 Multivitamins (Thera M Plus) 1 tab DAILY PO Last administered on 06/27/19at 12:22; Start 06/27/19 at 09:00 Active Scripts Active Reported Gilenya (Fingolimod Hcl) 0.5 Mg Capsule 0.5 Mg PO DAILY Vitamin D3 (Cholecalciferol (Vitamin D3)) 5,000 Unit Tab.rapdis 1 Tab PO DAILY 30 Days Ginkgo Biloba Extract (Ginkgo Biloba [place] Extract) 60 Mg Capsule 60 Mg PO DAILY Divalproex Sodium 500 Mg Tablet.dr 500 Mg PO DAILY PRN Vitals/I & O Vital Sign - Last 24 Hours 06/26/19 06/26/19 06/26/19 06/27/19 21:00 22:00 23:00 00:00 Temp 98.8 98.8 Pulse 93 83 111 88 Resp 30 18 18 27 B/P (MAP) 130/86 (101) 131/94 (106) 131/94 (106) 148/94 (112) Pulse Ox 97 97 99 O2 Delivery Room Air Room Air Room Air Room Air 06/27/19 06/27/19 06/27/19 06/27/19 00:00 01:00 02:00 03:00 Pulse 70 67 74 Resp 23 25 18 B/P (MAP) 142/98 (113) 145/92 (109) 135/79 (97) O2 Delivery Room Air Room Air Room Air Room Air 06/27/19 06/27/19 06/27/19 06/27/19 04:00 04:00 05:00 06:00 Temp 98.3 98.3 Pulse 82 69 90 Resp 14 14 19 B/P (MAP) 138/93 (108) 139/95 (110) 140/88 (105) Pulse Ox 99 O2 Delivery Room Air Room Air Room Air Room Air 06/27/19 06/27/19 06/27/19 06/27/19 07:00 08:00 08:00 09:00 Temp 98.2 98.6 98.6 98.2 98.6 98.6 Pulse 80 75 76 Resp 18 18 18 B/P (MAP) 134/90 (105) 130/88 (102) 135/89 (104) Pulse Ox 99 99 98 O2 Delivery Room Air Room Air Room Air Room Air O2 Flow Rate 2.0 2.0 2.0 2/2206/27/19 06/27/19 06/27/19 10:00 11:00 12:00 12:00 Temp 98.2 98.2 98.2 98.2 98.2 98.2 Pulse 80 81 78 Resp 18 18 18 B/P (MAP) 128/83 (98) 152/93 (112) 121/98 (106) Pulse Ox 98 99 99 O2 Delivery Room Air Room Air Room Air Room Air O2 Flow Rate 2.0 2.0 2.0 06/27/19 06/27/19 06/27/19 06/27/19 13:00 14:00 15:00 19:12 Temp 98.2 98.4 98.4 98.6 98.2 98.4 98.4 98.6 Pulse 73 72 75 80 Resp 18 18 18 18 B/P (MAP) 149/95 (113) 139/93 (108) 150/90 (110) 125/86 (99) Pulse Ox 99 98 99 97 O2 Delivery Room Air Room Air Room Air Room Air O2 Flow Rate 2.0 2.0 2.0 Intake and Output 06/26/19 06/26/19 06/27/19 15:00 23:00 07:00 Intake Total 500 ml Output Total 900 ml 230 ml 725 ml Balance -900 ml 270 ml -725 ml GUICHO GEE MD Jun 27, 2019 20:27
[2019-06-27] MEDS: ENOXAPARIN 40 MG/0.4 ML SYRINGE. SQ SCH (21:43)
[2019-06-28] VITALS (7 sets, daily range): BP systolic 117–163; BP diastolic 73–99
[2019-06-28] MEDS: GILENYA 0.5 MG PO SCH (08:31)
[2019-06-28] MEDS: MULTIVITAMIN with MINERAL TABLET. PO SCH (08:32)
[2019-06-28] MEDS: OSELTAMIVIR 75 MG CAPSULE PO SCH (08:32)
[2019-06-28] MEDS: levETIRAcetam 1,000 MG in IV DEXTROSE 5% 100ML 100 ML IV SCH (08:43)
[2019-06-28] MEDS: LACOSAMIDE 200 MG in IV DEXTROSE 5% 50 ML IV SCH (08:44)
--- NOTE | 2019-06-28 08:59 | PDOC ---
PROGRESS NOTES Chief Complaint Chief Complaint impression status epilepticus MS exacerbation scattered multifocal moderate to severe T2 and FLAIR hyperintense signal abnormality of the supratentorial parenchyma bilaterally primarily centered in the white matter Influenza A (lab confirmed) Status epilepticus. acute Metabolic encephalopathy. post ictal Lactic acidosis secondary to seizures and increased work of breathing. fever. Leukocytosis. Positive influenza screen. acute hypoxic Respiratory failure. Metabolic encephalopathy. Fever resolved History of Present Illness History of Present Illness Patient with no acute events overnight, patient denies fever chills, no further seizure activity, reassurance provided no concerns during my visit. Vitals Vitals Vital Signs Date Time Temp Pulse Resp B/P (MAP) Pulse Ox O2 Delivery O2 Flow Rate FiO2 06/28/19 08:00 Room Air 06/28/19 07:05 98.4 94 18 123/81 (95) 95 98.4 06/27/19 15:00 2.0 Physical Exam Physical Exam General: Alert, moderate distress Lungs: Clear Abdomen: Normal bowel sounds, Soft, No tenderness, No hepatosplenomegaly, No masses Extremities: No clubbing, No cyanosis, No edema, Normal pulses, No tenderness/swelling Skin: No rashes, No breakdown, No significant lesion General: Alert, Cooperative, moderate distress Lungs: Clear Abdomen: Normal bowel sounds, Soft, No tenderness, No hepatosplenomegaly, No masses Extremities: No clubbing, No cyanosis, No edema, Normal pulses, No tenderness/swelling Skin: No rashes, No breakdown, No significant lesion Labs LABS Laboratory Tests Test 06/27/19 15:08 White Blood Count 6.4 x10^3/uL (4.0-11.0) Red Blood Count 4.83 x10^6/uL (4.30-5.70) Hemoglobin 14.6 g/dL (13.0-17.5) Hematocrit 41.6 % (39.0-53.0) Mean Corpuscular Volume 86 fL (79-100) Mean Corpuscular Hemoglobin 30 pg (25-35) Mean Corpuscular Hemoglobin Concent 35 g/dL (31-37) Red Cell Distribution Width 12.5 % (11.5-14.5) Platelet Count 368 x10^3/uL (140-400) Neutrophils (%) (Auto) 79 % (31-73) Lymphocytes (%) (Auto) 7 % (24-48) Monocytes (%) (Auto) 12 % (0-9) Eosinophils (%) (Auto) 2 % (0-3) Basophils (%) (Auto) 0 % (0-3) Neutrophils # (Auto) 5.0 x10^3/uL (1.8-7.7) Lymphocytes # (Auto) 0.4 x10^3/uL (1.0-4.8) Monocytes # (Auto) 0.8 x10^3/uL (0.0-1.1) Eosinophils # (Auto) 0.1 x10^3/uL (0.0-0.7) Basophils # (Auto) 0.0 x10^3/uL (0.0-0.2) Sodium Level 142 mmol/L (136-145) Potassium Level 4.4 mmol/L (3.5-5.1) Chloride Level 104 mmol/L (98-107) Carbon Dioxide Level 25 mmol/L (21-32) Anion Gap 13 (6-14) Blood Urea Nitrogen 18 mg/dL (8-26) Creatinine 0.6 mg/dL (0.7-1.3) Estimated GFR (Cockcroft-Gault) 161.6 BUN/Creatinine Ratio 30 (6-20) Glucose Level 96 mg/dL (70-99) Calcium Level 9.3 mg/dL (8.5-10.1) Total Bilirubin 0.4 mg/dL (0.2-1.0) Aspartate Amino Transf (AST/SGOT) 39 U/L (15-37) Alanine Aminotransferase (ALT/SGPT) 80 U/L (16-63) Alkaline Phosphatase 52 U/L (46-116) Total Protein 6.7 g/dL (6.4-8.2) Albumin 3.5 g/dL (3.4-5.0) Albumin/Globulin Ratio 1.1 (1.0-1.7) Assessment and Plan Assessmemt and Plan Problems Medical Problems: (1) Bandemia Status: Acute (2) Leukocytosis Status: Acute (3) Status epilepticus Status: Acute Comment Review of Relevant I have reviewed the following items rosalina (where applicable) has been applied. Labs Laboratory Tests Test 06/26/19 11:55 06/27/19 15:08 Creatinine 0.5 mg/dL (0.7-1.3) 0.6 mg/dL (0.7-1.3) Estimated GFR (Cockcroft-Gault) 199.5 161.6 White Blood Count 6.4 x10^3/uL (4.0-11.0) Red Blood Count 4.83 x10^6/uL (4.30-5.70) Hemoglobin 14.6 g/dL (13.0-17.5) Hematocrit 41.6 % (39.0-53.0) Mean Corpuscular Volume 86 fL (79-100) Mean Corpuscular Hemoglobin 30 pg (25-35) Mean Corpuscular Hemoglobin Concent 35 g/dL (31-37) Red Cell Distribution Width 12.5 % (11.5-14.5) Platelet Count 368 x10^3/uL (140-400) Neutrophils (%) (Auto) 79 % (31-73) Lymphocytes (%) (Auto) 7 % (24-48) Monocytes (%) (Auto) 12 % (0-9) Eosinophils (%) (Auto) 2 % (0-3) Basophils (%) (Auto) 0 % (0-3) Neutrophils # (Auto) 5.0 x10^3/uL (1.8-7.7) Lymphocytes # (Auto) 0.4 x10^3/uL (1.0-4.8) Monocytes # (Auto) 0.8 x10^3/uL (0.0-1.1) Eosinophils # (Auto) 0.1 x10^3/uL (0.0-0.7) Basophils # (Auto) 0.0 x10^3/uL (0.0-0.2) Sodium Level 142 mmol/L (136-145) Potassium Level 4.4 mmol/L (3.5-5.1) Chloride Level 104 mmol/L (98-107) Carbon Dioxide Level 25 mmol/L (21-32) Anion Gap 13 (6-14) Blood Urea Nitrogen 18 mg/dL (8-26) BUN/Creatinine Ratio 30 (6-20) Glucose Level 96 mg/dL (70-99) Calcium Level 9.3 mg/dL (8.5-10.1) Total Bilirubin 0.4 mg/dL (0.2-1.0) Aspartate Amino Transf (AST/SGOT) 39 U/L (15-37) Alanine Aminotransferase (ALT/SGPT) 80 U/L (16-63) Alkaline Phosphatase 52 U/L (46-116) Total Protein 6.7 g/dL (6.4-8.2) Albumin 3.5 g/dL (3.4-5.0) Albumin/Globulin Ratio 1.1 (1.0-1.7) Laboratory Tests Test 06/27/19 15:08 White Blood Count 6.4 x10^3/uL (4.0-11.0) Red Blood Count 4.83 x10^6/uL (4.30-5.70) Hemoglobin 14.6 g/dL (13.0-17.5) Hematocrit 41.6 % (39.0-53.0) Mean Corpuscular Volume 86 fL (79-100) Mean Corpuscular Hemoglobin 30 pg (25-35) Mean Corpuscular Hemoglobin Concent 35 g/dL (31-37) Red Cell Distribution Width 12.5 % (11.5-14.5) Platelet Count 368 x10^3/uL (140-400) Neutrophils (%) (Auto) 79 % (31-73) Lymphocytes (%) (Auto) 7 % (24-48) Monocytes (%) (Auto) 12 % (0-9) Eosinophils (%) (Auto) 2 % (0-3) Basophils (%) (Auto) 0 % (0-3) Neutrophils # (Auto) 5.0 x10^3/uL (1.8-7.7) Lymphocytes # (Auto) 0.4 x10^3/uL (1.0-4.8) Monocytes # (Auto) 0.8 x10^3/uL (0.0-1.1) Eosinophils # (Auto) 0.1 x10^3/uL (0.0-0.7) Basophils # (Auto) 0.0 x10^3/uL (0.0-0.2) Sodium Level 142 mmol/L (136-145) Potassium Level 4.4 mmol/L (3.5-5.1) Chloride Level 104 mmol/L (98-107) Carbon Dioxide Level 25 mmol/L (21-32) Anion Gap 13 (6-14) Blood Urea Nitrogen 18 mg/dL (8-26) Creatinine 0.6 mg/dL (0.7-1.3) Estimated GFR (Cockcroft-Gault) 161.6 BUN/Creatinine Ratio 30 (6-20) Glucose Level 96 mg/dL (70-99) Calcium Level 9.3 mg/dL (8.5-10.1) Total Bilirubin 0.4 mg/dL (0.2-1.0) Aspartate Amino Transf (AST/SGOT) 39 U/L (15-37) Alanine Aminotransferase (ALT/SGPT) 80 U/L (16-63) Alkaline Phosphatase 52 U/L (46-116) Total Protein 6.7 g/dL (6.4-8.2) Albumin 3.5 g/dL (3.4-5.0) Albumin/Globulin Ratio 1.1 (1.0-1.7) Microbiology 06/23/19 CSF Gram Stain - Final, Complete 06/23/19 Blood Culture - Preliminary, Resulted NO GROWTH AFTER 4 DAYS 06/23/19 Urine Culture - Final, Complete 06/23/19 Urine Culture Result 1 (VINAY) - Final, Complete Medications Current Medications Propofol 100 ml @ 0 mls/hr CONT PRN IV SEE PROTOCOL Last administered on 06/25/19at 07:19; Start 06/23/19 at 11:00; Stop 06/28/19 at 08:39; Status DC Chlorhexidine Gluconate (Peridex) 15 ml BID MM Last administered on 06/25/19at 09:35; Start 06/23/19 at 21:00; Stop 06/26/19 at 14:53; Status DC Midazolam HCl (Versed) 2 mg PRN Q30MIN PRN IV SEE COMMENTS. Last administered on 06/23/19at 16:13; Start 06/23/19 at 11:00; Stop 06/28/19 at 08:38; Status DC Sodium Chloride 1,000 ml @ 1,000 mls/hr 1X ONCE IV Last administered on 06/23/19at 11:23; Start 06/23/19 at 11:15; Stop 06/23/19 at 12:14; Status DC Propofol 50 ml @ As Directed STK-MED ONCE IV ; Start 06/23/19 at 11:06; Stop 06/23/19 at 11:06; Status DC Midazolam HCl 50 mg/Sodium Chloride 50 ml @ 1 mls/hr 1X ONCE IV Last administered on 06/23/19at 11:43; Start 06/23/19 at 11:15; Stop 06/25/19 at 13:14; Status DC Propofol 50 ml @ 0 mls/hr 1X ONCE IV Last administered on 06/23/19at 11:19; Start 06/23/19 at 11:30; Stop 06/23/19 at 11:31; Status DC Propofol 50 ml @ 0 mls/hr 1X ONCE IV Last administered on 06/23/19at 11:19; Start 06/23/19 at 11:30; Stop 06/23/19 at 11:31; Status DC Levetiracetam 1000 mg/Dextrose 110 ml @ 440 mls/hr 1X ONCE IV Last administered on 06/23/19at 12:19; Start 06/23/19 at 12:00; Stop 06/23/19 at 12:14; Status DC Lorazepam (Ativan Inj) 4 mg 1X ONCE IVP Last administered on 06/23/19at 11:59; Start 06/23/19 at 12:00; Stop 06/23/19 at 12:01; Status DC Lidocaine HCl (Lidocaine 1% 20ml Vial) 20 ml 1X ONCE INJ Last administered on 06/23/19at 15:00; Start 06/23/19 at 12:30; Stop 06/23/19 at 12:31; Status DC Sodium Chloride 1,000 ml @ 1,000 mls/hr 1X ONCE IV Last administered on 06/23/19at 13:24; Start 06/23/19 at 12:30; Stop 06/23/19 at 13:29; Status DC Midazolam HCl (Versed) 5 mg 1X ONCE IV Last administered on 06/23/19at 10:43; Start 06/23/19 at 13:15; Stop 06/23/19 at 13:16; Status DC Midazolam HCl (Versed) 5 mg 1X ONCE IV Last administered on 06/23/19at 10:49; Start 06/23/19 at 13:15; Stop 06/23/19 at 13:16; Status DC Rocuronium [place] (Zemuron) 50 mg 1X ONCE IV Last administered on 06/23/19at 10:50; Start 06/23/19 at 13:15; Stop 06/23/19 at 13:16; Status DC Lorazepam (Ativan Inj) 2 mg PRN Q1HR PRN IVP TREMORS Last administered on 06/23/19at 13:19; Start 06/23/19 at 13:30 Lorazepam (Ativan Inj) 4 mg 1X ONCE IVP Last administered on 06/23/19at 14:22; Start 06/23/19 at 14:30; Stop 06/23/19 at 14:31; Status DC Lorazepam 40 mg/ Sodium Chloride 270 ml @ 0 mls/hr CONT PRN IV SEE PROTOCOL Last administered on 06/23/19at 15:02; Start 06/23/19 at 14:30; Stop 06/28/19 at 08:37; Status DC Ceftriaxone Sodium (Rocephin) 2 gm 1X ONCE IVP Last administered on 06/23/19at 15:16; Start 06/23/19 at 14:30; Stop 06/23/19 at 14:31; Status DC Vancomycin HCl 2 gm/Sodium Chloride 500 ml @ 250 mls/hr 1X ONCE IV Last administered on 06/23/19at 17:27; Start 06/23/19 at 14:30; Stop 06/23/19 at 16:29; Status DC Dexamethasone Sodium Phosphate (Decadron) 10 mg 1X ONCE IVP Last administered on 06/23/19at 15:18; Start 06/23/19 at 14:30; Stop 06/23/19 at 14:31; Status DC Acyclovir Sodium 800 mg/Dextrose 116 ml @ 116 mls/hr 1X ONCE IV ; Start 06/23/19 at 14:30; Stop 06/23/19 at 14:36; Status DC Acyclovir Sodium 800 mg/Dextrose 266 ml @ 266 mls/hr 1X ONCE IV Last administered on 06/23/19at 15:18; Start 06/23/19 at 14:45; Stop 06/23/19 at 15:44; Status DC Ondansetron HCl (Zofran) 4 mg PRN Q8HRS PRN IV NAUSEA/VOMITING; Start 06/23/19 at 15:45; Stop 06/23/19 at 19:58; Status DC Fentanyl Citrate (Fentanyl 2ml Vial) 50 mcg PRN Q1HR PRN IV PAIN; Start 06/23/19 at 15:45; Stop 06/24/19 at 15:44; Status DC Sodium Chloride 1,000 ml @ 125 mls/hr 1X ONCE IV ; Start 06/23/19 at 15:45; Stop 06/23/19 at 23:44; Status DC Propofol 50 ml @ As Directed STK-MED ONCE IV ; Start 06/23/19 at 16:02; Stop 06/23/19 at 16:02; Status DC Levetiracetam 750 mg/Dextrose 107.5 ml @ 420 mls/hr Q12HR IV ; Start 06/23/19 at 17:00; Status Cancel Levetiracetam 750 mg/Dextrose 107.5 ml @ 420 mls/hr Q12HR IV Last administered on 06/26/19at 08:02; Start 06/23/19 at 21:00; Stop 06/26/19 at 14:05; Status DC Lorazepam (Ativan Inj) 2 mg 1X ONCE IVP ; Start 06/23/19 at 17:00; Stop 06/23/19 at 17:01; Status DC Propofol 50 ml @ As Directed STK-MED ONCE IV ; Start 06/23/19 at 17:35; Stop 06/23/19 at 17:35; Status DC Gadoterate Meglumine (Dotarem) 10 ml 1X ONCE IVP Last administered on 06/23/19at 18:50; Start 06/23/19 at 17:45; Stop 06/23/19 at 17:47; Status DC Gadoterate Meglumine (Dotarem) 10 ml 1X ONCE IVP Last administered on 06/23/19at 18:50; Start 06/23/19 at 17:45; Stop 06/23/19 at 17:47; Status DC Ondansetron HCl (Zofran) 4 mg PRN Q4HRS PRN IV NAUSEA/VOMITING; Start 06/23/19 at 20:00 Acyclovir Sodium 800 mg/Dextrose 266 ml @ 266 mls/hr Q8H IV Last administered on 06/26/19at 06:21; Start 06/23/19 at 23:00; Stop 06/26/19 at 14:47; Status DC Ceftriaxone Sodium (Rocephin) 2 gm Q24H IVP Last administered on 06/24/19at 13:40; Start 06/24/19 at 14:00; Stop 06/25/19 at 11:42; Status DC Vancomycin HCl (Vanco Per Pharmacy) 1 each PRN DAILY PRN MC SEE COMMENTS Last administered on 06/25/19at 10:52; Start 06/23/19 at 20:30; Stop 06/25/19 at 11:44; Status DC Vancomycin HCl 1.5 gm/Sodium Chloride 500 ml @ 250 mls/hr Q8H IV Last administered on 06/24/19at 17:00; Start 06/24/19 at 01:00; Stop 06/24/19 at 17:45; Status DC Vancomycin HCl (Vancomycin Trough Level) 1 each 1X ONCE MC ; Start 06/24/19 at 16:30; Stop 06/24/19 at 16:31; Status DC Oseltamivir Phosphate (Tamiflu Suspension) 75 mg BID PEG Last administered on 06/25/19at 22:09; Start 06/23/19 at 22:00; Stop 06/26/19 at 08:08; Status DC Acetaminophen (Tylenol) 650 mg PRN Q6HRS PRN NG MILD PAIN / TEMP Last administered on 06/24/19at 18:27; Start 06/24/19 at 08:00 Multivitamins/ Minerals Therapeutic (Centrum Multivit-Mineral Liq) 5 ml DAILY NG Last administered on 06/26/19at 08:02; Start 06/24/19 at 09:00; Stop 06/27/19 at 08:43; Status DC Enoxaparin Sodium (Lovenox 40mg Syringe) 40 mg Q24H SQ Last administered on 06/27/19at 21:43; Start 06/24/19 at 21:00 Vancomycin HCl 2 gm/Sodium Chloride 500 ml @ 250 mls/hr Q8H IV Last admin istered on 06/25/19at 09:35; Start 06/24/19 at 18:00; Stop 06/25/19 at 11:42; Status DC Vancomycin HCl (Vancomycin Trough Level) 1 each 1X ONCE MC ; Start 06/25/19 at 17:30; Stop 06/25/19 at 11:44; Status DC Oseltamivir Phosphate (Tamiflu) 75 mg BID PO Last administered on 06/28/19at 08:32; Start 06/26/19 at 09:00; Stop 06/28/19 at 09:01 Non-Formulary Medication 1 ea DAILY PO Last administered on 06/28/19at 08:31; Start 06/26/19 at 13:30 Levetiracetam (Keppra) 750 mg BID PO ; Start 06/26/19 at 21:00; Stop 06/26/19 at 17:04; Status DC Levetiracetam 1000 mg/Dextrose 110 ml @ 440 mls/hr Q12HR IV Last administered on 06/28/19at 08:43; Start 06/26/19 at 21:00 Lacosamide 200 mg/ Dextrose 70 ml @ 120 mls/hr BID IV Last administered on 06/28/19at 08:44; Start 06/26/19 at 21:00 Lorazepam (Ativan Inj) 2 mg BID IVP Last administered on 06/28/19at 08:32; Start 06/26/19 at 21:00 Multivitamins (Thera M Plus) 1 tab DAILY PO Last administered on 06/28/19at 08:32; Start 06/27/19 at 09:00 Active Scripts Active Reported Gilenya (Fingolimod Hcl) 0.5 Mg Capsule 0.5 Mg PO DAILY Vitamin D3 (Cholecalciferol (Vitamin D3)) 5,000 Unit Tab.rapdis 1 Tab PO DAILY 30 Days Ginkgo Biloba Extract (Ginkgo Biloba [place] Extract) 60 Mg Capsule 60 Mg PO DAILY Divalproex Sodium 500 Mg Tablet.dr 500 Mg PO DAILY PRN Vitals/I & O Vital Sign - Last 24 Hours 06/27/19 06/27/19 06/27/19 06/27/19 09:00 10:00 11:00 12:00 Temp 98.6 98.2 98.2 98.6 98.2 98.2 Pulse 76 80 81 Resp 18 18 18 B/P (MAP) 135/89 (104) 128/83 (98) 152/93 (112) Pulse Ox 98 98 99 O2 Delivery Room Air Room Air Room Air Room Air O2 Flow Rate 2.0 2.0 2.0 06/27/19 06/27/19 06/27/19 06/27/19 12:00 13:00 14:00 15:00 Temp 98.2 98.2 98.4 98.4 98.2 98.2 98.4 98.4 Pulse 78 73 72 75 Resp 18 18 18 18 B/P (MAP) 121/98 (106) 149/95 (113) 139/93 (108) 150/90 (110) Pulse Ox 99 99 98 99 O2 Delivery Room Air Room Air Room Air Room Air O2 Flow Rate 2.0 2.0 2.0 2.0 06/27/19 06/27/19 06/27/19 06/28/19 19:12 20:00 23:07 03:15 Temp 98.6 98.1 98.6 98.1 Pulse 80 89 77 Resp 18 18 18 B/P (MAP) 125/86 (99) 122/88 (99) 127/73 (91) Pulse Ox 97 96 95 O2 Delivery Room Air Room Air Room Air Room Air 06/28/19 06/28/19 07:05 08:00 Temp 98.4 98.4 Pulse 94 Resp 18 B/P (MAP) 123/81 (95) Pulse Ox 95 O2 Delivery Room Air Room Air Intake and Output 06/27/19 06/27/19 06/28/19 15:00 23:00 07:00 Intake Total 350 ml 70 ml 120 ml Output Total 275 ml 450 ml 50 ml Balance 75 ml -380 ml 70 ml ANEESH HALL MD Jun 28, 2019 08:59
--- NOTE | 2019-06-28 09:59 | RAD ---
EXAM: Chest, single view. HISTORY: Mechanical ventilation. COMPARISON: 06/27/2019 FINDINGS: A frontal view of the chest is obtained. There is no infiltrate, pleural effusion or pneumothorax. The heart is normal in size. IMPRESSION: No acute pulmonary finding. Electronically signed by: Madie Goyal MD (06/28/2019 9:56 AM) [id number]
--- NOTE | 2019-06-28 16:32 | NUR ---
Family had concerns regarding patient hallucinations and visual loss. Page sent to coronary care unit nurse neurology. Patient has been having the symptoms since post seizure.
[2019-06-28] MEDS: levETIRAcetam 500 MG TABLET PO SCH (21:02)
[2019-06-28] MEDS: ENOXAPARIN 40 MG/0.4 ML SYRINGE. SQ SCH (21:02)
[2019-06-28] MEDS: LACOSAMIDE 200 MG TABLET PO SCH (21:02)
[2019-06-29 03:00] VITALS: BP 109/65
[2019-06-29 08:52] VITALS: BP 130/90
--- NOTE | 2019-06-29 10:03 | PDOC ---
[facility] PROGRESS NOTE Chief Complaint Chief Complaint status epilepticus MS exacerbation scattered multifocal moderate to severe T2 and FLAIR hyperintense signal abnormality of the supratentorial parenchyma bilaterally primarily centered in the white matter Influenza A (lab confirmed) Status epilepticus. acute Metabolic encephalopathy. post ictal Lactic acidosis secondary to seizures and increased work of breathing. fever. Leukocytosis. Positive influenza screen. acute hypoxic Respiratory failure. Metabolic encephalopathy. Fever resolved History of Present Illness History of Present Illness 06/29/2019 Patient was seen and examined D/W father regarding diagnosis, progress, plan, and concerns. Father was very anxious about patients condition. D/W RN Reviewed chart Overall, progress has been made since admission Vitals/I&O Vitals/I&O: Vital Signs Date Time Temp Pulse Resp B/P (MAP) Pulse Ox O2 Delivery O2 Flow Rate FiO2 06/29/19 08:52 98.2 75 18 130/90 (103) Room Air 98.2 06/29/19 03:00 95 l I & O 06/28/19 06/28/19 06/29/19 15:00 23:00 07:00 Intake Total 540 ml 500 ml Output Total 250 ml Balance 290 ml 500 ml Physical Exam Physical Exam: General: Alert, moderate distress Lungs: Clear Abdomen: Normal bowel sounds, Soft, No tenderness, No hepatosplenomegaly, No masses Extremities: No clubbing, No cyanosis, No edema, Normal pulses, No tenderness/swelling Skin: No rashes, No breakdown, No significant lesion General: Alert, Cooperative, moderate distress Lungs: Clear Abdomen: Normal bowel sounds, Soft, No tenderness, No hepatosplenomegaly, No masses Extremities: No clubbing, No cyanosis, No edema, Normal pulses, No tenderness/swelling Skin: No rashes, No breakdown, No significant lesion Review of Systems Review of Systems: reports poor depth perception, reports transient changes in color vision, rep orts confusion Assessment and Plan Assessmemt and Plan Assessment: status epilepticus MS exacerbation scattered multifocal moderate to severe T2 and FLAIR hyperintense signal abnormality of the supratentorial parenchyma bilaterally primarily centered in the white matter Influenza A (lab confirmed) Status epilepticus. acute Metabolic encephalopathy. post ictal Lactic acidosis secondary to seizures and increased work of breathing. fever. Leukocytosis. Positive influenza screen. acute hypoxic Respiratory failure. Metabolic encephalopathy. Fever resolved Plan: Continue Seizure prophylaxis/precautions SNU evaluation Monitor clinical symptoms and progress Patient's father would like records sent to patients outpatient neurologist Perfecto Lane APRN ([phone]) Updated labs ordered Appreciate subspeciality input PT/OT evaluation DVT Prophylaxis Father's questions were answered to his satisfaction Comment Review of Relevant I have reviewed the following items rosalina (where applicable) has been applied. Medications: Current Medications Medications (Trade) Dose Ordered Sig/Placido Route PRN Reason Start Time Stop Time Status Last Admin Dose Admin Lacosamide (Vimpat) 200 mg BID PO 06/28/19 21:00 06/28/19 21:02 Levetiracetam (Keppra) 1,000 mg BID PO 06/28/19 21:00 06/28/19 21:02 MARCELLE AQUINO III DO Jun 29, 2019 10:03
[2019-06-29] MEDS: levETIRAcetam 500 MG TABLET PO SCH ×2 (10:40→21:16)
[2019-06-29] MEDS: LACOSAMIDE 200 MG TABLET PO SCH ×2 (10:40→21:16)
[2019-06-29] MEDS: MULTIVITAMIN with MINERAL TABLET. PO SCH (10:41)
[2019-06-29 11:09] VITALS: BP 126/91
--- NOTE | 2019-06-29 12:24 | PDOC ---
PULMONARY PROGRESS NOTES Subjective EXTUBATED 06/25, hallucinating Vitals Vital Signs Date Time Temp Pulse Resp B/P (MAP) Pulse Ox O2 Delivery O2 Flow Rate FiO2 06/29/19 11:09 97.6 73 18 126/91 (103) Room Air 97.6 06/29/19 03:00 95 ROS: No Nausea, No Chest Pain, No Abdominal Pain, No Increase Cough General: Alert, No acute distress Lungs: Clear Cardiovascular: S1 Abdomen: Soft Extremities: No Edema Skin: Warm Labs Laboratory Tests Test 06/27/19 15:08 White Blood Count 6.4 x10^3/uL (4.0-11.0) Red Blood Count 4.83 x10^6/uL (4.30-5.70) Hemoglobin 14.6 g/dL (13.0-17.5) Hematocrit 41.6 % (39.0-53.0) Mean Corpuscular Volume 86 fL (79-100) Mean Corpuscular Hemoglobin 30 pg (25-35) Mean Corpuscular Hemoglobin Concent 35 g/dL (31-37) Red Cell Distribution Width 12.5 % (11.5-14.5) Platelet Count 368 x10^3/uL (140-400) Neutrophils (%) (Auto) 79 % (31-73) Lymphocytes (%) (Auto) 7 % (24-48) Monocytes (%) (Auto) 12 % (0-9) Eosinophils (%) (Auto) 2 % (0-3) Basophils (%) (Auto) 0 % (0-3) Neutrophils # (Auto) 5.0 x10^3/uL (1.8-7.7) Lymphocytes # (Auto) 0.4 x10^3/uL (1.0-4.8) Monocytes # (Auto) 0.8 x10^3/uL (0.0-1.1) Eosinophils # (Auto) 0.1 x10^3/uL (0.0-0.7) Basophils # (Auto) 0.0 x10^3/uL (0.0-0.2) Sodium Level 142 mmol/L (136-145) Potassium Level 4.4 mmol/L (3.5-5.1) Chloride Level 104 mmol/L (98-107) Carbon Dioxide Level 25 mmol/L (21-32) Anion Gap 13 (6-14) Blood Urea Nitrogen 18 mg/dL (8-26) Creatinine 0.6 mg/dL (0.7-1.3) Estimated GFR (Cockcroft-Gault) 161.6 BUN/Creatinine Ratio 30 (6-20) Glucose Level 96 mg/dL (70-99) Calcium Level 9.3 mg/dL (8.5-10.1) Total Bilirubin 0.4 mg/dL (0.2-1.0) Aspartate Amino Transf (AST/SGOT) 39 U/L (15-37) Alanine Aminotransferase (ALT/SGPT) 80 U/L (16-63) Alkaline Phosphatase 52 U/L (46-116) Total Protein 6.7 g/dL (6.4-8.2) Albumin 3.5 g/dL (3.4-5.0) Albumin/Globulin Ratio 1.1 (1.0-1.7) Medications Active Scripts Medications Dose Route/Sig Max Daily Dose Days Date Category Gilenya (Fingolimod Hcl) 0.5 Mg Capsule 0.5 Mg PO DAILY 06/24/19 Reported Vitamin D3 (Cholecalciferol (Vitamin D3)) 5,000 Unit Tab.rapdis 1 Tab PO DAILY 30 06/24/19 Reported Ginkgo Biloba Extract (Ginkgo Biloba [place] Extract) 60 Mg Capsule 60 Mg PO DAILY 06/24/19 Reported Divalproex Sodium 500 Mg Tablet.dr 500 Mg PO DAILY PRN 06/24/19 Reported Impression . 1. Acute respiratory failure secondary to status epilepticus. extubated 06/25 2. Status epilepticus.resolved 3. Metabolic encephalopathy. post ictal, improved 4. Lactic acidosis secondary to seizures and increased work of breathing. 5. fever. 6. Leukocytosis. 7. Positive influenza screen. 8. Status post LP with no organisms seen on Gram stain. 9. hallucination Plan . Stable from pulmonary standpoint remains on R/A seizure precautions, no overnight seizures reported tamiflu ,total course Follow neurology recs remains off antibiotics will s/o. D/W GUICHO HOLM MD Jun 29, 2019 12:24
[2019-06-29 15:11] LABS: ALBUMIN,CSF 23 mg/dL (11-48); ALBUMIN,SERUM 4.1 g/dL (4.1-5.2); IGG,SERUM 514 mg/dL (700-1600)
[2019-06-29 16:27] VITALS: BP 128/89
--- NOTE | 2019-06-29 16:37 | PDOC ---
PROGRESS NOTES Assessment Assessment Status epilepticus. Seizure x 1, a year ago. Influenza A. Respiratory failure. Metabolic encephalopathy. Fever Lactic acidosis. Leukocytosis. MS. Genital wards likely. Obesity. RECOMMENDATIONS/PLAN: Continue Vimpat 200 mg bid. Continue Keppra 500 mg bid. Add Depacon 500 mg IV q8h. Increase Ativan to 2 mg IV q8h. Treat medical diseases. Discussed in great detail with his father at bedside on 06/29/19. HCT performed no SAH, ICH or other acute findings. 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 Brain MRI w/wo contrast no acute findings. CSF: Cultures negative. EEG on 06/26/19: Continue subclinical status epilepticus. HSV by PCR negative. EEG on 06/29/19: Improved in some degree but still has continued subclinical status epilepticus at temporal and occipital areas. HISTORY OF THE PRESENT ILLNESS: This is a 29-year-old male patient with history of MS and seizure. He was brought to the ER of [facility] on 06/23/19 due to persistent seizures. He was reportedly to have a seizure about 1 year ago that was severe enough to be taken to [facility]. According to his parents and partner he was placed on a unknown seizure medication following last episode. This medication was stopped by his neurologist Perfecto Tuttle APRN at [facility] in December of 2018. Prior to this evening he had been dealing with gastroenteritis-like symptoms with nausea and vomiting. His partner said that he was very lethargic this morning and his partner had to dress him. They were on the way to an urgent care when patient's right arm stiffened and he was unable to move it. They were in the middle of it going down the stairs. His partner stated that he carried the patient down the stairs. The patient then began seizing. He and his partner both fell to the ground. His partner was unsure about any head trauma. His partner placed him on his side and immediately dialed 911 and his parents. In route to the hospital via EMT he received 10 mg of Versed was given. He was still seizing in the ER of [facility] and eventually stopped by Ativan and Versed. 06/29/19: Mental status significantly improved and no clinical seizure, but EEG still abnormal. PAST MEDICAL HISTORY: Seizure MS PAST SURGERY HISTORY: No major surgery recently. ALLERGY: Unknown MEDICATIONS: Refer to [facility] HISTORY: Non contributory. SOCIAL HISTORY: Lives with his partner. Denies smoking. He drinks alcohol occasionally. He uses/abuses marijuana. REVIEW OF SYSTEMS: Constitutional: No malnutrition, weight loss, cachexia. Head: No traumatic brain or head injury. Skin: No edema, or rash. Ear: No infection. Eyes: No vision loss or color blindness. Nose: No bleeding or purulent discharges. Hearing: No hearing decrease. Neck: No injury. Cardiac: No ID, arrhythmia,claudication. Pulmonary: Pneumonia. GI: No GI ulcer, GI bleeding. Urinary/genital: UTI. Endocrinologic: Diabetes Mellitus. Skeletomuscular: No muscular atrophy, deformity. Neurological: Seizure, MS. Psychiatric: Marijuana use/abuse. Otherwise, not [id number] review of systems. PHYSICAL EXAMINATION: General appearance is in subacute distress. HEENT: Normocephalic and nontraumatic. Eyes, nose, ears, and throat are unre markable. Neck is supple. No crepitus. Cardiovascular: S1, S2, regular rate and rhythm. Pulmonary: On vent. Abdomen: Bowel sounds are positive. Extremities: No rash, lesions, or edema. No restriction of range of motion NEUROLOGICAL EXAMINATION: On room air. Alert. Oriented partially to time and place but knew person. PERRL EOMI. CN: no focal findings elicited. Muscle tone: WNL Muscle strength: 5 DTR: 2 UE, 1+ at knee. Plantar reflex: Neutral response bilaterally Gait: Able to walk. Sensory exam: No acute abnormal findings. No other cerebellar signs elicited. F-T-N test fine. Objective Objective Vital Signs Date Time Temp Pulse Resp B/P (MAP) Pulse Ox O2 Delivery O2 Flow Rate FiO2 06/29/19 11:09 97.6 73 18 126/91 (103) Room Air 97.6 06/29/19 03:00 95 Intake and Output 06/29/19 07:00 Intake Total 1040 ml Output Total 250 ml Balance 790 ml Intake Oral 860 ml IV Total 180 ml Output Urine Total 250 ml # Voids 4 Vitals Signs Vitals VS - Last 72 Hours, by Label Date Time Temp Pulse Resp B/P (MAP) Pulse Ox O2 Delivery O2 Flow Rate FiO2 06/29/19 11:09 97.6 73 18 126/91 (103) Room Air 97.6 06/29/19 08:52 98.2 75 18 130/90 (103) Room Air 98.2 06/29/19 03:00 98.0 73 18 109/65 (80) 95 Room Air 98.0 06/28/19 22:40 98.1 82 18 163/99 (120) 98 Room Air 98.1 06/28/19 19:55 Room Air 06/28/19 19:21 97.5 76 18 117/76 (90) 97 Room Air 97.5 06/28/19 16:23 124/89 (101) 06/28/19 14:44 98.4 78 18 130/89 (103) 98 Room Air 98.4 06/28/19 11:00 98.5 86 18 134/91 (105) 95 Room Air 98.5 06/28/19 08:00 Room Air 06/28/19 07:05 98.4 94 18 123/81 (95) 95 Room Air 98.4 Laboratory Laboratory Microbiology 06/23/19 CSF Gram Stain - Final, Complete 06/23/19 Blood Culture - Final, Complete NO GROWTH AFTER 5 DAYS 06/23/19 Urine Culture - Final, Complete 06/23/19 Urine Culture Result 1 (VINAY) - Final, Complete Medication Medications Current Medications Lacosamide (Vimpat) 200 mg BID PO Last administered on 06/29/19at 10:40; Start 06/28/19 at 21:00 Levetiracetam (Keppra) 500 mg BID PO ; Start 06/29/19 at 21:00 Levetiracetam (Keppra) 1,000 mg BID PO Last administered on 06/29/19at 10:40; Start 06/28/19 at 21:00; Stop 06/29/19 at 15:12; Status DC Valproic Acid 500 mg/Dextrose 55 ml @ 55 mls/hr Q8HRS IV ; Start 06/29/19 at 15:30 Comment Review of Relevant I have reviewed the following items rosalina (where applicable) has been applied. RADHA WORRELL MD Jun 29, 2019 16:37
[2019-06-29] MEDS: ACETAMINOPHEN 650 MG/20.3 ML SOLUTION. NG PRN (18:08)
[2019-06-29] MEDS: VALPROIC ACID (AS SODIUM SALT) 500 MG in IV DEXTROSE 5% 50 ML IV SCH (18:15)
--- NOTE | 2019-06-29 18:24 | EEG ---
DATE OF SERVICE: 06/29/2019 EEG NUMBER: [id number]. OBJECTIVE: This is a 29-year-old male patient with history of seizure. He has status epilepticus and has been treated. EEG was requested to evaluate seizure activity. METHODS: Twenty electrodes were applied according to the international 10-20 electrode placement system. EKG monitoring, hyperventilation, intermittent photic stimulation, monopolar and bipolar montages are routinely utilized. The record was obtained on a digital system with video monitoring. MEDICATIONS: Ativan, Keppra, Vimpat. FINDINGS: 1. Background: The patient was recorded in the awake and drowsy states. No actual sleep state was recorded. The overall background amplitude is variable. A posterior dominant rhythm of 8 Hz is observed. 2. Abnormalities: There are frequent [id number] discharges at T3, T4, T5, T6, O1 and O2 regions about 2-3 Hz per second lasting for a few seconds each time throughout the entire recording. 3. Activation: Hyperventilation was performed with good efforts. Intermittent photic stimulation was performed with photic driving. IMPRESSION: This EEG is an abnormal study for the awake and drowsy states. No actual sleep state was recorded. There are frequent epileptiform discharges at bilateral temporal and occipital regions. No clinical seizure during EEG study. This pattern of EEG is suggestive of subclinical seizures, mainly in the temporal and occipital regions. Compared with previous study on 06/26/2019, this EEG has improved in some degree. RADHA WORRELL MD DR: ABDIAZIZ/alfred JOB#: [id number] / [id number] JERZY
[2019-06-29 19:30] VITALS: BP 128/94
[2019-06-29] MEDS: ENOXAPARIN 40 MG/0.4 ML SYRINGE. SQ SCH (21:16)
[2019-06-29 23:00] VITALS: BP 128/89
[2019-06-30] MEDS: VALPROIC ACID (AS SODIUM SALT) 500 MG in IV DEXTROSE 5% 50 ML IV SCH ×3 (00:13→14:26)
[2019-06-30 03:00] VITALS: BP 127/83
[2019-06-30 04:19] LABS: HEMATOCRIT 43.3 % (39.0-53.0); HEMOGLOBIN 15.1 g/dL (13.0-17.5); RED BLOOD COUNT 4.98 x10^6/uL (4.30-5.70); RED CELL DISTRIBUTION WIDTH 12.5 % (11.5-14.5); WHITE BLOOD COUNT 7.9 x10^3/uL (4.0-11.0)
[2019-06-30 04:41] LABS: ALBUMIN 3.5 g/dL (3.4-5.0); ALBUMIN/GLOBULIN RATIO 1.2 (1.0-1.7); CREATININE 0.6 mg/dL (0.7-1.3); GFR 161.6; POTASSIUM 4.4 mmol/L (3.5-5.1); TOTAL BILIRUBIN 0.3 mg/dL (0.2-1.0); TOTAL PROTEIN 6.5 g/dL (6.4-8.2)
[2019-06-30 08:07] VITALS: BP 134/91
[2019-06-30] MEDS: MULTIVITAMIN with MINERAL TABLET. PO SCH (08:16)
[2019-06-30] MEDS: levETIRAcetam 500 MG TABLET PO SCH (08:16)
[2019-06-30] MEDS: LACOSAMIDE 200 MG TABLET PO SCH (08:16)
--- NOTE | 2019-06-30 08:37 | NUR ---
IP: Pt has completed 7 days of droplet precautions and has been afebrile for >24 hours. Pt may be removed from droplet precautions.
--- NOTE | 2019-06-30 09:03 | PDOC ---
PULMONARY PROGRESS NOTES Subjective EXTUBATED 06/25, hallucinating Vitals Vital Signs Date Time Temp Pulse Resp B/P (MAP) Pulse Ox O2 Delivery O2 Flow Rate FiO2 06/30/19 08:07 97.6 77 18 134/91 (105) 99 Room Air 97.6 ROS: No Nausea, No Chest Pain, No Abdominal Pain, No Increase Cough General: Alert, No acute distress Lungs: Clear Cardiovascular: S1 Abdomen: Soft Extremities: No Edema Skin: Warm Labs Laboratory Tests Test 06/30/19 02:54 White Blood Count 7.9 x10^3/uL (4.0-11.0) Red Blood Count 4.98 x10^6/uL (4.30-5.70) Hemoglobin 15.1 g/dL (13.0-17.5) Hematocrit 43.3 % (39.0-53.0) Mean Corpuscular Volume 87 fL (79-100) Mean Corpuscular Hemoglobin 30 pg (25-35) Mean Corpuscular Hemoglobin Concent 35 g/dL (31-37) Red Cell Distribution Width 12.5 % (11.5-14.5) Platelet Count 448 x10^3/uL (140-400) Sodium Level 142 mmol/L (136-145) Potassium Level 4.4 mmol/L (3.5-5.1) Chloride Level 104 mmol/L (98-107) Carbon Dioxide Level 24 mmol/L (21-32) Anion Gap 14 (6-14) Blood Urea Nitrogen 14 mg/dL (8-26) Creatinine 0.6 mg/dL (0.7-1.3) Estimated GFR (Cockcroft-Gault) 161.6 BUN/Creatinine Ratio 23 (6-20) Glucose Level 81 mg/dL (70-99) Calcium Level 9.0 mg/dL (8.5-10.1) Total Bilirubin 0.3 mg/dL (0.2-1.0) Aspartate Amino Transf (AST/SGOT) 26 U/L (15-37) Alanine Aminotransferase (ALT/SGPT) 79 U/L (16-63) Alkaline Phosphatase 51 U/L (46-116) Total Protein 6.5 g/dL (6.4-8.2) Albumin 3.5 g/dL (3.4-5.0) Albumin/Globulin Ratio 1.2 (1.0-1.7) Laboratory Tests Test 06/30/19 02:54 White Blood Count 7.9 x10^3/uL (4.0-11.0) Red Blood Count 4.98 x10^6/uL (4.30-5.70) Hemoglobin 15.1 g/dL (13.0-17.5) Hematocrit 43.3 % (39.0-53.0) Mean Corpuscular Volume 87 fL (79-100) Mean Corpuscular Hemoglobin 30 pg (25-35) Mean Corpuscular Hemoglobin Concent 35 g/dL (31-37) Red Cell Distribution Width 12.5 % (11.5-14.5) Platelet Count 448 x10^3/uL (140-400) Sodium Level 142 mmol/L (136-145) Potassium Level 4.4 mmol/L (3.5-5.1) Chloride Level 104 mmol/L (98-107) Carbon Dioxide Level 24 mmol/L (21-32) Anion Gap 14 (6-14) Blood Urea Nitrogen 14 mg/dL (8-26) Creatinine 0.6 mg/dL (0.7-1.3) Estimated GFR (Cockcroft-Gault) 161.6 BUN/Creatinine Ratio 23 (6-20) Glucose Level 81 mg/dL (70-99) Calcium Level 9.0 mg/dL (8.5-10.1) Total Bilirubin 0.3 mg/dL (0.2-1.0) Aspartate Amino Transf (AST/SGOT) 26 U/L (15-37) Alanine Aminotransferase (ALT/SGPT) 79 U/L (16-63) Alkaline Phosphatase 51 U/L (46-116) Total Protein 6.5 g/dL (6.4-8.2) Albumin 3.5 g/dL (3.4-5.0) Albumin/Globulin Ratio 1.2 (1.0-1.7) Medications Active Scripts Medications Dose Route/Sig Max Daily Dose Days Date Category Gilenya (Fingolimod Hcl) 0.5 Mg Capsule 0.5 Mg PO DAILY 06/24/19 Reported Vitamin D3 (Cholecalciferol (Vitamin D3)) 5,000 Unit Tab.rapdis 1 Tab PO DAILY 30 06/24/19 Reported Ginkgo Biloba Extract (Ginkgo Biloba Supai Extract) 60 Mg Capsule 60 Mg PO DAILY 06/24/19 Reported Divalproex Sodium 500 Mg Tablet.dr 500 Mg PO DAILY PRN 06/24/19 Reported Impression . 1. Acute respiratory failure secondary to status epilepticus. extubated 06/25 2. Status epilepticus.resolved 3. Metabolic encephalopathy. post ictal, improved 4. Lactic acidosis secondary to seizures and increased work of breathing. 5. fever. 6. Leukocytosis. 7. Positive influenza screen. 8. Status post LP with no organisms seen on Gram stain. 9. hallucination Plan . Stable from pulmonary standpoint remains on R/A seizure precautions, no overnight seizures reported tamiflu ,total course Follow neurology recs remains off antibiotics will s/o. D/W CHAPARRO THOMAS MD Jun 30, 2019 09:03
[2019-06-30 11:01] VITALS: BP 140/86
--- NOTE | 2019-06-30 11:58 | PDOC ---
[facility] [facility] PROGRESS NOTE Chief Complaint Chief Complaint Status epilepticus, resolved MS exacerbation Scattered multifocal moderate to severe T2 and FLAIR hyperintense signal abnormality of the supratentorial parenchyma bilaterally primarily centered in the white matter Acute metabolic encephalopathy, post-ictal Hallucinations Lactic acidosis secondary to seizures and increased work of breathing Leukocytosis Positive influenza screen Acute hypoxic Respiratory failure, (extubated 06/25/2019) Metabolic encephalopathy Fever resolved History of Present Illness History of Present Illness 06/29/2019 Patient was seen and examined D/W father regarding diagnosis, progress, plan, and concerns. Father was very anxious about patients condition. D/W RN Reviewed chart Overall, progress has been made since admission 06/30/2019 -Patient was seen and examined alongside his brother and father. -Chart reviewed and care discussed with nursing staff. -Pt sitting comfortably in chair. He continues to have hallucinations X3 days. Discussed with patient that he will slowly improve with time. Pt able to give a high five during exam. Pt unable to read my name of a card. Will continue to follow. Vitals/I&O Vitals/I&O: Vital Signs Date Time Temp Pulse Resp B/P (MAP) Pulse Ox O2 Delivery O2 Flow Rate FiO2 06/30/19 11:01 97.6 88 20 140/86 (104) 98 Room Air 97.6 I & O 06/29/19 06/29/19 06/30/19 15:00 23:00 07:00 Intake Total 300 ml 1500 ml 840 ml Balance 300 ml 1500 ml 840 ml Physical Exam Physical Exam: Neuro: CN 2-12 grossly intact b/l. Pt able to high five me. He is unable to read my name of note card. General: Alert, Cooperative, No acute distress Heart: Regular rate, No murmurs Lungs: Clear Abdomen: Normal bowel sounds, Soft, No tenderness, No hepatosplenomegaly, No masses Extremities: No clubbing, No cyanosis, No edema, Normal pulses, No tendernes s/swelling Skin: No rashes, No breakdown, No significant lesion Labs Labs: Laboratory Tests Test 06/30/19 02:54 White Blood Count 7.9 x10^3/uL (4.0-11.0) Red Blood Count 4.98 x10^6/uL (4.30-5.70) Hemoglobin 15.1 g/dL (13.0-17.5) Hematocrit 43.3 % (39.0-53.0) Mean Corpuscular Volume 87 fL (79-100) Mean Corpuscular Hemoglobin 30 pg (25-35) Mean Corpuscular Hemoglobin Concent 35 g/dL (31-37) Red Cell Distribution Width 12.5 % (11.5-14.5) Platelet Count 448 x10^3/uL (140-400) Sodium Level 142 mmol/L (136-145) Potassium Level 4.4 mmol/L (3.5-5.1) Chloride Level 104 mmol/L (98-107) Carbon Dioxide Level 24 mmol/L (21-32) Anion Gap 14 (6-14) Blood Urea Nitrogen 14 mg/dL (8-26) Creatinine 0.6 mg/dL (0.7-1.3) Estimated GFR (Cockcroft-Gault) 161.6 BUN/Creatinine Ratio 23 (6-20) Glucose Level 81 mg/dL (70-99) Calcium Level 9.0 mg/dL (8.5-10.1) Total Bilirubin 0.3 mg/dL (0.2-1.0) Aspartate Amino Transf (AST/SGOT) 26 U/L (15-37) Alanine Aminotransferase (ALT/SGPT) 79 U/L (16-63) Alkaline Phosphatase 51 U/L (46-116) Total Protein 6.5 g/dL (6.4-8.2) Albumin 3.5 g/dL (3.4-5.0) Albumin/Globulin Ratio 1.2 (1.0-1.7) Review of Systems Review of Systems: Reports Hallucinations Denies Chest pain or SOA Assessment and Plan Assessmemt and Plan Problems Medical Problems: (1) Bandemia Status: Acute (2) Leukocytosis Status: Acute (3) Status epilepticus Status: Acute ASSESSMENT: Status epilepticus, resolved MS exacerbation Scattered multifocal moderate to severe T2 and FLAIR hyperintense signal abnormality of the supratentorial parenchyma bilaterally primarily centered in the white matter Acute metabolic encephalopathy, post-ictal Hallucinations Lactic acidosis secondary to seizures and increased work of breathing Leukocytosis Positive influenza screen Acute hypoxic Respiratory failure, (extubated 06/25/2019) Metabolic encephalopathy Fever resolved PLAN: -Continue Seizure prophylaxis/precautions -SNU evaluation -Neuro & Pulm following -Trend Labs -PT/OT evaluation -DVT ppx -Full code Comment Review of Relevant I have reviewed the following items rosalina (where applicable) has been applied. Medications: Current Medications Medications (Trade) Dose Ordered Sig/Placido Route PRN Reason Start Time Stop Time Status Last Admin Dose Admin Levetiracetam (Keppra) 500 mg BID PO 06/29/19 21:00 06/30/19 08:16 Valproic Acid 500 mg/Dextrose 55 ml @ 55 mls/hr Q8HRS IV 06/29/19 15:30 06/30/19 06:30 Lorazepam (Ativan Inj) 2 mg Q8HRS IVP 06/29/19 17:00 06/30/19 06:30 MARCELLE AQUINO III DO Jun 30, 2019 11:58
--- NOTE | 2019-06-30 12:03 | NUR ---
SS following up with discharge planning. Pt is currently on room air. PT/OT recommended home. SS will continue to follow for discharge planning.
--- NOTE | 2019-06-30 14:30 | PDOC ---
PROGRESS NOTES Assessment Assessment Clinical status epilepticus, then subclinical status epilepticus. Seizure x 1, a year ago. Influenza A. Respiratory failure. Metabolic encephalopathy. Fever Lactic acidosis. Leukocytosis. MS. Genital wards likely. Obesity. RECOMMENDATIONS/PLAN: Continue Vimpat 200 mg bid. Continue Keppra 500 mg bid. Added Depacon 500 mg IV q8h. Ativan 2 mg IV q8h. Treat medical diseases. Discussed in great detail again with him and his father at bedside on 06/30/19. Called [facility] and notified them about the patient's condition on 06/30/19, but that clinical assistant in nursing refused communication with [facility] neurology. HCT performed no SAH, ICH or other acute findings. 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 Brain MRI w/wo contrast no acute findings. CSF: Cultures negative. EEG on 06/26/19: Continue subclinical status epilepticus. HSV by PCR negative. EEG on 06/29/19: Improved in some degree but still has continued subclinical status epilepticus at temporal and occipital areas. HISTORY OF THE PRESENT ILLNESS: This is a 29-year-old male patient with history of MS and seizure. He was brought to the ER of [facility] on 06/23/19 due to persistent seizures. He was r eportedly to have a seizure about 1 year ago that was severe enough to be taken to [facility]. According to his parents and partner he was placed on a unknown seizure medication following last episode. This medication was stopped by his neurologist Perfecto Tuttle APRN at [facility] in December of 2018. Prior to this evening he had been dealing with gastroenteritis-like symptoms with nausea and vomiting. His partner said that he was very lethargic this morning and his partner had to dress him. They were on the way to an urgent care when patient's right arm stiffened and he was unable to move it. They were in the middle of it going down the stairs. His partner stated that he carried the patient down the stairs. The patient then began seizing. He and his partner both fell to the ground. His partner was unsure about any head trauma. His partner placed him on his side and immediately dialed 911 and his parents. In route to the hospital via EMT he received 10 mg of Versed was given. He was s till seizing in the ER of [facility] and eventually stopped by Ativan and Versed. 06/30/19: Mental status near baseline normal and no clinical seizure. Repeated EEG on 06/29/19 improved in some degree, but still showing frequent epileptiform discharges and subclinical seizures. PAST MEDICAL HISTORY: Seizure MS PAST SURGERY HISTORY: No major surgery recently. ALLERGY: Unknown MEDICATIONS: Refer to [facility] HISTORY: Non contributory. SOCIAL HISTORY: Lives with his partner. Denies smoking. He drinks alcohol occasionally. He uses/abuses marijuana. REVIEW OF SYSTEMS: Constitutional: No malnutrition, weight loss, cachexia. Head: No traumatic brain or head injury. Skin: No edema, or rash. Ear: No infection. Eyes: No vision loss or color blindness. Nose: No bleeding or purulent discharges. Hearing: No hearing decrease. Neck: No injury. Cardiac: No NJ, arrhythmia,claudication. Pulmonary: Pneumonia. GI: No GI ulcer, GI bleeding. Urinary/genital: UTI. Endocrinologic: Diabetes Mellitus. Skeletomuscular: No muscular atrophy, deformity. Neurological: Seizure, MS. Psychiatric: Marijuana use/abuse. Otherwise, not [id number] review of systems. PHYSICAL EXAMINATION: General appearance is in subacute distress. HEENT: Normocephalic and nontraumatic. Eyes, nose, ears, and throat are unremarkable. Neck is supple. No crepitus. Cardiovascular: S1, S2, regular rate and rhythm. Pulmonary: On vent. Abdomen: Bowel sounds are positive. Extremities: No rash, lesions, or edema. No restriction of range of motion NEUROLOGICAL EXAMINATION: Off vent. On room air. Alert. Oriented to time, place and person. PERRL EOMI. CN: no focal findings elicited. Muscle tone: WNL Muscle strength: 5 DTR: 2 UE, 1+ at knee. Plantar reflex: Neutral response bilaterally Gait: Able to walk, but mildly unsteadiness. Sensory exam: No acute abnormal findings. No other cerebellar signs elicited. F-T-N test fine. Objective Objective Vital Signs Date Time Temp Pulse Resp B/P (MAP) Pulse Ox O2 Delivery O2 Flow Rate FiO2 06/30/19 11:01 97.6 88 20 140/86 (104) 98 Room Air 97.6 Intake and Output 06/30/19 07:00 Intake Total 2640 ml Balance 2640 ml Intake Oral 2640 ml # Voids 6 # Bowel Movements 1 Vitals Signs Vitals VS - Last 72 Hours, by Label Date Time Temp Pulse Resp B/P (MAP) Pulse Ox O2 Delivery O2 Flow Rate FiO2 06/30/19 11:01 97.6 88 20 140/86 (104) 98 Room Air 97.6 06/30/19 08:07 97.6 77 18 134/91 (105) 99 Room Air 97.6 06/30/19 08:00 Room Air 06/30/19 03:00 97.3 86 18 127/83 (98) 98 Room Air 97.3 06/29/19 23:00 98.0 74 19 128/89 (102) 97 Room Air 98.0 06/29/19 20:17 Room Air 06/29/19 19:30 97.7 82 19 128/94 (105) 98 Room Air 97.7 06/29/19 16:27 98.2 98 18 128/89 (102) Room Air 98.2 06/29/19 11:09 97.6 73 18 126/91 (103) Room Air 97.6 06/29/19 08:52 98.2 75 18 130/90 (103) Room Air 98.2 06/29/19 08:00 Room Air Laboratory Laboratory Laboratory Tests Test 06/30/19 02:54 White Blood Count 7.9 x10^3/uL (4.0-11.0) Red Blood Count 4.98 x10^6/uL (4.30-5.70) Hemoglobin 15.1 g/dL (13.0-17.5) Hematocrit 43.3 % (39.0-53.0) Mean Corpuscular Volume 87 fL (79-100) Mean Corpuscular Hemoglobin 30 pg (25-35) Mean Corpuscular Hemoglobin Concent 35 g/dL (31-37) Red Cell Distribution Width 12.5 % (11.5-14.5) Platelet Count 448 x10^3/uL (140-400) Sodium Level 142 mmol/L (136-145) Potassium Level 4.4 mmol/L (3.5-5.1) Chloride Level 104 mmol/L (98-107) Carbon Dioxide Level 24 mmol/L (21-32) Anion Gap 14 (6-14) Blood Urea Nitrogen 14 mg/dL (8-26) Creatinine 0.6 mg/dL (0.7-1.3) Estimated GFR (Cockcroft-Gault) 161.6 BUN/Creatinine Ratio 23 (6-20) Glucose Level 81 mg/dL (70-99) Calcium Level 9.0 mg/dL (8.5-10.1) Total Bilirubin 0.3 mg/dL (0.2-1.0) Aspartate Amino Transf (AST/SGOT) 26 U/L (15-37) Alanine Aminotransferase (ALT/SGPT) 79 U/L (16-63) Alkaline Phosphatase 51 U/L (46-116) Total Protein 6.5 g/dL (6.4-8.2) Albumin 3.5 g/dL (3.4-5.0) Albumin/Globulin Ratio 1.2 (1.0-1.7) Microbiology 06/23/19 Fungal Culture - Preliminary, Resulted 06/23/19 Fungal Culture Result 1 - Preliminary, Resulted 06/23/19 Blood Culture - Final, Complete NO GROWTH AFTER 5 DAYS 06/23/19 Urine Culture - Final, Complete 06/23/19 Urine Culture Result 1 (VINAY) - Final, Complete Medication Medications Current Medications Levetiracetam (Keppra) 500 mg BID PO Last administered on 06/30/19at 08:16; Start 06/29/19 at 21:00 Lorazepam (Ativan Inj) 2 mg Q8HRS IVP Last administered on 06/30/19at 06:30; Start 06/29/19 at 17:00 Valproic Acid 500 mg/Dextrose 55 ml @ 55 mls/hr Q8HRS IV Last administered on 06/30/19at 06:30; Start 06/29/19 at 15:30 Comment Review of Relevant I have reviewed the following items rosalina (where applicable) has been applied. RADHA WORRELL MD Jun 30, 2019 14:29
[2019-06-30 15:08] VITALS: BP 122/87
--- NOTE | 2019-06-30 15:43 | NUR ---
SS following up with discharge planning. SS received request for [facility] transfer from Dr. Blair. SS contacted [facility] transfer team, ; fax [phone], and made request for transfer. SS phoned and faxed demographics as requested. Packet, transfer form, and ambulance form on chart. Pt's RN notified.
--- NOTE | 2019-06-30 17:44 | PDOC ---
PROGRESS NOTES Assessment Assessment Gigi: Discussed with Epileptologist Dr. Benitez and patient relations director physician Dr. Judge ([phone]) in all detail about patient Devante Connelly's entire hospital cause in [facility] and antiseizure treatment for clinical status epilpeticus then subclinical status epilepticus. Required transfer him to [facility] for further treatment since [facility] dose not have epilepsy center nor available EEG to monitoring treatment closely. Dr. Benitez and Dr. Judge informed that no bed in their medical center this time and suggested to contact [facility]. Outreach Nurse is working on that now. Dr. Benitez suggested increased dose of Keppra that not likely causing hallucination as patient complained in the past a couple of days, also find seizure controllable dosing of Depakote. No EEG Performed in [facility] Discussed with patient's neurology provider [employer] ATTEND[employer] Mr. Leblanc at [phone] that Depakote prescribed to the patient on 01/27/19 with 2 refills were for the treatment of his seizure. However, patient never takes this medication per him and his father. Mr. Lane provided that patient had seizure at age 18 months and seizure in 05/2018 seen in [facility] and had EEG there, but no EEG results. Objective Objective Vital Signs Date Time Temp Pulse Resp B/P (MAP) Pulse Ox O2 Delivery O2 Flow Rate FiO2 06/30/19 15:08 98.7 72 18 122/87 (99) 97 Room Air 98.7 Intake and Output 06/30/19 07:00 Intake Total 2640 ml Balance 2640 ml Intake Oral 2640 ml # Voids 6 # Bowel Movements 1 Vitals Signs Vitals VS - Last 72 Hours, by Label Date Time Temp Pulse Resp B/P (MAP) Pulse Ox O2 Delivery O2 Flow Rate FiO2 06/30/19 15:08 98.7 72 18 122/87 (99) 97 Room Air 98.7 06/30/19 11:01 97.6 88 20 140/86 (104) 98 Room Air 97.6 06/30/19 08:07 97.6 77 18 134/91 (105) 99 Room Air 97.6 06/30/19 08:00 Room Air 06/30/19 03:00 97.3 86 18 127/83 (98) 98 Room Air 97.3 06/29/19 23:00 98.0 74 19 128/89 (102) 97 Room Air 98.0 06/29/19 20:17 Room Air 06/29/19 19:30 97.7 82 19 128/94 (105) 98 Room Air 97.7 06/29/19 16:27 98.2 98 18 128/89 (102) Room Air 98.2 06/29/19 11:09 97.6 73 18 126/91 (103) Room Air 97.6 06/29/19 08:52 98.2 75 18 130/90 (103) Room Air 98.2 06/29/19 08:00 Room Air Laboratory Laboratory Laboratory Tests Test 06/30/19 02:54 White Blood Count 7.9 x10^3/uL (4.0-11.0) Red Blood Count 4.98 x10^6/uL (4.30-5.70) Hemoglobin 15.1 g/dL (13.0-17.5) Hematocrit 43.3 % (39.0-53.0) Mean Corpuscular Volume 87 fL (79-100) Mean Corpuscular Hemoglobin 30 pg (25-35) Mean Corpuscular Hemoglobin Concent 35 g/dL (31-37) Red Cell Distribution Width 12.5 % (11.5-14.5) Platelet Count 448 x10^3/uL (140-400) Sodium Level 142 mmol/L (136-145) Potassium Level 4.4 mmol/L (3.5-5.1) Chloride Level 104 mmol/L (98-107) Carbon Dioxide Level 24 mmol/L (21-32) Anion Gap 14 (6-14) Blood Urea Nitrogen 14 mg/dL (8-26) Creatinine 0.6 mg/dL (0.7-1.3) Estimated GFR (Cockcroft-Gault) 161.6 BUN/Creatinine Ratio 23 (6-20) Glucose Level 81 mg/dL (70-99) Calcium Level 9.0 mg/dL (8.5-10.1) Total Bilirubin 0.3 mg/dL (0.2-1.0) Aspartate Amino Transf (AST/SGOT) 26 U/L (15-37) Alanine Aminotransferase (ALT/SGPT) 79 U/L (16-63) Alkaline Phosphatase 51 U/L (46-116) Total Protein 6.5 g/dL (6.4-8.2) Albumin 3.5 g/dL (3.4-5.0) Albumin/Globulin Ratio 1.2 (1.0-1.7) Microbiology 06/23/19 Fungal Culture - Preliminary, Resulted 06/23/19 Fungal Culture Result 1 - Preliminary, Resulted 06/23/19 Blood Culture - Final, Complete NO GROWTH AFTER 5 DAYS 06/23/19 Urine Culture - Final, Complete 06/23/19 Urine Culture Result 1 (VINAY) - Final, Complete Medication Medications Current Medications Lacosamide 200 mg/ Dextrose 70 ml @ 120 mls/hr BID IV ; Start 06/30/19 at 21:00 Levetiracetam (Keppra) 500 mg BID PO Last administered on 06/30/19at 08:16; Start 06/29/19 at 21:00; Stop 06/30/19 at 17:00; Status DC Levetiracetam 1500 mg/Dextrose 115 ml @ 440 mls/hr Q12HR IV ; Start 06/30/19 at 18:00 Lorazepam (Ativan Inj) 2 mg Q6HRS IVP ; Start 06/30/19 at 17:00 Valproic Acid 750 mg/Dextrose 57.5 ml @ 55 mls/hr Q8HRS IV ; Start 06/30/19 at 22:00; Status UNV Comment Review of Relevant I have reviewed the following items rosalina (where applicable) has been applied. RADHA WORRELL MD Jun 30, 2019 17:44
[2019-06-30] MEDS: levETIRAcetam 1,500 MG in IV DEXTROSE 5% 100ML 100 ML IV SCH (17:46)
[2019-06-30 18:04] LABS: VAL ACID 70 mcg/mL (50-100)
[2019-06-30 19:01] VITALS: BP 143/86
[2019-06-30] MEDS: LACOSAMIDE 200 MG in IV DEXTROSE 5% 50 ML IV SCH (21:21)
[2019-06-30] MEDS: ENOXAPARIN 40 MG/0.4 ML SYRINGE. SQ SCH (21:21)
[2019-06-30] MEDS: VALPROIC ACID (AS SODIUM SALT) 750 MG in IV DEXTROSE 5% 50 ML IV SCH (21:36)
[2019-06-30 22:42] VITALS: BP 143/97
[2019-07-01] VITALS (7 sets, daily range): BP systolic 95–145; BP diastolic 61–90
[2019-07-01] MEDS: VALPROIC ACID (AS SODIUM SALT) 750 MG in IV DEXTROSE 5% 50 ML IV SCH ×3 (05:55→22:06)
[2019-07-01 06:48] LABS: ALBUMIN 3.3 g/dL (3.4-5.0); CALCIUM 9.1 mg/dL (8.5-10.1); CREATININE 0.7 mg/dL (0.7-1.3); GFR 135.3; POTASSIUM 4.1 mmol/L (3.5-5.1); TOTAL BILIRUBIN 0.3 mg/dL (0.2-1.0); TOTAL PROTEIN 6.6 g/dL (6.4-8.2); VAL ACID 53 mcg/mL (50-100)
--- NOTE | 2019-07-01 07:40 | NUR ---
Assumed care at 0700. Patient resting in bed still confused at times. Patient does try and get out of bed without assistance. Patient encouraged to use call light when needing help. [facility] transfer team called this am, updated on patient condition. [facility] still waiting for bed, states they are unsure if one will be available today or not. no further concerns at this time. Will continue to monitor. Addendum: 07/01/19 at 1341 by CORNELIUS LUNA RN Patient currently having a 24 hour EEG that was ordered by Dr Blair. Dr Blair rounded on patient and states that he is no longer having seizures activity. Dr Blair states that the patient may be taken off of EEG and transfer to or [facility] may be canceled. Plan is for patient to discharge home tomorrow. No further concerns at this time.
[2019-07-01] MEDS: MULTIVITAMIN with MINERAL TABLET. PO SCH (08:52)
[2019-07-01] MEDS: levETIRAcetam 1,500 MG in IV DEXTROSE 5% 100ML 100 ML IV SCH ×2 (08:52→21:02)
[2019-07-01] MEDS: LACOSAMIDE 200 MG in IV DEXTROSE 5% 50 ML IV SCH ×2 (08:56→21:02)
--- NOTE | 2019-07-01 10:40 | PDOC ---
PROGRESS NOTES Chief Complaint Chief Complaint DISCHARGE DX PLAN FOR 07/02 Status epilepticus, resolved MS exacerbation Scattered multifocal moderate to severe T2 and FLAIR hyperintense signal abnormality of the supratentorial parenchyma bilaterally primarily centered in the white matter Acute metabolic encephalopathy, post-ictal Hallucinations Lactic acidosis secondary to seizures and increased work of breathing Leukocytosis Positive influenza screen Acute hypoxic Respiratory failure, (extubated 06/25/2019) Metabolic encephalopathy Fever resolved patient never takes this medication per him and his father. Mr. Lane provided that patient had seizure at age 18 months and seizure in 05/2018 seen in [facility] and had EEG there, but no EEG results. History of Present Illness History of Present Illness 06/29/2019 Patient was seen and examined D/W father regarding diagnosis, progress, plan, and concerns. Father was very anxious about patients condition. D/W RN Reviewed chart Overall, progress has been made since admission 07/01/2019 -Patient was seen and examined IN ICU -Chart reviewed and care discussed with nursing staff. -Pt sitting comfortably in chair. - SCREEN FOR TRANSFER TO [facility] 32 MIN CC TIME Vitals Vitals Vital Signs Date Time Temp Pulse Resp B/P (MAP) Pulse Ox O2 Delivery O2 Flow Rate FiO2 07/01/19 08:00 Room Air 07/01/19 07:00 76 17 143/90 (107) 99 07/01/19 02:52 98.0 98.0 Physical Exam Physical Exam Neuro: CN 2-12 grossly intact b/l. Pt able to high five me. He is unable to read my name of note card. General: Alert, Oriented X3, Cooperative, No acute distress Heart: Regular rate, Normal S1, Normal S2, No murmurs Lungs: Clear Abdomen: Normal bowel sounds, Soft, No tenderness, No hepatosplenomegaly, No masses Extremities: No clubbing, No cyanosis, No edema, Normal pulses, No tenderness/swelling Skin: No rashes, No breakdown, No significant lesion Labs LABS Laboratory Tests Test 06/30/19 17:15 07/01/19 05:25 Valproic Acid (Depakene) Level 70 mcg/mL (50-100) 53 mcg/mL (50-100) Valproic Acid Last Dose Date 06/30/19 06/30/19 Valproic Acid Last Dose Time 1430 2100 Sodium Level 143 mmol/L (136-145) Potassium Level 4.1 mmol/L (3.5-5.1) Chloride Level 105 mmol/L (98-107) Carbon Dioxide Level 28 mmol/L (21-32) Anion Gap 10 (6-14) Blood Urea Nitrogen 12 mg/dL (8-26) Creatinine 0.7 mg/dL (0.7-1.3) Estimated GFR (Cockcroft-Gault) 135.3 BUN/Creatinine Ratio 17 (6-20) Glucose Level 86 mg/dL (70-99) Calcium Level 9.1 mg/dL (8.5-10.1) Total Bilirubin 0.3 mg/dL (0.2-1.0) Aspartate Amino Transf (AST/SGOT) 17 U/L (15-37) Alanine Aminotransferase (ALT/SGPT) 61 U/L (16-63) Alkaline Phosphatase 49 U/L (46-116) Total Protein 6.6 g/dL (6.4-8.2) Albumin 3.3 g/dL (3.4-5.0) Albumin/Globulin Ratio 1.0 (1.0-1.7) Assessment and Plan Assessmemt and Plan Problems Medical Problems: (1) Bandemia Status: Acute (2) Leukocytosis Status: Acute (3) Status epilepticus SS following up with discharge planning. SS received notification from [facility] transfer team stating that pt is currently on waitlist for transfer. They reported that they would contact floor is bed became available. Per Dr. Blair request SS made transfer request to transfer team, , and spoke with Felisa, . SS faxed clinical to fax# [phone] and requested radiology cloud images. Packet, transfer form, and ambulance form on chart. Pt's RN notified. Status: Acute * 0 Pain Scale Type * Descriptive Supine to Sit Assistance Required * Independent Sit to Supine Assistance Required * Independent Transfer Assistance Required * Supervision Transfer Type * Stand-Step Ambulation Assistance Required * Supervision Ambulation Assistive Device * No Device Ambulation Distance * >25 Ft Ambulation Comments * limited by isolation. No loss of balance reaching to the floor, backing 10 Ft. Loss of balance with self-correction with unilateral stance. pt able to easily correct when pushed outside base of support. Pt denies any physical deficits. Pt will require supervision as long as having visual hallucinations. Clinical Presentation * Stable Evaluation Complexity Level * Low Complexity Pt/caregiver agrees with plan of care/goals * Yes Patient condition at conclusion of therapy * Pt in chair * Call light in reach * Phone in reach * PtIn no apparent distress * Pt denies further needs * RN/[employer] CASHIER with patient No Further Skilled P.T. Intervention Required * Eval only-No PT Needs Discharge Recommendation Comments * will need 24 hr supervision Comment Review of Relevant I have reviewed the following items rosalina (where applicable) has been applied. Labs Laboratory Tests Test 06/30/19 02:54 06/30/19 17:15 07/01/19 05:25 White Blood Count 7.9 x10^3/uL (4.0-11.0) Red Blood Count 4.98 x10^6/uL (4.30-5.70) Hemoglobin 15.1 g/dL (13.0-17.5) Hematocrit 43.3 % (39.0-53.0) Mean Corpuscular Volume 87 fL (79-100) Mean Corpuscular Hemoglobin 30 pg (25-35) Mean Corpuscular Hemoglobin Concent 35 g/dL (31-37) Red Cell Distribution Width 12.5 % (11.5-14.5) Platelet Count 448 x10^3/uL (140-400) Sodium Level 142 mmol/L (136-145) 143 mmol/L (136-145) Potassium Level 4.4 mmol/L (3.5-5.1) 4.1 mmol/L (3.5-5.1) Chloride Level 104 mmol/L (98-107) 105 mmol/L (98-107) Carbon Dioxide Level 24 mmol/L (21-32) 28 mmol/L (21-32) Anion Gap 14 (6-14) 10 (6-14) Blood Urea Nitrogen 14 mg/dL (8-26) 12 mg/dL (8-26) Creatinine 0.6 mg/dL (0.7-1.3) 0.7 mg/dL (0.7-1.3) Estimated GFR (Cockcroft-Gault) 161.6 135.3 BUN/Creatinine Ratio 23 (6-20) 17 (6-20) Glucose Level 81 mg/dL (70-99) 86 mg/dL (70-99) Calcium Level 9.0 mg/dL (8.5-10.1) 9.1 mg/dL (8.5-10.1) Total Bilirubin 0.3 mg/dL (0.2-1.0) 0.3 mg/dL (0.2-1.0) Aspartate Amino Transf (AST/SGOT) 26 U/L (15-37) 17 U/L (15-37) Alanine Aminotransferase (ALT/SGPT) 79 U/L (16-63) 61 U/L (16-63) Alkaline Phosphatase 51 U/L (46-116) 49 U/L (46-116) Total Protein 6.5 g/dL (6.4-8.2) 6.6 g/dL (6.4-8.2) Albumin 3.5 g/dL (3.4-5.0) 3.3 g/dL (3.4-5.0) Albumin/Globulin Ratio 1.2 (1.0-1.7) 1.0 (1.0-1.7) Valproic Acid (Depakene) Level 70 mcg/mL (50-100) 53 mcg/mL (50-100) Valproic Acid Last Dose Date 06/30/19 06/30/19 Valproic Acid Last Dose Time 143 2100 Laboratory Tests Test 06/30/19 17:15 07/01/19 05:25 Valproic Acid (Depakene) Level 70 mcg/mL (50-100) 53 mcg/mL (50-100) Valproic Acid Last Dose Date 06/30/19 06/30/19 Valproic Acid Last Dose Time 143 2100 Sodium Level 143 mmol/L (136-145) Potassium Level 4.1 mmol/L (3.5-5.1) Chloride Level 105 mmol/L (98-107) Carbon Dioxide Level 28 mmol/L (21-32) Anion Gap 10 (6-14) Blood Urea Nitrogen 12 mg/dL (8-26) Creatinine 0.7 mg/dL (0.7-1.3) Estimated GFR (Cockcroft-Gault) 135.3 BUN/Creatinine Ratio 17 (6-20) Glucose Level 86 mg/dL (70-99) Calcium Level 9.1 mg/dL (8.5-10.1) Total Bilirubin 0.3 mg/dL (0.2-1.0) Aspartate Amino Transf (AST/SGOT) 17 U/L (15-37) Alanine Aminotransferase (ALT/SGPT) 61 U/L (16-63) Alkaline Phosphatase 49 U/L (46-116) Total Protein 6.6 g/dL (6.4-8.2) Albumin 3.3 g/dL (3.4-5.0) Albumin/Globulin Ratio 1.0 (1.0-1.7) Microbiology 06/23/19 Fungal Culture - Preliminary, Resulted 06/23/19 Fungal Culture Result 1 - Preliminary, Resulted 06/23/19 Blood Culture - Final, Complete NO GROWTH AFTER 5 DAYS 06/23/19 Urine Culture - Final, Complete 06/23/19 Urine Culture Result 1 (VINAY) - Final, Complete Medications Current Medications Propofol 100 ml @ 0 mls/hr CONT PRN IV SEE PROTOCOL Last administered on 06/25/19at 07:19; Start 06/23/19 at 11:00; Stop 06/28/19 at 08:39; Status DC Chlorhexidine Gluconate (Peridex) 15 ml BID MM Last administered on 06/25/19at 09:35; Start 06/23/19 at 21:00; Stop 06/26/19 at 14:53; Status DC Midazolam HCl (Versed) 2 mg PRN Q30MIN PRN IV SEE COMMENTS. Last administered on 06/23/19at 16:13; Start 06/23/19 at 11:00; Stop 06/28/19 at 08:38; Status DC Sodium Chloride 1,000 ml @ 1,000 mls/hr 1X ONCE IV Last administered on 06/23/19at 11:23; Start 06/23/19 at 11:15; Stop 06/23/19 at 12:14; Status DC Propofol 50 ml @ As Directed STK-MED ONCE IV ; Start 06/23/19 at 11:06; Stop 06/23/19 at 11:06; Status DC Midazolam HCl 50 mg/Sodium Chloride 50 ml @ 1 mls/hr 1X ONCE IV Last administered on 06/23/19at 11:43; Start 06/23/19 at 11:15; Stop 06/25/19 at 13 :14; Status DC Propofol 50 ml @ 0 mls/hr 1X ONCE IV Last administered on 06/23/19at 11:19; Start 06/23/19 at 11:30; Stop 06/23/19 at 11:31; Status DC Propofol 50 ml @ 0 mls/hr 1X ONCE IV Last administered on 06/23/19at 11:19; Start 06/23/19 at 11:30; Stop 06/23/19 at 11:31; Status DC Levetiracetam 1000 mg/Dextrose 110 ml @ 440 mls/hr 1X ONCE IV Last administered on 06/23/19at 12:19; Start 06/23/19 at 12:00; Stop 06/23/19 at 12:14; Status DC Lorazepam (Ativan Inj) 4 mg 1X ONCE IVP Last administered on 06/23/19at 11:59; Start 06/23/19 at 12:00; Stop 06/23/19 at 12:01; Status DC Lidocaine HCl (Lidocaine 1% 20ml Vial) 20 ml 1X ONCE INJ Last administered on 06/23/19at 15:00; Start 06/23/19 at 12:30; Stop 06/23/19 at 12:31; Status DC Sodium Chloride 1,000 ml @ 1,000 mls/hr 1X ONCE IV Last administered on 06/23/19at 13:24; Start 06/23/19 at 12:30; Stop 06/23/19 at 13:29; Status DC Midazolam HCl (Versed) 5 mg 1X ONCE IV Last administered on 06/23/19at 10:43; Start 06/23/19 at 13:15; Stop 06/23/19 at 13:16; Status DC Midazolam HCl (Versed) 5 mg 1X ONCE IV Last administered on 06/23/19at 10:49; Start 06/23/19 at 13:15; Stop 06/23/19 at 13:16; Status DC Rocuronium [place] (Zemuron) 50 mg 1X ONCE IV Last administered on 06/23/19at 10:50; Start 06/23/19 at 13:15; Stop 06/23/19 at 13:16; Status DC Lorazepam (Ativan Inj) 2 mg PRN Q1HR PRN IVP TREMORS Last administered on 06/29/19at 00:51; Start 06/23/19 at 13:30; Stop 06/29/19 at 16:39; Status DC Lorazepam (Ativan Inj) 4 mg 1X ONCE IVP Last administered on 06/23/19at 14:22; Start 06/23/19 at 14:30; Stop 06/23/19 at 14:31; Status DC Lorazepam 40 mg/ Sodium Chloride 270 ml @ 0 mls/hr CONT PRN IV SEE PROTOCOL Last administered on 06/23/19at 15:02; Start 06/23/19 at 14:30; Stop 06/28/19 at 08:37; Status DC Ceftriaxone Sodium (Rocephin) 2 gm 1X ONCE IVP Last administered on 06/23/19at 15:16; Start 06/23/19 at 14:30; Stop 06/23/19 at 14:31; Status DC Vancomycin HCl 2 gm/Sodium Chloride 500 ml @ 250 mls/hr 1X ONCE IV Last administered on 06/23/19at 17:27; Start 06/23/19 at 14:30; Stop 06/23/19 at 16:29; Status DC Dexamethasone Sodium Phosphate (Decadron) 10 mg 1X ONCE IVP Last administered on 06/23/19at 15:18; Start 06/23/19 at 14:30; Stop 06/23/19 at 14:31; Status DC Acyclovir Sodium 800 mg/Dextrose 116 ml @ 116 mls/hr 1X ONCE IV ; Start 06/23/19 at 14:30; Stop 06/23/19 at 14:36; Status DC Acyclovir Sodium 800 mg/Dextrose 266 ml @ 266 mls/hr 1X ONCE IV Last administered on 06/23/19at 15:18; Start 06/23/19 at 14:45; Stop 06/23/19 at 15:44; Status DC Ondansetron HCl (Zofran) 4 mg PRN Q8HRS PRN IV NAUSEA/VOMITING; Start 06/23/19 at 15:45; Stop 06/23/19 at 19:58; Status DC Fentanyl Citrate (Fentanyl 2ml Vial) 50 mcg PRN Q1HR PRN IV PAIN; Start 06/23/19 at 15:45; Stop 06/24/19 at 15:44; Status DC Sodium Chloride 1,000 ml @ 125 mls/hr 1X ONCE IV ; Start 06/23/19 at 15:45; Stop 2/18/20 at 23:44; Status DC Propofol 50 ml @ As Directed STK-MED ONCE IV ; Start 06/23/19 at 16:02; Stop 06/23/19 at 16:02; Status DC Levetiracetam 750 mg/Dextrose 107.5 ml @ 420 mls/hr Q12HR IV ; Start 06/23/19 at 17:00; Status Cancel Levetiracetam 750 mg/Dextrose 107.5 ml @ 420 mls/hr Q12HR IV Last administered on 06/26/19at 08:02; Start 06/23/19 at 21:00; Stop 06/26/19 at 14:05; Status DC Lorazepam (Ativan Inj) 2 mg 1X ONCE IVP ; Start 06/23/19 at 17:00; Stop 06/23/19 at 17:01; Status DC Propofol 50 ml @ As Directed STK-MED ONCE IV ; Start 06/23/19 at 17:35; Stop 06/23/19 at 17:35; Status DC Gadoterate Meglumine (Dotarem) 10 ml 1X ONCE IVP Last administered on 06/23at 18:50; Start 06/23/19 at 17:45; Stop 06/23/19 at 17:47; Status DC Gadoterate Meglumine (Dotarem) 10 ml 1X ONCE IVP Last administered on 06/23/19at 18:50; Start 06/23/19 at 17:45; Stop 06/23/19 at 17:47; Status DC Ondansetron HCl (Zofran) 4 mg PRN Q4HRS PRN IV NAUSEA/VOMITING; Start 06/23/19 at 20:00 Acyclovir Sodium 800 mg/Dextrose 266 ml @ 266 mls/hr Q8H IV Last administered on 06/26/19at 06:21; Start 06/23/19 at 23:00; Stop 06/26/19 at 14:47; Status DC Ceftriaxone Sodium (Rocephin) 2 gm Q24H IVP Last administered on 06/24/19at 13:40; Start 06/24/19 at 14:00; Stop 06/25/19 at 11:42; Status DC Vancomycin HCl (Vanco Per Pharmacy) 1 each PRN DAILY PRN MC SEE COMMENTS Last administered on 06/25/19at 10:52; Start 06/23/19 at 20:30; Stop 06/25/19 at 11:44; Status DC Vancomycin HCl 1.5 gm/Sodium Chloride 500 ml @ 250 mls/hr Q8H IV Last administered on 06/24/19at 17:00; Start 06/24/19 at 01:00; Stop 06/24/19 at 17:45; Status DC Vancomycin HCl (Vancomycin Trough Level) 1 each 1X ONCE MC ; Start 06/24/19 at 16:30; Stop 06/24/19 at 16:31; Status DC Oseltamivir Phosphate (Tamiflu Suspension) 75 mg BID PEG Last administered on 06/25/19at 22:09; Start 06/23/19 at 22:00; Stop 06/26/19 at 08:08; Status DC Acetaminophen (Tylenol) 650 mg PRN Q6HRS PRN NG MILD PAIN / TEMP Last administered on 06/29/19at 18:08; Start 06/24/19 at 08:00 Multivitamins/ Minerals Therapeutic (Centrum Multivit-Mineral Liq) 5 ml DAILY NG Last administered on 06/26/19at 08:02; Start 06/24/19 at 09:00; Stop 06/27/19 at 08:43; Status DC Enoxaparin Sodium (Lovenox 40mg Syringe) 40 mg Q24H SQ Last administered on 06/30/19at 21:21; Start 06/24/19 at 21:00 Vancomycin HCl 2 gm/Sodium Chloride 500 ml @ 250 mls/hr Q8H IV Last administered on 06/25/19at 09:35; Start 06/24/19 at 18:00; Stop 06/25/19 at 11:42; Status DC Vancomycin HCl (Vancomycin Trough Level) 1 each 1X ONCE MC ; Start 06/25/19 at 17:30; Stop 06/25/19 at 11:44; Status DC Oseltamivir Phosphate (Tamiflu) 75 mg BID PO Last administered on 06/28/19at 08:32; Start 06/26/19 at 09:00; Stop 06/28/19 at 09:01; Status DC Non-Formulary Medication 1 ea DAILY PO Last administered on 06/28/19at 08:31; Start 06/26/19 at 13:30; Stop 06/28/19 at 14:08; Status DC Levetiracetam (Keppra) 750 mg BID PO ; Start 06/26/19 at 21:00; Stop 06/26/19 at 17:04; Status DC Levetiracetam 1000 mg/Dextrose 110 ml @ 440 mls/hr Q12HR IV Last administered on 06/28/19at 08:43; Start 06/26/19 at 21:00; Stop 06/28/19 at 14:10; Status DC Lacosamide 200 mg/ Dextrose 70 ml @ 120 mls/hr BID IV Last administered on at 08:44; Start 06/26/19 at 21:00; Stop 06/28/19 at 14:09; Status DC Lorazepam (Ativan Inj) 2 mg BID IVP Last administered on 06/28/19at 08:32; Start 06/26/19 at 21:00; Stop 06/28/19 at 14:10; Status DC Multivitamins (Thera M Plus) 1 tab DAILY PO Last administered on 07/01/19at 08:52; Start 06/27/19 at 09:00 Lacosamide (Vimpat) 200 mg BID PO Last administered on 06/30/19at 08:16; Start 06/28/19 at 21:00; Stop 06/30/19 at 17:00; Status DC Levetiracetam (Keppra) 1,000 mg BID PO Last administered on 06/29/19at 10:40; Start 06/28/19 at 21:00; Stop 06/29/19 at 15:12; Status DC Levetiracetam (Keppra) 500 mg BID PO Last administered on 06/30/19at 08:16; Start 06/29/19 at 21:00; Stop 06/30/19 at 17:00; Status DC Valproic Acid 500 mg/Dextrose 55 ml @ 55 mls/hr Q8HRS IV Last administered on 06/30/19at 14:26; Start 06/29/19 at 15:30; Stop 06/30/19 at 17:06; Status DC Lorazepam (Ativan Inj) 2 mg Q8HRS IVP Last administered on 06/30/19at 14:26; Start 06/29/19 at 17:00; Stop 06/30/19 at 17:02; Status DC Levetiracetam 1500 mg/Dextrose 115 ml @ 440 mls/hr Q12HR IV Last administered on 07/01/19at 08:52; Start 06/30/19 at 18:00 Lacosamide 200 mg/ Dextrose 70 ml @ 120 mls/hr BID IV Last administered on 07/01/19at 08:56; Start 06/30/19 at 21:00 Lorazepam (Ativan Inj) 2 mg Q6HRS IVP Last administered on 07/01/19at 05:49; Start 06/30/19 at 17:00 Valproic Acid 750 mg/Dextrose 57.5 ml @ 55 mls/hr Q8HRS IV Last administered on 07/01/19at 05:55; Start 06/30/19 at 22:00 Active Scripts Active Reported Gilenya (Fingolimod Hcl) 0.5 Mg Capsule 0.5 Mg PO DAILY Vitamin D3 (Cholecalciferol (Vitamin D3)) 5,000 Unit Tab.rapdis 1 Tab PO DAILY 30 Days Ginkgo Biloba Extract (Ginkgo Biloba [place] Extract) 60 Mg Capsule 60 Mg PO DAILY Divalproex Sodium 500 Mg Tablet.dr 500 Mg PO DAILY PRN Vitals/I & O Vital Sign - Last 24 Hours 06/30/19 06/30/19 06/30/19 06/30/19 11:01 15:08 19:01 20:00 Temp 97.6 98.7 97.8 97.6 98.7 97.8 Pulse 88 72 84 Resp 20 18 20 B/P (MAP) 140/86 (104) 122/87 (99) 143/86 (105) Pulse Ox 98 97 99 O2 Delivery Room Air Room Air Room Air Room Air 06/30/19 06/30/19 07/01/19 07/01/19 22:42 23:50 02:52 03:03 Temp 97.8 98.0 97.8 98.0 Pulse 93 70 68 Resp 20 20 B/P (MAP) 143/97 (112) 95/61 (72) 125/84 (98) Pulse Ox 99 97 O2 Delivery Room Air Room Air Room Air 07/01/19 07/01/19 07/01/19 03:58 07:00 08:00 Pulse 76 Resp 17 B/P (MAP) 143/90 (107) Pulse Ox 99 O2 Delivery Room Air Room Air Room Air Intake and Output 06/30/19 06/30/19 07/01/19 15:00 23:00 07:00 Intake Total 720 ml 580 ml 1100 ml Output Total 600 ml Balance 720 ml 580 ml 500 ml NAGA LING MD Jul 01, 2019 10:40
--- NOTE | 2019-07-01 11:34 | NUR ---
SS following up with discharge planning. SS received notification from [facility] transfer team stating that pt is currently on waitlist for transfer. They reported that they would contact floor is bed became available. Per Dr. Blair request SS made transfer request to transfer team, , and spoke with Felisa, . SS faxed clinical to fax# [phone] and requested radiology cloud images. Packet, transfer form, and ambulance form on chart. Pt's RN notified.
--- NOTE | 2019-07-01 14:45 | NUR ---
SW following. RN notified SW pt had an EEG today and the seizure activity has stopped. RN reported Dr. Blair does not want to continue with the hospital transfer, as it is no longer needed. RN advised pt likely to discharge home tomorrow (07/02/2019). SW will continue to follow.
--- NOTE | 2019-07-01 15:01 | PDOC ---
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 Seizure x 1, a year ago, now know as status epilepticus in [facility]. Influenza A. Respiratory failure. Metabolic encephalopathy. Fever Lactic acidosis. Leukocytosis. MS. Genital wards likely. Obesity. RECOMMENDATIONS/PLAN: Change Vimpat 200 mg and change it from IV to PO bid. Change Keppra 500 mg bid from IV to PO. Change Depacon 500 mg IV q8h to Depakote ER 750 mg bid. Ativan 2 mg IV q8h, will discontinue at discharge. Treat medical diseases. Discussed in great detail again with him and his mother at bedside on 07/01/19. Cancel transfer request to [facility] on 07/01/19. Plan for discharge on 07/02/19. Patient education for seizure precautions. FU with his neurologist and ADDICTION COUNSELOR in [facility] in [address] for 6 months anytime after a seizure. He fully understood. HCT performed no SAH, ICH or other acute findings. 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 Brain MRI w/wo contrast no acute findings. CSF: Cultures negative. EEG on 06/26/19: Continue subclinical status epilepticus. HSV by PCR negative. EEG on 06/29/19: Improved in some degree but still has continued subclinical status epilepticus at temporal and occipital areas. EEG on 07/01/19: No epileptiform discharges on bedside EEG monitoring based on bedside watching x 30 minutes, but complete results still pending. VPA levels: WNL. HISTORY OF THE PRESENT ILLNESS: This is a 29-year-old male patient with history of MS and seizure. He was brought to the ER of [facility] on 06/23/19 due to persistent seizures. He was reportedly to have a seizure about 1 year ago that was severe enough to be taken to [facility]. According to his parents and partner he was placed on a unknown seizure medication following last episode. This medication was stopped by his neurologist Perfecto Tuttle APRN at [facility] in December of 2018. Prior to this evening he had been dealing with gastroenteritis-like symptoms with nausea and vomiting. His partner said that he was very lethargic this morning and his partner had to dress him. They were on the way to an urgent care when patient's right arm stiffened and he was unable to move it. They were in the middle of it going down the stairs. His partner stated that he carried the patient down the stairs. The patient then began seizing. He and his partner both fell to the ground. His partner was unsure about any head trauma. His partner placed him on his side and immediately dialed 911 and his parents. In route to the hospital via EMT he received 10 mg of Versed was given. He was still seizing in the ER of [facility] and eventually stopped by Ativan and Versed. 07/01/19: Mental status at baseline normal and no clinical seizure. Repeated EEG on 06/29/19 improved in some degree, but still showing frequent epileptiform discharges and subclinical seizures. Subclinic status epilepticus resolved on EEG on 07/01/19. PAST MEDICAL HISTORY: Seizure MS PAST SURGERY HISTORY: No major surgery recently. ALLERGY: Unknown MEDICATIONS: Refer to [facility] HISTORY: Non contributory. SOCIAL HISTORY: Lives with his partner. Denies smoking. He drinks alcohol occasionally. He uses/abuses marijuana. REVIEW OF SYSTEMS: Constitutional: No malnutrition, weight loss, cachexia. Head: No traumatic brain or head injury. Skin: No edema, or rash. Ear: No infection. Eyes: No vision loss or color blindness. Nose: No bleeding or purulent discharges. Hearing: No hearing decrease. Neck: No injury. Cardiac: No CT, arrhythmia,claudication. Pulmonary: Pneumonia. GI: No GI ulcer, GI bleeding. Urinary/genital: UTI. Endocrinologic: Diabetes Mellitus. Skeletomuscular: No muscular atrophy, deformity. Neurological: Seizure, MS. Psychiatric: Marijuana use/abuse. Otherwise, not -wucnf review of systems. PHYSICAL EXAMINATION: General appearance is in subacute distress. HEENT: Normocephalic and nontraumatic. Eyes, nose, ears, and throat are unremarkable. Neck is supple. No crepitus. Cardiovascular: S1, S2, regular rate and rhythm. Pulmonary: On vent. Abdomen: Bowel sounds are positive. Extremities: No rash, lesions, or edema. No restriction of range of motion NEUROLOGICAL EXAMINATION: Off vent. On room air. Alert. Oriented to time, place and person. PERRL EOMI. CN: no focal findings elicited. Muscle tone: WNL Muscle strength: 5 DTR: 2 UE, 1+ at knee. Plantar reflex: Neutral response bilaterally Gait: Not examined while in bed. Sensory exam: No acute abnormal findings. No other cerebellar signs elicited. F-T-N test fine. Objective Objective Vital Signs Date Time Temp Pulse Resp B/P (MAP) Pulse Ox O2 Delivery O2 Flow Rate FiO2 07/01/19 12:12 Room Air 07/01/19 11:00 69 10 101/71 (81) 99 07/01/19 02:52 98.0 98.0 Intake and Output 07/01/19 07:00 Intake Total 2400 ml Output Total 600 ml Balance 1800 ml Intake Oral 2400 ml Output Urine Total 600 ml # Voids 4 # Bowel Movements 1 Vitals Signs Vitals VS - Last 72 Hours, by Label Date Time Temp Pulse Resp B/P (MAP) Pulse Ox O2 Delivery O2 Flow Rate FiO2 07/01/19 12:12 Room Air 07/01/19 11:00 69 10 101/71 (81) 99 Room Air 07/01/19 08:00 Room Air 07/01/19 07:00 76 17 143/90 (107) 99 Room Air 07/01/19 03:58 Room Air 07/01/19 03:03 68 125/84 (98) 07/01/19 02:52 98.0 70 20 95/61 (72) 97 Room Air 98.0 06/30/19 23:50 Room Air 06/30/19 22:42 97.8 93 20 143/97 (112) 99 Room Air 97.8 06/30/19 20:00 Room Air 06/30/19 19:01 97.8 84 20 143/86 (105) 99 Room Air 97.8 06/30/19 15:08 98.7 72 18 122/87 (99) 97 Room Air 98.7 06/30/19 11:01 97.6 88 20 140/86 (104) 98 Room Air 97.6 06/30/19 08:07 97.6 77 18 134/91 (105) 99 Room Air 97.6 06/30/19 08:00 Room Air Laboratory Laboratory Laboratory Tests Test 06/30/19 17:15 07/01/19 05:25 Valproic Acid (Depakene) Level 70 mcg/mL (50-100) 53 mcg/mL (50-100) Valproic Acid Last Dose Date 06/30/19 06/30/19 Valproic Acid Last Dose Time 1430 2100 Sodium Level 143 mmol/L (136-145) Potassium Level 4.1 mmol/L (3.5-5.1) Chloride Level 105 mmol/L (98-107) Carbon Dioxide Level 28 mmol/L (21-32) Anion Gap 10 (6-14) Blood Urea Nitrogen 12 mg/dL (8-26) Creatinine 0.7 mg/dL (0.7-1.3) Estimated GFR (Cockcroft-Gault) 135.3 BUN/Creatinine Ratio 17 (6-20) Glucose Level 86 mg/dL (70-99) Calcium Level 9.1 mg/dL (8.5-10.1) Total Bilirubin 0.3 mg/dL (0.2-1.0) Aspartate Amino Transf (AST/SGOT) 17 U/L (15-37) Alanine Aminotransferase (ALT/SGPT) 61 U/L (16-63) Alkaline Phosphatase 49 U/L (46-116) Total Protein 6.6 g/dL (6.4-8.2) Albumin 3.3 g/dL (3.4-5.0) Albumin/Globulin Ratio 1.0 (1.0-1.7) Microbiology 06/23/19 Fungal Culture - Preliminary, Resulted 06/23/19 Fungal Culture Result 1 - Preliminary, Resulted 06/23/19 Blood Culture - Final, Complete NO GROWTH AFTER 5 DAYS 06/23/19 Urine Culture - Final, Complete 06/23/19 Urine Culture Result 1 (VINAY) - Final, Complete Medication Medications Current Medications Lacosamide 200 mg/ Dextrose 70 ml @ 120 mls/hr BID IV Last administered on 07/01/19at 08:56; Start 06/30/19 at 21:00 Levetiracetam 1500 mg/Dextrose 115 ml @ 440 mls/hr Q12HR IV Last administered on 07/01/19at 08:52; Start 06/30/19 at 18:00 Lorazepam (Ativan Inj) 2 mg Q6HRS IVP Last administered on 07/01/19at 11:59; Start 06/30/19 at 17:00 Valproic Acid 750 mg/Dextrose 57.5 ml @ 55 mls/hr Q8HRS IV Last administered on 07/01/19at 13:59; Start 06/30/19 at 22:00 Comment Review of Relevant I have reviewed the following items rosalina (where applicable) has been applied. RADHA WORRELL MD Jul 01, 2019 15:01
--- NOTE | 2019-07-01 17:24 | NUR ---
Patient family at bedside, family concerned about patient being discharged tomorrow. Family states that the patient currently lives alone with S.O. and he works night custodian. Family believes that the patient is not safe to return home with his S.O. since he would be left alone for several hours of the day. Family states that they have not had time to set their house up for patient to go home with them and be safe. breakdown worker notified and states they will address in the morning. No further concerns at this time. Will continue to monitor and care per plan of care.
--- NOTE | 2019-07-01 19:51 | EEG ---
DATE OF SERVICE: 07/01/2019 EEG NUMBER: We do not have the EEG number. OBJECTIVE: This is a 29-year-old male patient who had clinical status epilepticus. After treatment, his seizures become subclinical status epilepticus so aggressive treatment continued. EEG is requested to evaluate seizure activity. METHODS: Twenty electrodes were applied according to the international 10-20 electrode placement system. EKG monitoring, hyperventilation, intermittent photic stimulation, monopolar and bipolar montages are routinely utilized. The record was obtained on a digital system with video monitoring. MEDICATIONS: Ativan, Depakote, Vimpat, and Keppra. FINDINGS: 1. Background: The patient was recorded in the awake, drowsy, and sleep states. The overall background amplitude is variable. A posterior dominant rhythm of 8 Hz is observed with superimposed fast activity in the beta frequency. 2. Abnormalities: There are infrequent [id number]-[id number] discharges at 1 Hz/s mainly at T6, O2 regions and T5, O1 regions, but with relatively higher amplitude at T6 and O2 regions. No electrographic seizure is seen. Muscle artifact noted. 3. Activation: Hyperventilation was not performed. Intermittent photic stimulation was performed with photic driving. IMPRESSION: This EEG is an abnormal study for the awake, drowsy, and sleep state. There are some epileptiform discharges at mu-ism and occipital regions, more obvious on the right side at 1 Hz/s. No electrographic seizure is seen. Fast activity in the beta frequency is noted, may be medication effects. No electrographic seizure is seen. Compared with the previous EEG on 06/29/19 and 06/26/19, the persistence of subclinical status epilepticus is resolved on today's study. RADHA WORRELL MD DR: ABDIAZIZ/alfred JOB#: [id number] / [id number]
[2019-07-01] MEDS: ENOXAPARIN 40 MG/0.4 ML SYRINGE. SQ SCH (21:07)
[2019-07-02 03:16] VITALS: BP 143/91
[2019-07-02] MEDS: VALPROIC ACID (AS SODIUM SALT) 750 MG in IV DEXTROSE 5% 50 ML IV SCH ×3 (06:02→23:14)
[2019-07-02 07:00] VITALS: BP 130/94
[2019-07-02 07:54] LABS: VAL ACID 77 mcg/mL (50-100)
[2019-07-02 08:09] LABS: ALBUMIN 3.3 g/dL (3.4-5.0); CALCIUM 9.3 mg/dL (8.5-10.1); CREATININE 0.6 mg/dL (0.7-1.3); GFR 161.6; POTASSIUM 4.3 mmol/L (3.5-5.1); TOTAL BILIRUBIN 0.4 mg/dL (0.2-1.0); TOTAL PROTEIN 6.5 g/dL (6.4-8.2)
[2019-07-02] MEDS: levETIRAcetam 1,500 MG in IV DEXTROSE 5% 100ML 100 ML IV SCH ×2 (08:45→22:12)
[2019-07-02] MEDS: MULTIVITAMIN with MINERAL TABLET. PO SCH (08:45)
[2019-07-02] MEDS: LACOSAMIDE 200 MG in IV DEXTROSE 5% 50 ML IV SCH ×2 (09:40→21:18)
--- NOTE | 2019-07-02 10:40 | PDOC ---
[facility] PROGRESS NOTE Chief Complaint Chief Complaint Status epilepticus, resolved MS exacerbation Scattered multifocal moderate to severe T2 and FLAIR hyperintense signal abnormality of the supratentorial parenchyma bilaterally primarily centered in the white matter Acute metabolic encephalopathy, post-ictal Hallucinations Lactic acidosis secondary to seizures and increased work of breathing Leukocytosis Positive influenza screen Acute hypoxic Respiratory failure, (extubated 06/25/2019) Metabolic encephalopathy Fever resolved patient never takes this medication per him and his father. Mr. Lane provided that patient had seizure at age 18 months and seizure in 05/2018 seen in [facility] and had EEG there, but no EEG results. History of Present Illness History of Present Illness 06/29/2019 Patient was seen and examined D/W father regarding diagnosis, progress, plan, and concerns. Father was very anxious about patients condition. D/W RN Reviewed chart Overall, progress has been made since admission 07/01/2019 -Patient was seen and examined IN ICU -Chart reviewed and care discussed with nursing staff. -Pt sitting comfortably in chair. - SCREEN FOR TRANSFER TO [facility] 07/02/2019 Patient seen and examined Chart was reviewed D/W RN and staff Vitals/I&O Vitals/I&O: Vital Signs Date Time Temp Pulse Resp B/P (MAP) Pulse Ox O2 Delivery O2 Flow Rate FiO2 07/02/19 07:00 97.4 83 16 130/94 (106) 98 Room Air 97.4 I & O 07/01/19 07/01/19 07/02/19 15:00 23:00 07:00 Intake Total 642.5 ml 240 ml Output Total 350 ml 300 ml Balance 292.5 ml -60 ml Physical Exam Physical Exam: Neuro: CN 2-12 grossly intact b/l. Pt able to high five me. He is unable to read my name of note card. General: Alert, Oriented X3, Cooperative, No acute distress Heart: Regular rate, Normal S1, Normal S2, No murmurs Lungs: Clear Abdomen: Normal bowel sounds, Soft, No tenderness, No hepatosplenomegaly, No masses Extremities: No clubbing, No cyanosis, No edema, Normal pulses, No tenderness/swelling Skin: No rashes, No breakdown, No significant lesion Labs Labs: Laboratory Tests Test 07/02/19 06:45 Sodium Level 144 mmol/L (136-145) Potassium Level 4.3 mmol/L (3.5-5.1) Chloride Level 105 mmol/L (98-107) Carbon Dioxide Level 26 mmol/L (21-32) Anion Gap 13 (6-14) Blood Urea Nitrogen 12 mg/dL (8-26) Creatinine 0.6 mg/dL (0.7-1.3) Estimated GFR (Cockcroft-Gault) 161.6 BUN/Creatinine Ratio 20 (6-20) Glucose Level 87 mg/dL (70-99) Calcium Level 9.3 mg/dL (8.5-10.1) Total Bilirubin 0.4 mg/dL (0.2-1.0) Aspartate Amino Transf (AST/SGOT) 12 U/L (15-37) Alanine Aminotransferase (ALT/SGPT) 50 U/L (16-63) Alkaline Phosphatase 47 U/L (46-116) Total Protein 6.5 g/dL (6.4-8.2) Albumin 3.3 g/dL (3.4-5.0) Albumin/Globulin Ratio 1.0 (1.0-1.7) Valproic Acid (Depakene) Level 77 mcg/mL (50-100) Valproic Acid Last Dose Date 07/01/19 Valproic Acid Last Dose Time 220 Review of Systems Review of Systems: Patient denies palpitations or CHAN Assessment and Plan Assessmemt and Plan Assessment: Status epilepticus, resolved MS exacerbation Scattered multifocal moderate to severe T2 and FLAIR hyperintense signal abnormality of the supratentorial parenchyma bilaterally primarily centered in the white matter Acute metabolic encephalopathy, post-ictal Hallucinations Lactic acidosis secondary to seizures and increased work of breathing Leukocytosis Positive influenza screen Acute hypoxic Respiratory failure, (extubated 06/25/2019) Metabolic encephalopathy Fever resolved Plan: Plan to D/C today Switch IV Meds to PO Scripts given to RN Encourage outpatient follow up Comment Review of Relevant I have reviewed the following items rosalina (where applicable) has been applied. MARCELLE AQUINO III DO Jul 02, 2019 10:40
[2019-07-02 11:00] VITALS: BP 139/111
[2019-07-02 15:00] VITALS: BP 121/79
--- NOTE | 2019-07-02 16:28 | NUR ---
SS following up with discharge planning. Multiple staff has met with pt and pt's family. Pt not agreeable to transfer to any other hospital. Pt wanting to return to home. Pt's parents agreeable to allow pt to come home with them and stay with them for a short period of time. Per pt's RN, pt will be monitored overnight and will discharge to home with parents tomorrow, 07/03/2019.
--- NOTE | 2019-07-02 17:34 | PDOC ---
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 Seizure x 1, a year ago, now know as status epilepticus in [facility]. Influenza A. Respiratory failure. Metabolic encephalopathy. Fever Lactic acidosis. Leukocytosis. MS. Genital wards likely. Obesity. RECOMMENDATIONS/PLAN: Continue Vimpat 200 mg bid. Continue Keppra 500 mg bid. Continue Depakote ER 750 mg bid. Discontinue Ativan 2 mg IV q8h. Continue Gilenya home regimen for MS treatment. Treat medical diseases. Discussed in great detail again with him and his father and his partner at bedside on 07/02/19. Patient education for seizure precautions. FU with his neurologist and MUSEUM REGISTRAR in [facility] in [address] for 6 months anytime after a seizure. He fully understood. HCT performed no SAH, ICH or other acute findings. 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 Brain MRI w/wo contrast no acute findings. CSF: Cultures negative. EEG on 06/26/19: Continue subclinical status epilepticus. HSV by PCR negative. EEG on 06/29/19: Improved in some degree but still has continued subclinical status epilepticus at temporal and occipital areas. EEG on 07/01/19: No epileptiform discharges on bedside EEG monitoring based on bedside watching x 30 minutes, but complete results still pending. VPA levels: WNL. HISTORY OF THE PRESENT ILLNESS: This is a 29-year-old male patient with history of MS and seizure. He was broug ht to the ER of [facility] on 06/23/19 due to persistent seizures. He was reportedly to have a seizure about 1 year ago that was severe enough to be taken to [facility]. According to his parents and partner he was placed on a unknown seizure medication following last episode. This medication was stopped by his neurologist Perfecto Lane APRN at [facility] in December of 2018. Prior to this evening he had been dealing with gastroenteritis-like symptoms with nausea and vomiting. His partner said that he was very lethargic this morning and his partner had to dress him. They were on the way to an urgent care when patient's right arm stiffened and he was unable to move it. They were in the middle of it going down the stairs. His partner stated that he carried the patient down the stairs. The patient then began seizing. He and his partner both fell to the ground. His partner was unsure about any head trauma. His partner placed him on his side and immediately dialed 911 and his parents. In route to the hospital via EMT he received 10 mg of Versed was given. He was still seizing in the ER of [facility] and eventually stopped by Ativan and Versed. 07/01/19: Mental status at baseline normal and no clinical seizure. Repeated EEG on 06/29/19 improved in some degree, but still showing frequent epileptiform discharges and subclinical seizures. Subclinic status epilepticus resolved on EEG on 07/01/19. 07/02/19: He complained cognitive function impairment as confusional episodes, but he declined transfer to [facility]. Visual hallucinations improved. PAST MEDICAL HISTORY: Seizure MS PAST SURGERY HISTORY: No major surgery recently. ALLERGY: Unknown MEDICATIONS: Refer to [facility]ILY HISTORY: Non contributory. SOCIAL HISTORY: Lives with his partner. Denies smoking. He drinks alcohol occasionally. He uses/abuses marijuana. REVIEW OF SYSTEMS: Constitutional: No malnutrition, weight loss, cachexia. Head: No traumatic brain or head injury. Skin: No edema, or rash. Ear: No infection. Eyes: No vision loss or color blindness. Nose: No bleeding or purulent discharges. Hearing: No hearing decrease. Neck: No injury. Cardiac: No [place], arrhythmia,claudication. Pulmonary: Pneumonia. GI: No GI ulcer, GI bleeding. Urinary/genital: UTI. Endocrinologic: Diabetes Mellitus. Skeletomuscular: No muscular atrophy, deformity. Neurological: Seizure, MS. Psychiatric: Marijuana use/abuse. Otherwise, not [id number] review of systems. PHYSICAL EXAMINATION: General appearance is in subacute distress. HEENT: Normocephalic and nontraumatic. Eyes, nose, ears, and throat are unremarkable. Neck is supple. No crepitus. Cardiovascular: S1, S2, regular rate and rhythm. Pulmonary: On vent. Abdomen: Bowel sounds are positive. Extremities: No rash, lesions, or edema. No restriction of range of motion NEUROLOGICAL EXAMINATION: On room air. Alert. Oriented to time, place and person. PERRL EOMI. CN: no focal findings elicited. Muscle tone: WNL Muscle strength: 5 DTR: 2. Plantar reflex: Neutral response bilaterally Gait: Near normal. Sensory exam: No acute abnormal findings. No other cerebellar signs elicited. F-T-N test fine. Objective Objective Vital Signs Date Time Temp Pulse Resp B/P (MAP) Pulse Ox O2 Delivery O2 Flow Rate FiO2 07/02/19 15:00 97.7 70 16 121/79 (93) 98 Room Air 97.7 Intake and Output 07/02/19 07:00 Intake Total 882.5 ml Output Total 650 ml Balance 232.5 ml Intake Oral 640 ml IV Total 242.5 ml Output Urine Total 650 ml # Voids 4 Vitals Signs Vitals VS - Last 72 Hours, by Label Date Time Temp Pulse Resp B/P (MAP) Pulse Ox O2 Delivery O2 Flow Rate FiO2 07/02/19 15:00 97.7 70 16 121/79 (93) 98 Room Air 97.7 07/02/19 11:00 97.8 70 16 139/111 (120) 98 Room Air 97.8 07/02/19 08:30 Room Air 07/02/19 07:00 97.4 83 16 130/94 (106) 98 Room Air 97.4 07/02/19 03:16 97.0 82 20 143/91 (108) 100 Room Air 97.0 07/01/19 23:00 98.2 92 20 138/84 (102) 100 Room Air 98.2 07/01/19 21:00 Room Air 07/01/19 20:01 97.7 81 20 145/84 (104) 97 Room Air 97.7 07/01/19 15:00 77 17 124/76 (92) 100 Room Air 07/01/19 12:12 Room Air 07/01/19 11:00 69 10 101/71 (81) 99 Room Air 07/01/19 08:00 Room Air 07/01/19 07:00 76 17 143/90 (107) 99 Room Air Laboratory Laboratory Laboratory Tests Test 07/02/19 06:45 Sodium Level 144 mmol/L (136-145) Potassium Level 4.3 mmol/L (3.5-5.1) Chloride Level 105 mmol/L (98-107) Carbon Dioxide Level 26 mmol/L (21-32) Anion Gap 13 (6-14) Blood Urea Nitrogen 12 mg/dL (8-26) Creatinine 0.6 mg/dL (0.7-1.3) Estimated GFR (Cockcroft-Gault) 161.6 BUN/Creatinine Ratio 20 (6-20) Glucose Level 87 mg/dL (70-99) Calcium Level 9.3 mg/dL (8.5-10.1) Total Bilirubin 0.4 mg/dL (0.2-1.0) Aspartate Amino Transf (AST/SGOT) 12 U/L (15-37) Alanine Aminotransferase (ALT/SGPT) 50 U/L (16-63) Alkaline Phosphatase 47 U/L (46-116) Total Protein 6.5 g/dL (6.4-8.2) Albumin 3.3 g/dL (3.4-5.0) Albumin/Globulin Ratio 1.0 (1.0-1.7) Valproic Acid (Depakene) Level 77 mcg/mL (50-100) Valproic Acid Last Dose Date 07/01/19 Valproic Acid Last Dose Time 2200 Microbiology 06/23/19 Fungal Culture - Preliminary, Resulted 06/23/19 Fungal Culture Result 1 - Preliminary, Resulted 06/23/19 Blood Culture - Final, Complete NO GROWTH AFTER 5 DAYS 06/23/19 Urine Culture - Final, Complete 06/23/19 Urine Culture Result 1 (VINAY) - Final, Complete Comment Review of Relevant I have reviewed the following items rosalina (where applicable) has been applied. RADHA WORRELL MD Jul 02, 2019 17:34
--- NOTE | 2019-07-02 18:00 | NUR ---
Patient became confused and unsteady around 1200 and while working with OT and PT. While working with OT and walking around the unit patient lost his balance several times and had vision changes. Which Dr. Blair was made aware of when she rounded on patient. During lunch time patient ate his lunch and went to the bathroom. After coming back to bed, patients dad at bedside, patient started stating to dad that someone brought the food tray already eaten off of and just left it for him to eat. Patient also stating he was leaving the hospital because we were closing so he had to get out of here. Patient not able to follow conversation. Dad was concerned and stated he did not feel comfortable of patient going home in that condition and being alone. He asked me to paged Dr. Blair. Dr. Blair was paged and this RN made Dr. Blair aware of events and dads concerns. Dr. Blair stated to start process to transfer patient to [facility] or to get a second opinion. Patient and father were made aware of plans, patient stated that he did not want to go to another hospital, that he wanted to go home. Patient became very emotional and frustrated. This RN asked patient if he was willing to go home with his parents after discharge for at least a week, to have someone with him at all times, patient agreed. Spoke to Dr. Blair again and Dr. Blair stated that was fine if patients parents were willing to take him home with them. Dad was agreeable. Dr. Blair was also made aware of dad wanting patient to stay over night to monitor him without the IV Ativan he was getting scheduled every 6 hours, and if he could also work with PT and OT before going home. Dr. Blair stated it was okay he could stay and that he would go home tomorrow with family. Dr. Gipson was made aware. Prescriptions for seizure medications in the chart. Night nurse was made aware of discharge plans.
[2019-07-02 19:00] VITALS: BP 136/87
[2019-07-02] MEDS: ENOXAPARIN 40 MG/0.4 ML SYRINGE. SQ SCH (21:00)
[2019-07-02 23:09] VITALS: BP 120/79
[2019-07-03 05:51] VITALS: BP 116/69
[2019-07-03] MEDS: VALPROIC ACID (AS SODIUM SALT) 750 MG in IV DEXTROSE 5% 50 ML IV SCH (05:52)
[2019-07-03 07:00] VITALS: BP 121/76
[2019-07-03 07:17] LABS: ALBUMIN 3.5 g/dL (3.4-5.0); ALBUMIN/GLOBULIN RATIO 1.3 (1.0-1.7); CALCIUM 9.2 mg/dL (8.5-10.1); CREATININE 0.6 mg/dL (0.7-1.3); GFR 161.6; POTASSIUM 4.4 mmol/L (3.5-5.1); TOTAL BILIRUBIN 0.5 mg/dL (0.2-1.0); TOTAL PROTEIN 6.2 g/dL (6.4-8.2)
[2019-07-03] MEDS: MULTIVITAMIN with MINERAL TABLET. PO SCH (08:31)
[2019-07-03] MEDS: levETIRAcetam 1,500 MG in IV DEXTROSE 5% 100ML 100 ML IV SCH (08:32)
[2019-07-03] MEDS: LACOSAMIDE 200 MG in IV DEXTROSE 5% 50 ML IV SCH (08:32)
[2019-07-03] MEDS ORDERED: DIVA500T2 PO (10:57)
[2019-07-03] MEDS ORDERED: LACO200T PO (10:58)
[2019-07-03] MEDS ORDERED: LEVE500T56 PO (10:58)
--- NOTE | 2019-07-03 11:16 | NUR ---
Discharge Note: PT DISCHARGED HOME WITH SELF CARE. PT LEFT FACILITY VIA PRIVATE VEHICLE WITH FATHER. PT STABLE AND ALERT UPON DISCHARGE. PT PIV REMOVED FROM R HAND WITHOUT COMPLICATIONS, BANDAGE APPLIED. PT AND PT FATHER EDUCATED ABOUT DISCHARGE INSTRUCTIONS, DISCHARGE MEDICATIONS, AND FOLLOW-UP CARE. ALL QUESTIONS ANSWERED PER RN KNOWLEDGE. PT LEFT WITH ALL PERSONAL BELONGINGS. HUMA VASQUES Discharge instructions and discharge home medications reviewed with Patient and a copy given. All questions have been answered and understanding verbalized.
--- NOTE | 2019-07-03 12:06 | NUR ---
SW following. Discussed with RN, pt discharged home to parents house with self care. No SW needs.
--- NOTE | 2019-07-03 12:30 | PDOC ---
[employer] PROGRESS NOTE Chief Complaint Chief Complaint Status epilepticus, resolved MS exacerbation Scattered multifocal moderate to severe T2 and FLAIR hyperintense signal abnormality of the supratentorial parenchyma bilaterally primarily centered in the white matter Acute metabolic encephalopathy, post-ictal Hallucinations Lactic acidosis secondary to seizures and increased work of breathing Leukocytosis Positive influenza screen Acute hypoxic Respiratory failure, (extubated 06/25/2019) Metabolic encephalopathy Fever resolved patient never takes this medication per him and his father. Mr. Lane provided that patient had seizure at age 18 months and seizure in 05/2018 seen in [facility] and had EEG there, but no EEG results. History of Present Illness History of Present Illness 06/29/2019 Patient was seen and examined D/W father regarding diagnosis, progress, plan, and concerns. Father was very anxious about patients condition. D/W RN Reviewed chart Overall, progress has been made since admission 07/01/2019 -Patient was seen and examined IN ICU -Chart reviewed and care discussed with nursing staff. -Pt sitting comfortably in chair. - SCREEN FOR TRANSFER TO [facility] 07/02/2019 Patient seen and examined Chart was reviewed D/W RN and staff 07/03/2019 -Chart reviewed and care discussed with nursing staff. Plan is dc with Vitals/I&O Vitals/I&O: Vital Signs Date Time Temp Pulse Resp B/P (MAP) Pulse Ox O2 Delivery O2 Flow Rate FiO2 07/03/19 08:00 Room Air 07/03/19 07:00 98.2 74 16 121/76 (91) 91 98.2 I & O 07/02/19 07/02/19 07/03/19 15:00 23:00 07:00 Intake Total 360 ml 115.0 ml Output Total 0 ml Balance 360 ml 115.0 ml Physical Exam Physical Exam: Neuro: CN 2-12 grossly intact b/l. General: Alert, Oriented X3, Cooperative, No acute distress Heart: Regular rate, Normal S1, Normal S2, No murmurs Lungs: Clear Abdomen: Normal bowel sounds, Soft, No tenderness, No hepatosplenomegaly, No masses Extremities: No clubbing, No cyanosis, No edema, Normal pulses, No tenderness/swelling Skin: No rashes, No breakdown, No significant lesion Labs Labs: Laboratory Tests Test 07/03/19 05:40 Sodium Level 142 mmol/L (136-145) Potassium Level 4.4 mmol/L (3.5-5.1) Chloride Level 105 mmol/L (98-107) Carbon Dioxide Level 27 mmol/L (21-32) Anion Gap 10 (6-14) Blood Urea Nitrogen 13 mg/dL (8-26) Creatinine 0.6 mg/dL (0.7-1.3) Estimated GFR (Cockcroft-Gault) 161.6 BUN/Creatinine Ratio 22 (6-20) Glucose Level 76 mg/dL (70-99) Calcium Level 9.2 mg/dL (8.5-10.1) Total Bilirubin 0.5 mg/dL (0.2-1.0) Aspartate Amino Transf (AST/SGOT) 14 U/L (15-37) Alanine Aminotransferase (ALT/SGPT) 48 U/L (16-63) Alkaline Phosphatase 47 U/L (46-116) Total Protein 6.2 g/dL (6.4-8.2) Albumin 3.5 g/dL (3.4-5.0) Albumin/Globulin Ratio 1.3 (1.0-1.7) Review of Systems Review of Systems: Denies Chest pain or SOA Assessment and Plan Assessmemt and Plan Problems Medical Problems: (1) Bandemia Status: Acute (2) Leukocytosis Status: Acute (3) Status epilepticus Status: Acute ASSESSMENT: Status epilepticus, resolved MS exacerbation Scattered multifocal moderate to severe T2 and FLAIR hyperintense signal abnormality of the supratentorial parenchyma bilaterally primarily centered in the white matter Acute metabolic encephalopathy, post-ictal Hallucinations Lactic acidosis secondary to seizures and increased work of breathing Leukocytosis Positive influenza screen Acute hypoxic Respiratory failure, (extubated 06/25/2019) Metabolic encephalopathy Fever resolved PLAN: -Neurology following -No driving for 6 months anytime after a seizure -Continue Seizure ppx regimen -Encourage outpatient follow up with neurology -DVT ppx -Full code -Discharge today to home, scripts given to RN Comment Review of Relevant I have reviewed the following items rosalina (where applicable) has been applied. MARCELLE AQUINO III DO Jul 03, 2019 12:30
--- NOTE | 2019-07-04 10:19 | DS ---
DATE OF DISCHARGE: 07/03/2019 ADMISSION DIAGNOSES: Respiratory failure with status epilepticus. DISCHARGE DIAGNOSES: Resolving respiratory failure, resolving status epilepticus. HOSPITAL COURSE: The patient is a pleasant 29-year-old male who presented with severe seizures. He has had a long history of seizure disorder. We admitted the patient, we intubated him. We consulted Pulmonary and Neurology. Over the next week or so, we were able to get him extubated. We had to adjust his seizure meds. Over the past few days, he has been doing well with physical therapy and occupational therapy. We consider sending him to nursing home, but to the patient really just rather get home with his parents. Yesterday, we discharged home with home health. DISPOSITION: Home with home health. ACTIVITY: As tolerated. DIET: Low sodium. MEDICATIONS: Vimpat 200 mg p.o. twice a day by mouth, Keppra 500 mg p.o. b.i.d., Depakote 750 mg p.o. b.i.d. His initial scripts reflected slightly different dosing, but after consulting with his mom this morning by phone and rechecking with the pharmacy and triple checked in the chart, it appears Dr. Blair's last progress note actually said that he should be on the above doses, so we went with those instead. I did write these new medications down for his mom and sent her an email per her request, reflecting the new medication adjustments. Total time 32 minutes. MARCELLE AQUINO DO DR: TIMMY/alfred JOB#: [id number] / [id number]
== END 2019-07-03 11:27 | disposition home or self-care (01) | DRG 100 ==
LOC: ER 10:38 → 1 WEST ICU 15:12 → 5 SOUTH 06-27 17:20 → 1 WEST ICU 06-30 19:33 → 5 SOUTH 07-01 19:59
PROVIDERS: ADMIT Internal Medicine; ATTEND Internal Medicine
PROC: 009U3ZX Drainage of Spinal Canal, Percutaneous Approach, Diagnostic (ICD-10-PCS; principal; 2019-06-23)
PROC: 5A1945Z Respiratory Ventilation, 24-96 Consecutive Hours (ICD-10-PCS; 2019-06-23)
PROC: 0BH17EZ Insertion of Endotracheal Airway into Trachea, Via Natural or Artificial Opening (ICD-10-PCS; 2019-06-23)
DX: G40.901 Epilepsy, unspecified, not intractable, with status epilepticus (principal); J96.01 Acute respiratory failure with hypoxia; G93.41 Metabolic encephalopathy; E87.2 Acidosis; R44.3 Hallucinations, unspecified; E66.9 Obesity, unspecified; F12.10 Cannabis abuse, uncomplicated; J10.1 Influenza due to other identified influenza virus with other respiratory manifestations; D72.829 Elevated white blood cell count, unspecified; D72.825 Bandemia; G35 Multiple sclerosis; Z68.31 Body mass index [BMI] 31.0-31.9, adult; Z79.899 Other long term (current) drug therapy; Z81.8 Family history of other mental and behavioral disorders
CPT/HCPCS: 31500; 36415; 36600; 51702; 62270; 70450; 70553; 71045; 80048; 80053; 80164; 80202; 80307; 81001; 82550; 82565; 82787; 82805; 82945; 82962; 83605; 83735; 83916; 84157; 85007; 85025; 85027; 85610; 85730; 86644; 86645; 86664; 86703; 87040; 87071; 87075; 87086; 87102; 87252; 87529; 87804; 89051; 94002; 94003; 95813; 95816; 95951; 96365; 96367; 96375; 96376; A9575; C9254; G0480; J0133; J0696; J1100; J1650; J1953; J2060; J2250; J2704; J3370; J7030; J7040; J7050; J7060; 97530; 97535; 99291-25; G0378